=== PATIENT | male | born 1940 | race Caucasian/White ===

== ENCOUNTER 2016-05-05 16:18 | Inpatient (IN) | payer OTHER ==
[2016-05-05 16:50] VITALS: BMI 26.6
--- NOTE | 2016-05-05 16:53 | PDOC ---
History of Present Illness - History of Present Illness Initial Comments: 05/05/16 17:29 The patient is a 65 year old male with no significant past medical history hypertension, diabetes, hyperlipidemia, CAD s/p 4 stents who presents to the emergency department with cough, fever, and sore throat for the last 3 days. The patient states his symptoms have been getting worse so he went to see his PMD earlier today who referred him to the ED. He reports a fever, Tmax 102.4 F with associated chills. The patient has a productive cough with white sputum. The patient denies any chest pain or shortness of breath. He denies associated chills. The patient denies any abdominal pain, nausea, or vomiting. He denies any recent sick contacts. The patient is a former smoker and quit >10 years ago. PMD: Dr. Reddy <Christine Romo - Last Filed: 05/05/16 17:29> - General History Source: Patient, Old Records Exam Limitations: No Limitations <Albina Landis - Last Filed: 05/05/16 18:51> - General Chief Complaint: SIRS, Suspected/Possible Stated Complaint: FEVER Time Seen by Provider: 05/05/16 16:31 Past History <Christine Romo - Last Filed: 05/05/16 17:29> - Past Medical History Anemia: No Asthma: No Cancer: No Cardiac Disorders: Yes (STENT, PACEMAKER) CVA: No COPD: No CHF: No Dementia: No Diabetes: Yes (NIDDM) GI Disorders: Yes (VILLOUS MASS) Disorders: No HTN: Yes Hypercholesterolemia: Yes Liver Disease: No Seizures: No Thyroid Disease: No - Surgical History Abdominal Surgery: No Appendectomy: No Cardiac Surgery: Yes (OPEN HEART SX, STENT PLACEMENT) Cholecystectomy: No Lung Surgery: No Neurologic Surgery: No Orthopedic Surgery: No - Psycho/Social/Smoking Cessation Hx Anxiety: No Suicidal Ideation: No Smoking History: Never smoked Have you smoked in the past 12 months: No Information on smoking cessation initiated: No Hx Alcohol Use: No Drug/Substance Use Hx: No Substance Use Type: None Hx Substance Use Treatment: No <Albina Landis - Last Filed: 05/05/16 18:51> - Past Medical History Allergies/Adverse Reactions: Allergies Allergy/AdvReac Type Severity Reaction Status Date / Time No Known Allergies Allergy Verified 05/05/16 16:50 Home Medications: Ambulatory Orders Amlodipine Besylate [Norvasc -] 10 mg PO DAILY 07/28/12 Aspirin 81 mg PO DAILY 07/28/12 Atorvastatin Ca [Lipitor] 40 mg PO HS 07/28/12 Carvedilol [Coreg -] 25 mg PO DAILY 07/28/12 Furosemide [Lasix -] 40 mg PO DAILY 07/28/12 Glipizide [Glucotrol -] 5 mg PO DAILY@0700 07/28/12 Review of Systems - Review of Systems Able to Perform ROS?: Yes Comments:: 05/05/16 17:29 GENERAL/CONSTITUTIONAL: +Fever. No chills. No weakness. HEAD, EYES, EARS, NOSE AND THROAT: No change in vision. No ear pain or discharge. No sore throat. CARDIOVASCULAR: No chest pain or shortness of breath. RESPIRATORY: +Cough. No wheezing or hemoptysis. GASTROINTESTINAL: No nausea, vomiting, diarrhea or constipation. GENITOURINARY: No dysuria, frequency, or change in urination. MUSCULOSKELETAL: No joint or muscle swelling or pain. No neck or back pain. SKIN: No rash NEUROLOGIC: No headache, vertigo, loss of consciousness, or change in strength/ sensation. ENDOCRINE: No increased thirst. No abnormal weight change. HEMATOLOGIC/LYMPHATIC: No anemia, easy bleeding, or history of blood clots. ALLERGIC/IMMUNOLOGIC: No hives or skin allergy. <Christine Romo - Last Filed: 05/05/16 17:29> *Physical Exam - Vital Signs Last Vital Signs Temp Pulse Resp BP Pulse Ox 102.3 F H 70 18 118/65 95 05/05/16 16:20 05/05/16 16:20 05/05/16 16:20 05/05/16 16:20 05/05/16 16:20 - Physical Exam Comments: 05/05/16 17:29 GENERAL: Awake, alert, and fully oriented, in no acute distress HEAD: No signs of trauma EYES: PERRLA, EOMI, sclera anicteric, conjunctiva clear ENT: Auricles normal inspection, hearing grossly normal, nares patent, oropharynx clear without exudates. Moist mucosa NECK: Normal ROM, supple, no lymphadenopathy, JVD, or masses LUNGS: +Diffuse rhonchi with expiratory wheezing HEART: Regular rate and rhythm, normal S1 and S2, no murmurs, rubs or gallops ABDOMEN: Soft, nontender, normoactive bowel sounds. No guarding, no rebound. No masses EXTREMITIES: Normal range of motion, no edema. No clubbing or cyanosis. No cords, erythema, or tenderness NEUROLOGICAL: Cranial nerves II through XII grossly intact. Normal speech, normal gait SKIN: Warm, Dry, normal turgor, no rashes or lesions noted. <Christine Romo - Last Filed: 05/05/16 17:29> - Vital Signs Last Vital Signs Temp Pulse Resp BP Pulse Ox 102.3 F H 70 18 118/65 95 05/05/16 16:20 05/05/16 16:20 05/05/16 16:20 05/05/16 16:20 05/05/16 16:20 <Albina Landis - Last Filed: 05/05/16 18:51> ED Treatment Course - LABORATORY CBC & Chemistry Diagram: 05/05/16 17:25 05/05/16 17:25 <Albina Landis - Last Filed: 05/05/16 18:51> Medical Decision Making - Medical Decision Making 05/05/16 17:25 75-year-old male with history of hypertension, PM, diabetes and hyperlipidemia who presents to the emergency department with five-day history of fever and cough productive with white sputum; the patient is febrile to 102.4 F in the emergency department. Differential diagnosis includes but is not limited to: Influenza, pneumonia, URI, CHF exacerbation, reactive airway disease, electrolyte abnormality, dehydration, toxic/metabolic derangement. Plan: 1. Labs 2. Chest x-ray 3. DuoNeb treatment 4. Tylenol for fever 5. Observe and reevaluate 05/05/16 18:32 Addendum: Labs are remarkable for a troponin that was elevated at 0.19 and a BNP is 15,000. Chest x-ray is still pending. We will call Dr. Reddy for admission. <Albina Landis - Last Filed: 05/05/16 18:51> *DC/Admit/Observation/Transfer - Attestations Scribe Attestion: 05/05/16 17:29 Documentation prepared by Christine Romo, acting as medical consultant for Albina Landis MD. <Christine Romo - Last Filed: 05/05/16 17:29> - Discharge Dispostion Admit: Yes - Attestations Physician Attestion: 05/05/16 17:27 I, Dr. Albina Landis, attest that the scribes documentation that appears above has been prepared under my direction and personally reviewed by me in its entirety. I confirmed that the note above accurately reflects all work, treatment, procedures, and medical decision-making performed by me. <Albina Landis - Last Filed: 05/05/16 18:51> Diagnosis at time of Disposition: Fever, Systemic inflammatory response syndrome (SIRS) - Discharge Dispostion Disposition: HOME Condition at time of disposition: Stable - Referrals Referrals: Gordon Reddy MD [Primary Care Provider] -
[2016-05-05] MEDS ORDERED: ACETAMINOPHEN 500 MG TABLET (FP) PO ONE (16:56)
[2016-05-05] MEDS ORDERED: ACETAMINOPHEN 325 MG TABLET (FP) ONE (17:22)
[2016-05-05] MEDS ORDERED: IPRATROPIUM BR 0.02% 0.5 MG/2.5 ML VIAL.NEB. NEB ONE (17:28)
[2016-05-05] MEDS ORDERED: ALBUTEROL SO4 0.083% IH SOL 2.5 MG/3 ML VIAL.NEB. NEB ONE (17:28)
[2016-05-05] MEDS ORDERED: ALBUTEROL SO4 2.5/IPRATROPIUM 0.5 INH SOL 3 ML VIAL.NEB. NEB ONE (17:29)
[2016-05-05 17:35] LABS: MCHC 32.5 g/dl (32.0-35.9); MEAN CELL VOLUME 85.9 fl (80-96); MEAN PLT VOLUME 9.4 fl (7.5-11.1); PLATELET COUNT 213 K/MM3 (134-434); RDW 14.9 % (11.9-15.9); WHITE BLOOD COUNT 11.4 K/mm3 (4.0-10.0)
[2016-05-05 18:22] LABS: ALBUMIN 2.9 g/dl (3.4-5.0); BILIRUBIN,TOTAL 2.3 mg/dL (0.2-1.0); CALCIUM 8.1 mg/dL (8.5-10.1); CREATININE 1.5 mg/dL (0.7-1.3); TOT PROT 6.6 g/dl (6.4-8.2)
[2016-05-05 18:25] LABS: TROPONIN I 0.19 ng/ml (0.00-0.05)
[2016-05-05] MEDS ORDERED: AZITHROMYCIN IVPB 500 MG in DEXTROSE 5%-WATER - 250 ML IVPB ONE (18:33)
[2016-05-05 18:49] LABS: PLATELET ESTIMATE ADEQUATE (NORMAL)
[2016-05-05 19:08] LABS: URINE APPEARANCE CLEAR; URINE BILIRUBIN NEGATIVE (NEGATIVE); URINE BLOOD NEGATIVE (NEGATIVE); URINE COLOR YELLOW; URINE GLUCOSE (UA) NEGATIVE (NEGATIVE); URINE KETONE NEGATIVE (NEGATIVE); URINE LEUK ESTERASE NEGATIVE (NEGATIVE); URINE NITRITE NEGATIVE (NEGATIVE); URINE PROTEIN NEGATIVE (NEGATIVE); URINE UROBILINOGEN NEGATIVE E.U./dl (0.2-1.0)
[2016-05-05] MEDS ORDERED: CEFTRIAXONE 50 ML ONE (19:16)
[2016-05-05] MEDS ORDERED: AZITHROMYCIN IVPB 250 ML IVPB ONE (19:16)
[2016-05-05] MEDS ORDERED: ACETAMINOPHEN 325 MG TABLET (FP) PO PRN (20:05)
[2016-05-05] MEDS ORDERED: ATORVASTATIN CA 40 MG TABLET (FP) ONE (22:18)
[2016-05-05] MEDS ORDERED: ASPIRIN 81 MG CHEWABLE TABLETS ONE (22:18)
[2016-05-05] MEDS ORDERED: CARVEDILOL 12.5 MG TABLET (FP) ONE (22:18)
[2016-05-05] MEDS: ASPIRIN 81 MG CHEWABLE TABLETS PO SCH (22:58)
[2016-05-05] MEDS: CARVEDILOL 25 MG TABLET (FP) PO SCH (22:58)
[2016-05-05] MEDS: ATORVASTATIN CA 40 MG TABLET (FP) PO SCH (22:59)
[2016-05-05] MEDS ORDERED: HEPARIN NA (PORCINE) 5,000 UNITS/ML 1ML VIAL ONE (23:00)
[2016-05-05] MEDS: HEPARIN NA (PORCINE) 5,000 UNITS/ML 1ML VIAL SQ SCH (23:01)
[2016-05-05 23:29] LABS: TROPONIN I 0.13 ng/ml (0.00-0.05)
[2016-05-05] MEDS: methylPREDNISolone NA SUCC 40 MG/1 ML VIAL IVPB SCH (23:53)
[2016-05-06] MEDS: ALBUTEROL SO4 2.5/IPRATROPIUM 0.5 INH SOL 3 ML VIAL.NEB. NEB SCH ×2 (00:17→07:00)
[2016-05-06] MEDS: glipiZIDE 5 MG TABLET (FP) PO SCH (06:29)
[2016-05-06 07:33] LABS: BASOPHIL 0.3 % (0-2.0); MCH 28.3 pg (25.7-33.7); MCHC 32.9 g/dl (32.0-35.9); MEAN PLT VOLUME 9.2 fl (7.5-11.1); NEUTROPHILS 90.6 % (42.8-82.8); PLATELET COUNT 217 K/MM3 (134-434); RDW 15.1 % (11.9-15.9)
[2016-05-06 07:59] LABS: ALBUMIN 2.9 g/dl (3.4-5.0); CALCIUM 8.4 mg/dL (8.5-10.1)
--- NOTE | 2016-05-06 08:05 | HP ---
Admitting History and Physical - Primary Care Physician PCP: DR NITO LEONARDO - Admission History of Present Illness: 65 year old male with no significant past medical history hypertension, diabetes , hyperlipidemia, CAD s/p 4 stents who presents to the emergency department with cough, fever, and sore throat for the last 3 days. The patient states his symptoms have been getting worse so he went to see his PMD earlier today who referred him to the ED. He reports a fever, Tmax 102.4 F with associated chills. The patient has a productive cough with white sputum. The patient denies any chest pain or shortness of breath. He denies associated chills. The patient denies any abdominal pain, nausea, or vomiting. He denies any recent sick contacts. The patient is a former smoker and quit >10 years ago. THIS AM PT FEELS BETTER - Past Medical History Cardiovascular: Yes: CAD (Stent placement.), CHF, HTN, Hyperlipdemia. No: AFIB - Smoking History Smoking history: Never smoked Have you smoked in the past 12 months: No - Alcohol/Substance Use Hx Alcohol Use: No History of Substance Use: reports: None Home Medications - Allergies Allergies/Adverse Reactions: Allergies Allergy/AdvReac Type Severity Reaction Status Date / Time No Known Allergies Allergy Verified 05/05/16 16:50 - Home Medications Home Medications: Ambulatory Orders Amlodipine Besylate [Norvasc -] 10 mg PO DAILY 07/28/12 Aspirin 81 mg PO DAILY 07/28/12 Atorvastatin Ca [Lipitor] 40 mg PO HS 07/28/12 Carvedilol [Coreg -] 25 mg PO DAILY 07/28/12 Furosemide [Lasix -] 40 mg PO DAILY 07/28/12 Glipizide [Glucotrol -] 5 mg PO DAILY@0700 07/28/12 Review of Systems - Review of Systems Constitutional: reports: Fever HENT: reports: Throat Pain Cardiovascular: denies: Chest Pain Respiratory: reports: Cough, Wheezing. denies: SOB on Exertion Gastrointestinal: denies: Abdominal Pain Genitourinary: reports: No Symptoms Physical Examination Vital Signs: Vital Signs Temperature 97.3 F L 05/06/16 07:43 Pulse Rate 71 05/06/16 07:43 Respiratory Rate 18 05/06/16 07:43 Blood Pressure 108/67 05/06/16 07:43 O2 Sat by Pulse Oximetry (%) 95 05/06/16 07:40 Neck: Yes: Supple Cardiovascular: Yes: Regular Rate and Rhythm, Murmur Respiratory: Yes: Diminished, Rhonchi, Wheezes Gastrointestinal: Yes: Normal Bowel Sounds, Soft Edema: No Labs: CBC, BMP 05/06/16 05:35 Problem List - Problems (1) Fever Assessment/Plan: DUE TO RESPIRATORY SYMPTOMS FLU NEG CT OF CHEST ABX Code(s): R50.9 - FEVER, UNSPECIFIED (2) Chronic systolic CHF (congestive heart failure) Assessment/Plan: MONITOR ON MEDS Code(s): I50.22 - CHRONIC SYSTOLIC (CONGESTIVE) HEART FAILURE (3) Diabetes mellitus Assessment/Plan: BGM HA1C Code(s): E11.9 - TYPE 2 DIABETES MELLITUS WITHOUT COMPLICATIONS (4) Hypertension Assessment/Plan: Vital Signs Period Temp Pulse Resp BP Sys/Alfaro Pulse Ox Last 24 Hr 97.3 F-102.3 F 70-72 16-24 97-118/50-70 95-99 Code(s): I10 - ESSENTIAL (PRIMARY) HYPERTENSION (5) ICD (implantable cardioverter-defibrillator) malfunction Assessment/Plan: CARDIO Code(s): T82.9XXA - UNSP COMP OF CARDIAC AND VASCULAR PROSTH DEV/GRFT, INIT (6) Elevated troponin Assessment/Plan: MAYBE DEMAND TEL FOLLOW CE CARDIO Code(s): R79.89 - OTHER SPECIFIED ABNORMAL FINDINGS OF BLOOD CHEMISTRY
[2016-05-06 08:07] LABS: BILIRUBIN,TOTAL 1.5 mg/dL (0.2-1.0); CREATININE 1.3 mg/dL (0.7-1.3); TOT PROT 6.7 g/dl (6.4-8.2); TROPONIN I 0.08 ng/ml (0.00-0.05)
[2016-05-06] MEDS: methylPREDNISolone NA SUCC 40 MG/1 ML VIAL IVPB SCH ×3 (09:16→21:32)
[2016-05-06] MEDS: HEPARIN NA (PORCINE) 5,000 UNITS/ML 1ML VIAL SQ SCH ×2 (09:16→21:32)
[2016-05-06] MEDS: CARVEDILOL 25 MG TABLET (FP) PO SCH ×2 (09:16→21:33)
[2016-05-06] MEDS: ASPIRIN 81 MG CHEWABLE TABLETS PO SCH (09:18)
[2016-05-06] MEDS: FUROSEMIDE 40 MG TABLET (FP) PO SCH (09:19)
[2016-05-06] MEDS: cefTRIAXone 1 GM/50 ML BAG (PRE-DOCKED) IVPB SCH (09:21)
--- NOTE | 2016-05-06 09:35 | PN ---
Progress Note (short form) - Note Progress Note: ID Consult dictated Probable community acquired v. atypical pneumonia Possible sepsis secondary to pneumonia Bronchospasm Await sputum c/s, legionella/pneumococcal ag CT chest Continue empiric ceftriaxone/ zithromax
[2016-05-06] MEDS ORDERED: AZITHROMYCIN IVPB 500 MG in DEXTROSE 5%-WATER - 250 ML IVPB SCH (10:00)
[2016-05-06] MEDS ORDERED: CEFTRIAXONE 1 GM in DEXTROSE 5%-WATER - 100 ML IVPB SCH (10:00)
[2016-05-06] MEDS ORDERED: amLODIPine BESYLATE 10 MG TABLET (FP) PO SCH (10:00)
--- NOTE | 2016-05-06 10:42 | CONS ---
INFECTIOUS DISEASE CONSULTATION DATE OF CONSULTATION: DATE OF DICTATION: 05/06/2016 The patient is a 75-year-old male with a history of coronary artery disease, former smoker, evaluated for possible pneumonia. The patient was sent to the emergency room by his primary care physician after he was noted to have fever. According to the PMD, he had complained of sinus congestion, sore throat, and cough. He was evaluated in the emergency room where his temperature was 102.3. A rapid flu antigen was performed and was negative. He was noted to have diffuse wheezing and rales. Chest x-ray showed increased markings bilaterally. Cultures were obtained. He was empirically treated with Zithromax and ceftriaxone. The patient has a significant cardiac history. He is status post multiple coronary artery stents, bypass surgery, and implanted defibrillator. He denies any recent hospitalizations. The patient lives at home alone. He denies any ill contacts. He has a home health aide who comes 6 hours daily. He is a former smoker, states he stopped many years ago and was never a heavy smoker. He states he was up to date with respect to his influenza vaccine. No recent hospitalizations. No recent travel or significant pet exposure. PAST MEDICAL HISTORY: Positive for coronary artery disease, hypertension, hyperlipidemia, congestive heart failure, diabetes mellitus, colonic polyps, diverticulosis. PAST SURGICAL HISTORY: Status post coronary artery bypass graft and implanted defibrillator. ALLERGIES: No known allergies. MEDICATIONS: Include Solu-Medrol, Zithromax, ceftriaxone, Tylenol, Coreg, Norvasc, Lipitor, Lasix, aspirin, Glucotrol. SOCIAL HISTORY: He lives alone at home. He is originally from [place], has been living in the [facility] since [address]. 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 He is a former smoker, stopped many years ago. No history of alcoholism or illicit drug use. SYSTEMS REVIEW: Neurologic: No loss of consciousness, seizure activity, or focal weakness. Cardiac: Negative chest pain or palpitations. Respiratory: As per HPI. Gastrointestinal: Negative vomiting or diarrhea. Genitourinary: Negative for urinary tract infection. LABORATORY DATA: White count on admission 11.4, presently 11.0; hematocrit 36.2; platelet count 217. BUN 31, creatinine 1.3. Urinalysis: Negative leukocyte esterase. Chest x-ray shows increased pulmonary vascular congestion bilaterally. PHYSICAL EXAMINATION: General: He is awake and alert. He is in no acute respiratory distress. Vital Signs: Temperature 97.3, T-max 102.3; blood pressure 108/67; pulse 71, regular; respirations 18 per minute. HEENT: Sclerae anicteric. Neck: Supple. Heart: Sounds S1, S2. No murmur. Lungs: Diffuse wheezing bilaterally. Scattered rhonchi. Bibasilar crepitations. Abdomen: Soft. No tenderness elicited. No mass, rebound, or rigidity. Extremities: Edema 1+. IMPRESSION: 1. Probable community-acquired versus atypical pneumonia. 2. Possible sepsis secondary to pneumonia. 3. Asthmatic bronchitis with bronchospasm. 4. Possible viral syndrome. 5. Coronary artery disease. We will obtain sputum culture, urine, legionella, and pneumococcal antigens. Continue intravenous corticosteroids and inhaled bronchodilators. Empiric coverage for community-acquired/atypical pathogens with Zithromax and ceftriaxone. A CAT scan of the chest has been ordered. Further recommendations pending cultures. We will follow. Thank you for the kind referral. GENESIS ANNE M.D. [id number]
--- NOTE | 2016-05-06 11:08 | CON.CARD ---
Consult Consult Specialty:: cardiology Reason for Consultation:: hx CABG, systolic CHF; ICD. Now with respiratory compromise; sepsis - History of Present Illness Chief Complaint: Pt denies chest pain or dyspnea. History of Present Illness: The patient is a 65 year old male with past medical history NM, CABG 2002, subsequent coronary stents, systoic CHF; s/p ICD, hypertension, diabetes, hyperlipidemia, who presents to the emergency department with cough, fever, and sore throat for the last 3 days. The patient states his symptoms have been getting worse so he went to see his PMD earlier today who referred him to the ED. He reports a fever, Tmax 102.4 F with associated chills. The patient has a productive cough with white sputum. The patient denies any chest pain or shortness of breath. He denies associated chills. The patient denies any abdominal pain, nausea, or vomiting. He denies any recent sick contacts. The patient is a former smoker and quit in 2005. PMD: Dr. Reddy - History Source History Provided By: Patient, Medical Record Limitations to Obtaining History: No Limitations - Past Medical History Cardio/Vascular: Yes: CAD (Stent placement.), CHF, HTN, Hyperlipdemia. No: AFIB Pulmonary: Yes: Bronchitis, Pneumonia - Past Surgical History Past Surgical History: Yes: AICD, CABG, Stent (coronary) - Alcohol/Substance Use Hx Alcohol Use: No History of Substance Use: reports: None - Smoking History Smoking history: Never smoked Have you smoked in the past 12 months: No - Social History Usual Living Arrangement: Alone Home Medications - Allergies Allergies/Adverse Reactions: Allergies Allergy/AdvReac Type Severity Reaction Status Date / Time No Known Allergies Allergy Verified 05/05/16 16:50 - Home Medications Home Medications: Ambulatory Orders Amlodipine Besylate [Norvasc -] 10 mg PO DAILY 07/28/12 Aspirin 81 mg PO DAILY 07/28/12 Atorvastatin Ca [Lipitor] 40 mg PO HS 07/28/12 Carvedilol [Coreg -] 25 mg PO DAILY 07/28/12 Furosemide [Lasix -] 40 mg PO DAILY 07/28/12 Glipizide [Glucotrol -] 5 mg PO DAILY@0700 07/28/12 Family Disease History - Family Disease History Family History: Denies Review of Systems - Review of Systems Constitutional: reports: Chills, Fever Eyes: reports: No Symptoms HENT: reports: Nasal Congestion Neck: reports: No Symptoms Cardiovascular: reports: No Symptoms Respiratory: reports: Cough, SOB on Exertion, Wheezing Gastrointestinal: reports: No Symptoms Genitourinary: reports: No Symptoms Breasts: reports: No Symptoms Reported Musculoskeletal: reports: No Symptoms Integumentary: reports: No Symptoms Neurological: reports: No Symptoms Endocrine: reports: No Symptoms Hematology/Lymphatic: reports: No Symptoms Psychiatric: reports: No Symptoms - Risk Factors Known Risk Factors: Yes: Age, Gender, Hypercholesterolemia, Hypertension, Physical Inactivity, Prior NM /Emb Stroke, Smoking (former) Vital Signs: Vital Signs Temperature 97.3 F L 05/06/16 07:43 Pulse Rate 71 05/06/16 07:43 Respiratory Rate 18 05/06/16 07:43 Blood Pressure 108/67 05/06/16 07:43 O2 Sat by Pulse Oximetry (%) 95 05/06/16 07:40 Constitutional: Yes: Calm Eyes: Yes: WNL HENT: Yes: WNL Neck: Yes: WNL Respiratory: Yes: Diminished, Wheezes (diffuse expiraory; bilateral) Gastrointestinal: Yes: Soft Renal/: No: Anuria Cardiovascular: Yes: Regular Rate and Rhythm JVD: No Carotid Bruit: No PMI: Displaced Heart Sounds: Yes: Split S2 Murmur: Yes: Systolic Murmur, Grade 2 Musculoskeletal: Yes: Muscle Weakness Extremities: Yes: WNL Edema: No Peripheral Pulses WNL: Yes Integumentary: Yes: WNL Neurological: Yes: WNL Psychiatric: Yes: WNL - Other Data Labs, Other Data: CBC, BMP 05/06/16 05:35 05/06/16 05:35 Troponin, BNP 05/05/16 05/06/16 22:35 05:35 Troponin I 0.13 H D 0.08 H D Troponin, BNP 05/05/16 05/06/16 22:35 05:35 Troponin I 0.13 H D 0.08 H D Laboratory Results - last 24 hr 05/05/16 05/05/16 05/05/16 17:25 17:25 17:25 WBC 11.4 H D RBC 4.08 Hgb 11.4 L D Hct 35.0 L MCV 85.9 MCHC 32.5 RDW 14.9 Plt Count 213 MPV 9.4 D Neutrophils % 74.0 D Lymphocytes % 10.0 D Monocytes % 12.0 H Eosinophils % Basophils % Band Neutrophils 4.0 Platelet Estimate Adequate RBC Morphology Appears normal Sodium 142 Potassium 3.6 Chloride 108 H Carbon Dioxide 25 Anion Gap 9 BUN 29 H D Creatinine 1.5 H D Creat Clearance w eGFR 45.62 POC Glucometer Random Glucose 136 H Hemoglobin A1c % Lactic Acid 1.590 Calcium 8.1 L Total Bilirubin 2.3 H D AST 23 ALT 20 D Alkaline Phosphatase 93 D Creatine Kinase Creatine Kinase Index CK-MB (CK-2) CK-MB (CK-2) Rel Index Troponin I B-Natriuretic Peptide Total Protein 6.6 Albumin 2.9 L D Triglycerides Cholesterol Total LDL Cholesterol HDL Cholesterol Urine Color Urine Appearance Urine pH Ur Specific [place] Urine Protein Urine Glucose (UA) Urine Ketones Urine Blood Urine Nitrite Urine Bilirubin Urine Urobilinogen Ur Leukocyte Esterase 05/05/16 05/05/16 05/05/16 17:25 17:25 18:10 WBC RBC Hgb Hct MCV MCHC RDW Plt Count MPV Neutrophils % Lymphocytes % Monocytes % Eosinophils % Basophils % Band Neutrophils Platelet Estimate RBC Morphology Sodium Potassium Chloride Carbon Dioxide Anion Gap BUN Creatinine Creat Clearance w eGFR POC Glucometer Random Glucose Hemoglobin A1c % Lactic Acid Calcium Total Bilirubin AST ALT Alkaline Phosphatase Creatine Kinase 136 Creatine Kinase Index CK-MB (CK-2) CK-MB (CK-2) Rel Index Troponin I 0.19 H D B-Natriuretic Peptide 10987.33 H Total Protein Albumin Triglycerides Cholesterol Total LDL Cholesterol HDL Cholesterol Urine Color Yellow Urine Appearance Clear Urine pH 5.0 Ur Specific [place] 1.014 Urine Protein Negative Urine Glucose (UA) Negative Urine Ketones Negative Urine Blood Negative Urine Nitrite Negative Urine Bilirubin Negative Urine Urobilinogen Negative Ur Leukocyte Esterase Negative 05/05/16 05/05/16 05/06/16 22:35 22:35 05:35 WBC 11.0 H RBC 4.21 Hgb 11.9 Hct 36.2 MCV 86.0 MCHC 32.9 RDW 15.1 Plt Count 217 MPV 9.2 Neutrophils % 90.6 H D Lymphocytes % 5.5 L D Monocytes % 3.6 L Eosinophils % 0.0 D Basophils % 0.3 Band Neutrophils Platelet Estimate RBC Morphology Sodium Potassium Chloride Carbon Dioxide Anion Gap BUN Creatinine Creat Clearance w eGFR POC Glucometer Random Glucose Hemoglobin A1c % Lactic Acid Calcium Total Bilirubin AST ALT Alkaline Phosphatase Creatine Kinase 151 Creatine Kinase Index 1.1 CK-MB (CK-2) 1.694 CK-MB (CK-2) Rel Index Cancelled Troponin I 0.13 H D B-Natriuretic Peptide Total Protein Albumin Triglycerides Cholesterol Total LDL Cholesterol HDL Cholesterol Urine Color Urine Appearance Urine pH Ur Specific [place] Urine Protein Urine Glucose (UA) Urine Ketones Urine Blood Urine Nitrite Urine Bilirubin Urine Urobilinogen Ur Leukocyte Esterase 05/06/16 05/06/16 05/06/16 05:35 05:35 06:13 WBC RBC Hgb Hct MCV MCHC RDW Plt Count MPV Neutrophils % Lymphocytes % Monocytes % Eosinophils % Basophils % Band Neutrophils Platelet Estimate RBC Morphology Sodium 144 Potassium 3.8 Chloride 108 H Carbon Dioxide 28 Anion Gap 8 BUN 31 H Creatinine 1.3 Creat Clearance w eGFR 53.82 POC Glucometer 147 Random Glucose 157 H Hemoglobin A1c % 5.9 Lactic Acid Calcium 8.4 L Total Bilirubin 1.5 H D AST 18 D ALT 20 Alkaline Phosphatase 95 Creatine Kinase 148 Creatine Kinase Index CK-MB (CK-2) CK-MB (CK-2) Rel Index Troponin I 0.08 H D B-Natriuretic Peptide Total Protein 6.7 Albumin 2.9 L Triglycerides 77 Cholesterol 93 Total LDL Cholesterol 47 HDL Cholesterol 26 L Urine Color Urine Appearance Urine pH Ur Specific [place] Urine Protein Urine Glucose (UA) Urine Ketones Urine Blood Urine Nitrite Urine Bilirubin Urine Urobilinogen Ur Leukocyte Esterase Abnormal Lab Results 05/05/16 05/05/16 05/05/16 17:25 17:25 17:25 WBC 11.4 H D Hgb 11.4 L D Hct 35.0 L Neutrophils % Lymphocytes % Monocytes % 12.0 H Chloride 108 H BUN 29 H D Creatinine 1.5 H D Random Glucose 136 H Calcium 8.1 L Total Bilirubin 2.3 H D Troponin I 0.19 H D B-Natriuretic Peptide Albumin 2.9 L D HDL Cholesterol 05/05/16 05/05/16 05/06/16 17:25 22:35 05:35 WBC 11.0 H Hgb Hct Neutrophils % 90.6 H D Lymphocytes % 5.5 L D Monocytes % 3.6 L Chloride BUN Creatinine Random Glucose Calcium Total Bilirubin Troponin I 0.13 H D B-Natriuretic Peptide 59492.33 H Albumin HDL Cholesterol 05/06/16 05:35 WBC Hgb Hct Neutrophils % Lymphocytes % Monocytes % Chloride 108 H BUN 31 H Creatinine Random Glucose 157 H Calcium 8.4 L Total Bilirubin 1.5 H D Troponin I 0.08 H D B-Natriuretic Peptide Albumin 2.9 L HDL Cholesterol 26 L Ejection Fraction %: LVEF < 40 % Imaging - Results Chest X-ray: Image Reviewed Cat Scan: Image Reviewed (large RLL ccnsolidation;; small right ploeral effusion ; bilateral mediastinal lymphadenopathy) EKG: Image Reviewed (ventricula pacing) Problem List - Problems (1) Bronchospasm, acute Code(s): J98.01 - ACUTE BRONCHOSPASM (2) Hx of CABG Assessment/Plan: On ASA 81 mg/day. Continue carvedilol; add lisinopril (and discontinue amlodipine); start spironolactone if BUN/Cr and electrolytes allow. Code(s): Z95.1 - PRESENCE OF AORTOCORONARY BYPASS GRAFT (3) Pneumonia Assessment/Plan: RtLL large consolidation; r/o malignancy. F/u this lesion while pneumonia and CHF are being treated. (Quit smoking in 2005). Code(s): J18.9 - PNEUMONIA, UNSPECIFIED ORGANISM (4) CAD (coronary artery disease) Code(s): I25.10 - ATHSCL HEART DISEASE OF [place] CORONARY ARTERY W/O ANG PCTRS (5) Chronic systolic CHF (congestive heart failure) Assessment/Plan: On carvedilol. Discontinue amlodipine. Start lisinopril; f/u BP, BUN/Cr, and electrolytes. Start spironolactone. F/u ECHO. F/u TSH. Code(s): I50.22 - CHRONIC SYSTOLIC (CONGESTIVE) HEART FAILURE (6) Diabetes mellitus Code(s): E11.9 - TYPE 2 DIABETES MELLITUS WITHOUT COMPLICATIONS (7) Hyperlipidemia Assessment/Plan: Total cholesterol <100mg/dL; on atorvastatin 40 mg daily. Code(s): E78.5 - HYPERLIPIDEMIA, UNSPECIFIED (8) Hypertension Code(s): I10 - ESSENTIAL (PRIMARY) HYPERTENSION (9) ICD (implantable cardioverter-defibrillator) malfunction Assessment/Plan: ICD interrogated recently in office; no events. Code(s): T82.9XXA - UNSP COMP OF CARDIAC AND VASCULAR PROSTH DEV/GRFT, INIT (10) Lung mass Assessment/Plan: F/u with pulmonology. F/u lesion while CHF and pneumonia are treated. Code(s): R91.8 - OTHER NONSPECIFIC ABNORMAL FINDING OF LUNG FIELD (11) Elevated troponin Assessment/Plan: Mild elevation in TNI (maximum 0.19) with normal CK; no chest pain or dyspnea. Doubt ischemic etiology of this mild increase; sepsis and CHF may contribute to the elevation. EKG: ventricular pacing. Code(s): R79.89 - OTHER SPECIFIED ABNORMAL FINDINGS OF BLOOD CHEMISTRY
--- NOTE | 2016-05-06 11:20 | PN ---
Progress Note (short form) - Note Progress Note: PULMONARY CONSULTATION DICTATED 05/06/16 IMP RLL CONSOLIDATION LIKELY PNEUMONIA, CANNOT R/O MALIGNANCY BRONCHOSPASM MEDIASTINAL ADENOPATHY LIKELY REACTIVE ASHD S/P CABG H/O CHF HTN DM H/O SMOKING PLAN IV ANTIBIOTICS IV STEROIDS INHALED BRONCHODILATORS SUPPLEMENTAL O2 CULTURES LEGIONELLA URINARY ANTIGEN F/U CHEST CT 4-6 WKS TO DOCUMENT RESOLUTION OF INFILTRATE,IF NO IMPROVEMENT WILL NEED BX TO R/O MALIGNANCY Problem List - Problems (1) Elevated troponin Code(s): R79.89 - OTHER SPECIFIED ABNORMAL FINDINGS OF BLOOD CHEMISTRY (2) Fever Code(s): R50.9 - FEVER, UNSPECIFIED (3) Systemic inflammatory response syndrome (SIRS) Code(s): R65.10 - SIRS OF NON-INFECTIOUS ORIGIN W/O ACUTE ORGAN DYSFUNCTION (4) CAD (coronary artery disease) Code(s): I25.10 - ATHSCL HEART DISEASE OF [place] CORONARY ARTERY W/O ANG PCTRS (5) Chronic systolic CHF (congestive heart failure) Code(s): I50.22 - CHRONIC SYSTOLIC (CONGESTIVE) HEART FAILURE (6) Diabetes mellitus Code(s): E11.9 - TYPE 2 DIABETES MELLITUS WITHOUT COMPLICATIONS (7) Hyperlipidemia Code(s): E78.5 - HYPERLIPIDEMIA, UNSPECIFIED (8) Hypertension Code(s): I10 - ESSENTIAL (PRIMARY) HYPERTENSION (9) ICD (implantable cardioverter-defibrillator) malfunction Code(s): T82.9XXA - UNSP COMP OF CARDIAC AND VASCULAR PROSTH DEV/GRFT, INIT (10) Pneumonia Code(s): J18.9 - PNEUMONIA, UNSPECIFIED ORGANISM (11) DVT prophylaxis Code(s): CEO6466 - (12) Hx of CABG Code(s): Z95.1 - PRESENCE OF AORTOCORONARY BYPASS GRAFT (13) Bronchospasm, acute Code(s): J98.01 - ACUTE BRONCHOSPASM
[2016-05-06] MEDS ORDERED: ALBUTEROL SO4 0.083% IH SOL 2.5 MG/3 ML VIAL.NEB. NEB PRN (11:28)
[2016-05-06] MEDS: ARFORMOTEROL TARTRATE 15 MCG/2 ML VIAL NEB SCH ×2 (11:40→22:25)
[2016-05-06] MEDS: AZITHROMYCIN IVPB 500 MG/250 ML D5W PRE-DOCKED IVPB SCH (12:46)
--- NOTE | 2016-05-06 13:08 | CONS ---
DATE OF CONSULTATION: 05/06/2016 REFERRING PHYSICIAN: Gordon Reddy MD HISTORY: The patient is a 75-year-old male with a past medical history of ASHD, status post CABG, status post ICD, history of tobacco use quit a few years ago admitted to [facility] with fever, chest congestion, sore throat, and sore throat. The patient apparently went to see his PMD at which time he was noted to be febrile to a temperature of 102.3. He was sent to the emergency room with the above. In the ER, he had a rapid influenza test, which was negative. He was also noted in the emergency room to have bilateral expiratory and inspiratory wheezes throughout. He had chest x-ray performed, which revealed increased markings. A CAT scan of the chest revealed a large right middle lobe consolidation. He was admitted to the floor for further therapy. On admission, he was evaluated by Dr. Cortes for Infectious Disease and placed on broad-spectrum antibiotics. He denies any chest pain, nausea, vomiting, or diaphoresis. He denies hemoptysis. He states his sputum is clear in color. Denies any recent travel. There is no history of occupational exposure to chemicals or fumes. PAST MEDICAL HISTORY: Again includes ASHD status post CABG, hypertension, hyperlipidemia, congestive heart failure, diabetes, colonic polyps, diverticulosis. PAST SURGICAL HISTORY: Includes a CABG, status post ICD placement. SOCIAL HISTORY: History of tobacco use. No occupational exposures. Born in [place]. Moved to the [facility] several years ago. REVIEW OF SYSTEMS: No orthopnea, no PND. Positive fever, positive cough, positive chest congestion. No chest pain, no palpitations, no nausea, no vomiting, no hemoptysis. CURRENT MEDICATIONS: Include Solu-Medrol 40 q.8, Tylenol, Zithromax, ceftriaxone, hepatitis subcutaneous, DuoNeb, Coreg, Norvasc, Lipitor, Lasix, aspirin, Glucotrol, and Prevnar. PHYSICAL EXAMINATION: GENERAL: The patient is a well-developed, well-nourished male awake and alert in no acute distress. VITAL SIGNS: He is afebrile. Blood pressure 108/67, respiratory rate 18, O2 saturation 95% on 2 L. His T-max is 102.3. HEENT: Normocephalic and atraumatic. NECK: Supple. HEART: Regular S1, S2. CHEST: Diffuse bilateral expiratory and inspiratory wheezes. ABDOMEN: Soft. Bowel sounds are positive. EXTREMITIES: No cyanosis or edema. LABORATORIES: WBC 11, hemoglobin 11.9, hematocrit 36.2, platelet count 217,000. Chemistries: BUN 31, creatinine 1.3. Troponin 0.08. BNP 15,218. Chest CT reveals there is a large mass-like consolidation in the medial aspect of the right lower lobe with air bronchograms. There is a mild hilar and mediastinal adenopathy and small right pleural effusion. IMPRESSION: 1. Right lower lobe consolidation, fever, chills. Right lower lobe consolidation likely community-acquired pneumonia. 2. Cannot exclude possible malignant etiology. 3. Bronchus cough, chest congestion, and bronchospasm secondary to pneumonia. 3. Hypertension. 4. Arteriosclerotic heart disease status post coronary artery bypass graft. 5. History of congestive heart failure. PLAN: Continue IV steroids, inhaled bronchodilators, supplemental O2, antibiotic therapy. Obtain follow up chest CT in approximately 4-6 weeks to document resolution of infiltrate and mediastinal adenopathy. If there is no significant improvement, would recommend further evaluation with bronchoscopy and a needle biopsy to rule out possible malignancy. Also obtain serum for cold agglutin, Legionella urine antigen, and sputum Kevin. Nicki [id number]
[2016-05-06] MEDS: TIOTROPIUM BROMIDE 18 MCG/INH (DEVICE W/ 5 CAPSULES) IH SCH (14:42)
--- NOTE | 2016-05-06 15:28 | EKG ---
Test Reason : Blood Pressure : / mmHG Vent. Rate : 070 BPM Atrial Rate : 071 BPM P-R Int : 000 ms QRS Dur : 240 ms QT Int : 548 ms P-R-T Axes : 000 -60 101 degrees QTc Int : 591 ms Ventricular-paced rhythm ABNORMAL ECG WHEN COMPARED WITH ECG OF 05-MAY-2016 22:57, NO SIGNIFICANT CHANGE WAS FOUND Confirmed by FLAKO PATEL MD ([id number]) on 05/06/2016 3:27:58 PM Referred By: SOPHIE BLOUNT Confirmed By:FLAKO PATEL MD
[2016-05-06] MEDS ORDERED: PNEUMOC 13-VAL CONJ-DIP CRM/PF 0.5 ML DISP.SYRIN IM ONE (16:00)
[2016-05-06] MEDS: LISINOPRIL 5 MG TABLET (FP) PO SCH (18:33)
[2016-05-06] MEDS: ATORVASTATIN CA 40 MG TABLET (FP) PO SCH (21:32)
[2016-05-07] MEDS: methylPREDNISolone NA SUCC 40 MG/1 ML VIAL IVPB SCH ×4 (02:43→22:15)
[2016-05-07] MEDS: glipiZIDE 5 MG TABLET (FP) PO SCH (06:04)
--- NOTE | 2016-05-07 09:13 | PN ---
Progress Note, Physician History of Present Illness: FEELS BETTER - Current Medication List Current Medications: Active Medications Acetaminophen (Tylenol -) 650 mg PO Q4H PRN PRN Reason: FEVER OR PAIN Albuterol Sulfate (Ventolin 0.083% Nebulizer Soln -) 1 amp NEB Q4H PRN PRN Reason: SHORT OF BREATH/WHEEZING Last Admin: 05/06/16 11:40 Dose: 1 amp Arformoterol Tartrate (Brovana (Restricted To Pulmonology/Resp) -) 1 amp NEB BID [facility] Last Admin: 05/06/16 22:25 Dose: 1 amp Aspirin (Asa -) 81 mg PO DAILY [facility] Last Admin: 05/06/16 09:18 Dose: 81 mg Atorvastatin Calcium (Lipitor -) 40 mg PO HS [facility] Last Admin: 05/06/16 21:32 Dose: 40 mg Azithromycin (Zithromax 500mg Ivpb (Pre-Docked)) 500 mg IVPB DAILY [facility] Last Admin: 05/06/16 12:46 Dose: 500 mg Carvedilol (Coreg -) 12.5 mg PO BID [facility] Last Admin: 05/06/16 21:33 Dose: 12.5 mg Ceftriaxone Sodium (Rocephin 1gm Ivpb (Pre-Docked)) 1 gm IVPB DAILY [facility] Last Admin: 05/06/16 09:21 Dose: 1 gm Furosemide (Lasix -) 40 mg PO DAILY [facility] Last Admin: 05/06/16 09:19 Dose: 40 mg Glipizide (Glucotrol -) 5 mg PO DAILY@0700 [facility] Last Admin: 05/07/16 06:04 Dose: Not Given Heparin Sodium (Porcine) (Heparin -) 5,000 unit SQ BID [facility] Last Admin: 05/06/16 21:32 Dose: 5,000 unit Lisinopril (Prinivil) 2.5 mg PO DAILY [facility] Last Admin: 05/06/16 18:33 Dose: 2.5 mg Methylprednisolone Sodium Succinate (Solu-Medrol -) 40 mg IVPB Q6H-IV [facility] Last Admin: 05/07/16 02:43 Dose: 40 mg Tiotropium [place] (Spiriva -) 1 puff IH DAILY [facility] Last Admin: 05/06/16 14:42 Dose: 1 inh - Objective Vital Signs: Vital Signs Temperature 98.2 F 05/07/16 09:00 Pulse Rate 76 05/07/16 09:00 Respiratory Rate 14 05/07/16 09:00 Blood Pressure 110/74 05/07/16 09:00 O2 Sat by Pulse Oximetry (%) 95 05/06/16 21:00 Cardiovascular: Yes: Regular Rate and Rhythm Respiratory: Yes: Diminished, Rhonchi Labs: CBC, BMP 05/06/16 05:35 05/06/16 05:35 Problem List - Problems (1) Fever Assessment/Plan: DUE TO RESPIRATORY SYMPTOMS FLU NEG CT OF CHEST ABX Code(s): R50.9 - FEVER, UNSPECIFIED (2) Chronic systolic CHF (congestive heart failure) Assessment/Plan: MONITOR ON MEDS Code(s): I50.22 - CHRONIC SYSTOLIC (CONGESTIVE) HEART FAILURE (3) Diabetes mellitus Assessment/Plan: BGM HA1C Code(s): E11.9 - TYPE 2 DIABETES MELLITUS WITHOUT COMPLICATIONS (4) Hypertension Assessment/Plan: Vital Signs Period Temp Pulse Resp BP Sys/Alfaro Pulse Ox Last 24 Hr 97.3 F-102.3 F 70-72 16-24 97-118/50-70 95-99 Code(s): I10 - ESSENTIAL (PRIMARY) HYPERTENSION (5) ICD (implantable cardioverter-defibrillator) malfunction Assessment/Plan: CARDIO Code(s): T82.9XXA - UNSP COMP OF CARDIAC AND VASCULAR PROSTH DEV/GRFT, INIT (6) Elevated troponin Assessment/Plan: MAYBE DEMAND TEL FOLLOW CE CARDIO Code(s): R79.89 - OTHER SPECIFIED ABNORMAL FINDINGS OF BLOOD CHEMISTRY (7) Lung mass Assessment/Plan: PULM ON CASE IV ABX Code(s): R91.8 - OTHER NONSPECIFIC ABNORMAL FINDING OF LUNG FIELD (8) Pneumonia Assessment/Plan: IV ABX Code(s): J18.9 - PNEUMONIA, UNSPECIFIED ORGANISM
[2016-05-07] MEDS: ARFORMOTEROL TARTRATE 15 MCG/2 ML VIAL NEB SCH ×2 (10:00→23:15)
[2016-05-07] MEDS: AZITHROMYCIN IVPB 500 MG/250 ML D5W PRE-DOCKED IVPB SCH (10:10)
[2016-05-07] MEDS: cefTRIAXone 1 GM/50 ML BAG (PRE-DOCKED) IVPB SCH (10:11)
[2016-05-07] MEDS: TIOTROPIUM BROMIDE 18 MCG/INH (DEVICE W/ 5 CAPSULES) IH SCH (10:17)
[2016-05-07] MEDS: LISINOPRIL 5 MG TABLET (FP) PO SCH (10:18)
[2016-05-07] MEDS: HEPARIN NA (PORCINE) 5,000 UNITS/ML 1ML VIAL SQ SCH ×2 (10:18→22:16)
[2016-05-07] MEDS: ASPIRIN 81 MG CHEWABLE TABLETS PO SCH (10:18)
[2016-05-07] MEDS: FUROSEMIDE 40 MG TABLET (FP) PO SCH (10:18)
[2016-05-07] MEDS: CARVEDILOL 25 MG TABLET (FP) PO SCH ×2 (10:18→22:16)
--- NOTE | 2016-05-07 10:41 | PN ---
Progress Note, Physician History of Present Illness: pulmonary alert,feeling better,les congested - Current Medication List Current Medications: Active Medications Acetaminophen (Tylenol -) 650 mg PO Q4H PRN PRN Reason: FEVER OR PAIN Albuterol Sulfate (Ventolin 0.083% Nebulizer Soln -) 1 amp NEB Q4H PRN PRN Reason: SHORT OF BREATH/WHEEZING Last Admin: 05/06/16 11:40 Dose: 1 amp Arformoterol Tartrate (Brovana (Restricted To Pulmonology/Resp) -) 1 amp NEB BID COUNTS INCLUDE 234 BEDS AT [facility] Last Admin: 05/06/16 22:25 Dose: 1 amp Aspirin (Asa -) 81 mg PO DAILY COUNTS INCLUDE 234 BEDS AT [facility] Last Admin: 05/07/16 10:18 Dose: 81 mg Atorvastatin Calcium (Lipitor -) 40 mg PO HS COUNTS INCLUDE 234 BEDS AT THE [facility] Last Admin: 05/06/16 21:32 Dose: 40 mg Azithromycin (Zithromax 500mg Ivpb (Pre-Docked)) 500 mg IVPB DAILY COUNTS INCLUDE 234 BEDS AT THE [facility] Last Admin: 05/07/16 10:10 Dose: 500 mg Carvedilol (Coreg -) 12.5 mg PO BID COUNTS INCLUDE 234 BEDS AT [facility] Last Admin: 05/07/16 10:18 Dose: 12.5 mg Ceftriaxone Sodium (Rocephin 1gm Ivpb (Pre-Docked)) 1 gm IVPB DAILY COUNTS INCLUDE 234 BEDS AT THE [facility] Last Admin: 05/07/16 10:11 Dose: 1 gm Furosemide (Lasix -) 40 mg PO DAILY COUNTS INCLUDE 234 BEDS AT [facility] Last Admin: 05/07/16 10:18 Dose: 40 mg Glipizide (Glucotrol -) 5 mg PO DAILY@0700 COUNTS INCLUDE 234 BEDS AT [facility] Last Admin: 05/07/16 06:04 Dose: Not Given Heparin Sodium (Porcine) (Heparin -) 5,000 unit SQ BID COUNTS INCLUDE 234 BEDS AT [facility] Last Admin: 05/07/16 10:18 Dose: 5,000 unit Lisinopril (Prinivil) 2.5 mg PO DAILY COUNTS INCLUDE 234 BEDS AT [facility] Last Admin: 05/07/16 10:18 Dose: 2.5 mg Methylprednisolone Sodium Succinate (Solu-Medrol -) 40 mg IVPB Q6H-IV COUNTS INCLUDE 234 BEDS AT [facility] Last Admin: 05/07/16 10:18 Dose: 40 mg Tiotropium [place] (Spiriva -) 1 puff IH DAILY COUNTS INCLUDE 234 BEDS AT [facility] Last Admin: 05/07/16 10:17 Dose: 1 inh - Objective Vital Signs: Vital Signs Temperature 98.2 F 05/07/16 09:00 Pulse Rate 76 05/07/16 09:00 Respiratory Rate 14 05/07/16 09:00 Blood Pressure 110/74 05/07/16 09:00 O2 Sat by Pulse Oximetry (%) 95 05/06/16 21:00 Constitutional: Yes: Well Nourished, Calm Eyes: Yes: WNL HENT: Yes: WNL Neck: Yes: WNL Cardiovascular: Yes: Regular Rate and Rhythm, S1, S2 Respiratory: Yes: Wheezes (few wheezes) Gastrointestinal: Yes: Normal Bowel Sounds, Soft Extremities: Yes: WNL Edema: Yes Problem List - Problems (1) Elevated troponin Code(s): R79.89 - OTHER SPECIFIED ABNORMAL FINDINGS OF BLOOD CHEMISTRY (2) Fever Code(s): R50.9 - FEVER, UNSPECIFIED (3) Systemic inflammatory response syndrome (SIRS) Code(s): R65.10 - SIRS OF NON-INFECTIOUS ORIGIN W/O ACUTE ORGAN DYSFUNCTION (4) CAD (coronary artery disease) Code(s): I25.10 - ATHSCL HEART DISEASE OF [place] CORONARY ARTERY W/O ANG PCTRS (5) Chronic systolic CHF (congestive heart failure) Code(s): I50.22 - CHRONIC SYSTOLIC (CONGESTIVE) HEART FAILURE (6) Diabetes mellitus Code(s): E11.9 - TYPE 2 DIABETES MELLITUS WITHOUT COMPLICATIONS (7) Hyperlipidemia Code(s): E78.5 - HYPERLIPIDEMIA, UNSPECIFIED (8) Hypertension Code(s): I10 - ESSENTIAL (PRIMARY) HYPERTENSION (9) ICD (implantable cardioverter-defibrillator) malfunction Code(s): T82.9XXA - UNSP COMP OF CARDIAC AND VASCULAR PROSTH DEV/GRFT, INIT (10) Pneumonia Code(s): J18.9 - PNEUMONIA, UNSPECIFIED ORGANISM (11) DVT prophylaxis Code(s): [id number] - (12) Hx of CABG Code(s): Z95.1 - PRESENCE OF AORTOCORONARY BYPASS GRAFT (13) Bronchospasm, acute Code(s): J98.01 - ACUTE BRONCHOSPASM Assessment/Plan IMP RLL CONSOLIDATION LIKELY PNEUMONIA, CANNOT R/O MALIGNANCY BRONCHOSPASM improving MEDIASTINAL ADENOPATHY LIKELY REACTIVE ASHD S/P CABG H/O CHF HTN DM H/O SMOKING PLAN IV ANTIBIOTICS CONT IV STEROIDS INHALED BRONCHODILATORS SUPPLEMENTAL O2 F/U CHEST CT 4-6 WKS TO DOCUMENT RESOLUTION OF INFILTRATE,IF NO IMPROVEMENT WILL NEED BX TO R/O MALIGNANCY Problem List - Problems (1) Elevated troponin Code(s): R79.89 - OTHER SPECIFIED ABNORMAL FINDINGS OF BLOOD CHEMISTRY (2) Fever Code(s): R50.9 - FEVER, UNSPECIFIED (3) Systemic inflammatory response syndrome (SIRS) Code(s): R65.10 - SIRS OF NON-INFECTIOUS ORIGIN W/O ACUTE ORGAN DYSFUNCTION (4) CAD (coronary artery disease) Code(s): I25.10 - ATHSCL HEART DISEASE OF [place] CORONARY ARTERY W/O ANG PCTRS (5) Chronic systolic CHF (congestive heart failure) Code(s): I50.22 - CHRONIC SYSTOLIC (CONGESTIVE) HEART FAILURE (6) Diabetes mellitus Code(s): E11.9 - TYPE 2 DIABETES MELLITUS WITHOUT COMPLICATIONS (7) Hyperlipidemia Code(s): E78.5 - HYPERLIPIDEMIA, UNSPECIFIED (8) Hypertension Code(s): I10 - ESSENTIAL (PRIMARY) HYPERTENSION (9) ICD (implantable cardioverter-defibrillator) malfunction Code(s): T82.9XXA - UNSP COMP OF CARDIAC AND VASCULAR PROSTH DEV/GRFT, INIT (10) Pneumonia Code(s): J18.9 - PNEUMONIA, UNSPECIFIED ORGANISM (11) DVT prophylaxis Code(s): [id number] - (12) Hx of CABG Code(s): Z95.1 - PRESENCE OF AORTOCORONARY BYPASS GRAFT (13) Bronchospasm, acute Code(s): J98.01 - ACUTE BRONCHOSPASM
--- NOTE | 2016-05-07 11:41 | PN ---
Progress Note, Physician History of Present Illness: The patient is a 65 year old male with past medical history VT, CABG 2002, subsequent coronary stents, systoic CHF; s/p ICD, hypertension, diabetes, hyperlipidemia, who presents to the emergency department with cough, fever, and sore throat for the last 3 days. The patient states his symptoms have been getting worse so he went to see his PMD earlier today who referred him to the ED. He reports a fever, Tmax 102.4 F with associated chills. The patient has a productive cough with white sputum. The patient denies any chest pain or shortness of breath. He denies associated chills. The patient denies any abdominal pain, nausea, or vomiting. He denies any recent sick contacts. The patient is a former smoker and quit in 2005. - Current Medication List Current Medications: Active Medications Acetaminophen (Tylenol -) 650 mg PO Q4H PRN PRN Reason: FEVER OR PAIN Albuterol Sulfate (Ventolin 0.083% Nebulizer Soln -) 1 amp NEB Q4H PRN PRN Reason: SHORT OF BREATH/WHEEZING Last Admin: 05/06/16 11:40 Dose: 1 amp Arformoterol Tartrate (Brovana (Restricted To Pulmonology/Resp) -) 1 amp NEB BID [facility] Last Admin: 05/06/16 22:25 Dose: 1 amp Aspirin (Asa -) 81 mg PO DAILY [facility] Last Admin: 05/07/16 10:18 Dose: 81 mg Atorvastatin Calcium (Lipitor -) 40 mg PO HS [facility] Last Admin: 05/06/16 21:32 Dose: 40 mg Azithromycin (Zithromax 500mg Ivpb (Pre-Docked)) 500 mg IVPB DAILY [facility] Last Admin: 05/07/16 10:10 Dose: 500 mg Carvedilol (Coreg -) 12.5 mg PO BID [facility] Last Admin: 05/07/16 10:18 Dose: 12.5 mg Ceftriaxone Sodium (Rocephin 1gm Ivpb (Pre-Docked)) 1 gm IVPB DAILY [facility] Last Admin: 05/07/16 10:11 Dose: 1 gm Furosemide (Lasix -) 40 mg PO DAILY [facility] Last Admin: 05/07/16 10:18 Dose: 40 mg Glipizide (Glucotrol -) 5 mg PO DAILY@0700 [facility] Last Admin: 05/07/16 06:04 Dose: Not Given Heparin Sodium (Porcine) (Heparin -) 5,000 unit SQ BID [facility] Last Admin: 05/07/16 10:18 Dose: 5,000 unit Lisinopril (Prinivil) 2.5 mg PO DAILY [facility] Last Admin: 05/07/16 10:18 Dose: 2.5 mg Methylprednisolone Sodium Succinate (Solu-Medrol -) 40 mg IVPB Q6H-IV [facility] Last Admin: 05/07/16 10:18 Dose: 40 mg Tiotropium [place] (Spiriva -) 1 puff IH DAILY [facility] Last Admin: 05/07/16 10:17 Dose: 1 inh - Objective Vital Signs: Vital Signs Temperature 98.2 F 05/07/16 09:00 Pulse Rate 76 05/07/16 09:00 Respiratory Rate 14 05/07/16 09:00 Blood Pressure 110/74 05/07/16 09:00 O2 Sat by Pulse Oximetry (%) 96 05/07/16 09:00 Eyes: Yes: WNL, Conjunctiva Clear, EOM Intact HENT: Yes: WNL, Atraumatic, Normocephalic Neck: Yes: WNL, Supple, Trachea Midline Cardiovascular: Yes: WNL, Regular Rate and Rhythm Respiratory: Yes: WNL, Regular, CTA Bilaterally Gastrointestinal: Yes: WNL, Normal Bowel Sounds Genitourinary: Yes: WNL Musculoskeletal: Yes: WNL Extremities: Yes: WNL Edema: No Integumentary: Yes: WNL Neurological: Yes: WNL, Alert, Oriented ...Motor Strength: WNL Psychiatric: Yes: WNL Labs: CBC, BMP 05/06/16 05:35 05/06/16 05:35 Assessment/Plan - Problems (1) Bronchospasm, acute Code(s): J98.01 - ACUTE BRONCHOSPASM (2) Hx of CABG Assessment/Plan: On ASA 81 mg/day. Continue carvedilol; add lisinopril (and discontinue amlodipine); start spironolactone if BUN/Cr and electrolytes allow. Code(s): Z95.1 - PRESENCE OF AORTOCORONARY BYPASS GRAFT (3) Pneumonia Assessment/Plan: RtLL large consolidation; r/o malignancy. F/u this lesion while pneumonia and CHF are being treated. (Quit smoking in 2005). Code(s): J18.9 - PNEUMONIA, UNSPECIFIED ORGANISM (4) CAD (coronary artery disease) Code(s): I25.10 - ATHSCL HEART DISEASE OF [place] CORONARY ARTERY W/O ANG PCTRS (5) Chronic systolic CHF (congestive heart failure) Assessment/Plan: On carvedilol. Discontinue amlodipine. Start lisinopril; f/u BP, BUN/Cr, and electrolytes. Start spironolactone. F/u ECHO. F/u TSH. Code(s): I50.22 - CHRONIC SYSTOLIC (CONGESTIVE) HEART FAILURE (6) Diabetes mellitus Code(s): E11.9 - TYPE 2 DIABETES MELLITUS WITHOUT COMPLICATIONS (7) Hyperlipidemia Assessment/Plan: Total cholesterol <100mg/dL; on atorvastatin 40 mg daily. Code(s): E78.5 - HYPERLIPIDEMIA, UNSPECIFIED (8) Hypertension Code(s): I10 - ESSENTIAL (PRIMARY) HYPERTENSION (9) ICD (implantable cardioverter-defibrillator) malfunction Assessment/Plan: ICD interrogated recently in office; no events. Code(s): T82.9XXA - UNSP COMP OF CARDIAC AND VASCULAR PROSTH DEV/GRFT, INIT (10) Lung mass Assessment/Plan: F/u with pulmonology. F/u lesion while CHF and pneumonia are treated. Code(s): R91.8 - OTHER NONSPECIFIC ABNORMAL FINDING OF LUNG FIELD (11) Elevated troponin Assessment/Plan: Mild elevation in TNI (maximum 0.19) with normal CK; no chest pain or dyspnea. Doubt ischemic etiology of this mild increase; sepsis and CHF may contribute to the elevation. EKG: ventricular pacing. Code(s): R79.89 - OTHER SPECIFIED ABNORMAL FINDINGS OF BLOOD CHEMISTRY
--- NOTE | 2016-05-07 16:32 | PN ---
Progress Note, Physician History of Present Illness: Awake, alert Seated in bed Appears comfortable on room air Afebrile - Current Medication List Current Medications: Active Medications Acetaminophen (Tylenol -) 650 mg PO Q4H PRN PRN Reason: FEVER OR PAIN Albuterol Sulfate (Ventolin 0.083% Nebulizer Soln -) 1 amp NEB Q4H PRN PRN Reason: SHORT OF BREATH/WHEEZING Last Admin: 05/06/16 11:40 Dose: 1 amp Arformoterol Tartrate (Brovana (Restricted To Pulmonology/Resp) -) 1 amp NEB BID [facility] Last Admin: 05/07/16 10:00 Dose: 1 amp Aspirin (Asa -) 81 mg PO DAILY [facility] Last Admin: 05/07/16 10:18 Dose: 81 mg Atorvastatin Calcium (Lipitor -) 40 mg PO HS [facility] Last Admin: 05/06/16 21:32 Dose: 40 mg Azithromycin (Zithromax 500mg Ivpb (Pre-Docked)) 500 mg IVPB DAILY [facility] Last Admin: 05/07/16 10:10 Dose: 500 mg Carvedilol (Coreg -) 12.5 mg PO BID [facility] Last Admin: 05/07/16 10:18 Dose: 12.5 mg Ceftriaxone Sodium (Rocephin 1gm Ivpb (Pre-Docked)) 1 gm IVPB DAILY [facility] Last Admin: 05/07/16 10:11 Dose: 1 gm Furosemide (Lasix -) 40 mg PO DAILY [facility] Last Admin: 05/07/16 10:18 Dose: 40 mg Glipizide (Glucotrol -) 5 mg PO DAILY@0700 [facility] Last Admin: 05/07/16 06:04 Dose: Not Given Heparin Sodium (Porcine) (Heparin -) 5,000 unit SQ BID [facility] Last Admin: 05/07/16 10:18 Dose: 5,000 unit Lisinopril (Prinivil) 2.5 mg PO DAILY [facility] Last Admin: 05/07/16 10:18 Dose: 2.5 mg Methylprednisolone Sodium Succinate (Solu-Medrol -) 40 mg IVPB Q6H-IV [facility] Last Admin: 05/07/16 15:58 Dose: 40 mg Tiotropium [place] (Spiriva -) 1 puff IH DAILY [facility] Last Admin: 05/07/16 10:17 Dose: 1 inh - Objective Vital Signs: Vital Signs Temperature 98.0 F 05/07/16 15:32 Pulse Rate 72 05/07/16 15:32 Respiratory Rate 20 05/07/16 15:32 Blood Pressure 110/69 05/07/16 15:32 O2 Sat by Pulse Oximetry (%) 96 05/07/16 09:00 Constitutional: Yes: No Distress Eyes: Yes: Conjunctiva Clear Cardiovascular: Yes: Regular Rate and Rhythm, S1, S2 Respiratory: Yes: Rhonchi, Wheezes Gastrointestinal: Yes: Normal Bowel Sounds, Soft, Abdomen, Obese. No: Tenderness Labs: CBC, BMP 05/06/16 05:35 05/06/16 05:35 Assessment/Plan Pneumonia Possible underlying lung mass Possible sepsis secondary to pneumonia CAD Await c/s Continue zithromax/ ceftriaxone
[2016-05-07] MEDS: ATORVASTATIN CA 40 MG TABLET (FP) PO SCH (22:16)
[2016-05-08] MEDS: methylPREDNISolone NA SUCC 40 MG/1 ML VIAL IVPB SCH ×3 (03:40→17:16)
[2016-05-08] MEDS: glipiZIDE 5 MG TABLET (FP) PO SCH (06:33)
[2016-05-08] MEDS: FUROSEMIDE 40 MG TABLET (FP) PO SCH (09:37)
[2016-05-08] MEDS: LISINOPRIL 5 MG TABLET (FP) PO SCH (09:37)
[2016-05-08] MEDS: CARVEDILOL 25 MG TABLET (FP) PO SCH ×2 (09:37→21:06)
[2016-05-08] MEDS: HEPARIN NA (PORCINE) 5,000 UNITS/ML 1ML VIAL SQ SCH ×2 (09:38→21:07)
[2016-05-08] MEDS: ASPIRIN 81 MG CHEWABLE TABLETS PO SCH (09:38)
[2016-05-08] MEDS: AZITHROMYCIN IVPB 500 MG/250 ML D5W PRE-DOCKED IVPB SCH (09:39)
[2016-05-08] MEDS: TIOTROPIUM BROMIDE 18 MCG/INH (DEVICE W/ 5 CAPSULES) IH SCH (09:39)
[2016-05-08] MEDS: cefTRIAXone 1 GM/50 ML BAG (PRE-DOCKED) IVPB SCH (09:39)
[2016-05-08] MEDS: ARFORMOTEROL TARTRATE 15 MCG/2 ML VIAL NEB SCH ×2 (10:21→22:50)
--- NOTE | 2016-05-08 10:29 | PN ---
Progress Note, Physician History of Present Illness: PULMONARY ALERT,FEELING BETTER,LESS CONGESTED. - Current Medication List Current Medications: Active Medications Acetaminophen (Tylenol -) 650 mg PO Q4H PRN PRN Reason: FEVER OR PAIN Albuterol Sulfate (Ventolin 0.083% Nebulizer Soln -) 1 amp NEB Q4H PRN PRN Reason: SHORT OF BREATH/WHEEZING Last Admin: 05/06/16 11:40 Dose: 1 amp Arformoterol Tartrate (Brovana (Restricted To Pulmonology/Resp) -) 1 amp NEB BID [facility] Last Admin: 05/08/16 10:21 Dose: 1 amp Aspirin (Asa -) 81 mg PO DAILY [facility] Last Admin: 05/08/16 09:38 Dose: 81 mg Atorvastatin Calcium (Lipitor -) 40 mg PO HS [facility] Last Admin: 05/07/16 22:16 Dose: 40 mg Azithromycin (Zithromax 500mg Ivpb (Pre-Docked)) 500 mg IVPB DAILY [facility] Last Admin: 05/08/16 09:39 Dose: 500 mg Carvedilol (Coreg -) 12.5 mg PO BID [facility] Last Admin: 05/08/16 09:37 Dose: 12.5 mg Ceftriaxone Sodium (Rocephin 1gm Ivpb (Pre-Docked)) 1 gm IVPB DAILY [facility] Last Admin: 05/08/16 09:39 Dose: 1 gm Furosemide (Lasix -) 40 mg PO DAILY [facility] Last Admin: 05/08/16 09:37 Dose: 40 mg Glipizide (Glucotrol -) 5 mg PO DAILY@0700 [facility] Last Admin: 05/08/16 06:33 Dose: 5 mg Heparin Sodium (Porcine) (Heparin -) 5,000 unit SQ BID [facility] Last Admin: 05/08/16 09:38 Dose: 5,000 unit Lisinopril (Prinivil) 2.5 mg PO DAILY [facility] Last Admin: 05/08/16 09:37 Dose: 2.5 mg Methylprednisolone Sodium Succinate (Solu-Medrol -) 40 mg IVPB Q6H-IV [facility] Last Admin: 05/08/16 09:38 Dose: 40 mg Tiotropium [place] (Spiriva -) 1 puff IH DAILY [facility] Last Admin: 05/08/16 09:39 Dose: 1 inh - Objective Vital Signs: Vital Signs Temperature 97.6 F 05/08/16 02:00 Pulse Rate 73 05/08/16 06:00 Respiratory Rate 20 05/08/16 06:00 Blood Pressure 106/68 05/08/16 06:00 O2 Sat by Pulse Oximetry (%) 94 L 05/07/16 21:00 Constitutional: Yes: Well Nourished, Calm Eyes: Yes: WNL HENT: Yes: WNL Neck: Yes: WNL Cardiovascular: Yes: Regular Rate and Rhythm, S1, S2 Respiratory: Yes: Rhonchi, Wheezes (GULSHAN WHEEZES AND RHONCHI) Gastrointestinal: Yes: Normal Bowel Sounds, Soft Extremities: Yes: WNL Edema: No Labs: CBC, BMP 05/06/16 05:35 05/06/16 05:35 - ....Imaging Other: Report Reviewed, Image Reviewed (ECHO SEVERE LV DYSFUNCTION) Problem List - Problems (1) Elevated troponin Code(s): R79.89 - OTHER SPECIFIED ABNORMAL FINDINGS OF BLOOD CHEMISTRY (2) Fever Code(s): R50.9 - FEVER, UNSPECIFIED (3) Systemic inflammatory response syndrome (SIRS) Code(s): R65.10 - SIRS OF NON-INFECTIOUS ORIGIN W/O ACUTE ORGAN DYSFUNCTION (4) CAD (coronary artery disease) Code(s): I25.10 - ATHSCL HEART DISEASE OF [place] CORONARY ARTERY W/O ANG PCTRS (5) Chronic systolic CHF (congestive heart failure) Code(s): I50.22 - CHRONIC SYSTOLIC (CONGESTIVE) HEART FAILURE (6) Diabetes mellitus Code(s): E11.9 - TYPE 2 DIABETES MELLITUS WITHOUT COMPLICATIONS (7) Hyperlipidemia Code(s): E78.5 - HYPERLIPIDEMIA, UNSPECIFIED (8) Hypertension Code(s): I10 - ESSENTIAL (PRIMARY) HYPERTENSION (9) ICD (implantable cardioverter-defibrillator) malfunction Code(s): T82.9XXA - UNSP COMP OF CARDIAC AND VASCULAR PROSTH DEV/GRFT, INIT (10) Pneumonia Code(s): J18.9 - PNEUMONIA, UNSPECIFIED ORGANISM (11) DVT prophylaxis Code(s): [id number] - (12) Hx of CABG Code(s): Z95.1 - PRESENCE OF AORTOCORONARY BYPASS GRAFT (13) Bronchospasm, acute Code(s): J98.01 - ACUTE BRONCHOSPASM Assessment/Plan IMP RLL CONSOLIDATION LIKELY PNEUMONIA, CANNOT R/O MALIGNANCY BRONCHOSPASM improving MEDIASTINAL ADENOPATHY LIKELY REACTIVE ASHD S/P CABG CHF HTN DM H/O SMOKING PLAN IV ANTIBIOTICS IV STEROIDS INHALED BRONCHODILATORS SUPPLEMENTAL O2 F/U CHEST CT 4-6 WKS TO DOCUMENT RESOLUTION OF INFILTRATE,IF NO IMPROVEMENT WILL NEED BX TO R/O MALIGNANCY Problem List - Problems (1) Elevated troponin Code(s): R79.89 - OTHER SPECIFIED ABNORMAL FINDINGS OF BLOOD CHEMISTRY (2) Fever Code(s): R50.9 - FEVER, UNSPECIFIED (3) Systemic inflammatory response syndrome (SIRS) Code(s): R65.10 - SIRS OF NON-INFECTIOUS ORIGIN W/O ACUTE ORGAN DYSFUNCTION (4) CAD (coronary artery disease) Code(s): I25.10 - ATHSCL HEART DISEASE OF [place] CORONARY ARTERY W/O ANG PCTRS (5) Chronic systolic CHF (congestive heart failure) Code(s): I50.22 - CHRONIC SYSTOLIC (CONGESTIVE) HEART FAILURE (6) Diabetes mellitus Code(s): E11.9 - TYPE 2 DIABETES MELLITUS WITHOUT COMPLICATIONS (7) Hyperlipidemia Code(s): E78.5 - HYPERLIPIDEMIA, UNSPECIFIED (8) Hypertension Code(s): I10 - ESSENTIAL (PRIMARY) HYPERTENSION (9) ICD (implantable cardioverter-defibrillator) malfunction Code(s): T82.9XXA - UNSP COMP OF CARDIAC AND VASCULAR PROSTH DEV/GRFT, INIT (10) Pneumonia Code(s): J18.9 - PNEUMONIA, UNSPECIFIED ORGANISM (11) DVT prophylaxis Code(s): [id number] - (12) Hx of CABG Code(s): Z95.1 - PRESENCE OF AORTOCORONARY BYPASS GRAFT (13) Bronchospasm, acute Code(s): J98.01 - ACUTE BRONCHOSPASM
--- NOTE | 2016-05-08 11:03 | PN ---
Progress Note, Physician History of Present Illness: seen and examined today in nad. no overnight events. no new complaints. - Current Medication List Current Medications: Active Medications Acetaminophen (Tylenol -) 650 mg PO Q4H PRN PRN Reason: FEVER OR PAIN Albuterol Sulfate (Ventolin 0.083% Nebulizer Soln -) 1 amp NEB Q4H PRN PRN Reason: SHORT OF BREATH/WHEEZING Last Admin: 05/06/16 11:40 Dose: 1 amp Arformoterol Tartrate (Brovana (Restricted To Pulmonology/Resp) -) 1 amp NEB BID [facility] Last Admin: 05/08/16 10:21 Dose: 1 amp Aspirin (Asa -) 81 mg PO DAILY [facility] Last Admin: 05/08/16 09:38 Dose: 81 mg Atorvastatin [place] (Lipitor -) 40 mg PO HS [facility] Last Admin: 05/07/16 22:16 Dose: 40 mg Azithromycin (Zithromax 500mg Ivpb (Pre-Docked)) 500 mg IVPB DAILY [facility] Last Admin: 05/08/16 09:39 Dose: 500 mg Carvedilol (Coreg -) 12.5 mg PO BID [facility] Last Admin: 05/08/16 09:37 Dose: 12.5 mg Ceftriaxone Sodium (Rocephin 1gm Ivpb (Pre-Docked)) 1 gm IVPB DAILY [facility] Last Admin: 05/08/16 09:39 Dose: 1 gm Furosemide (Lasix -) 40 mg PO DAILY [facility] Last Admin: 05/08/16 09:37 Dose: 40 mg Glipizide (Glucotrol -) 5 mg PO DAILY@0700 [facility] Last Admin: 05/08/16 06:33 Dose: 5 mg Heparin Sodium (Porcine) (Heparin -) 5,000 unit SQ BID [facility] Last Admin: 05/08/16 09:38 Dose: 5,000 unit Lisinopril (Prinivil) 2.5 mg PO DAILY [facility] Last Admin: 05/08/16 09:37 Dose: 2.5 mg Methylprednisolone Sodium Succinate (Solu-Medrol -) 40 mg IVPB Q8H-IV [facility] Tiotropium [place] (Spiriva -) 1 puff IH DAILY [facility] Last Admin: 05/08/16 09:39 Dose: 1 inh - Objective Vital Signs: Vital Signs Temperature 97.6 F 05/08/16 02:00 Pulse Rate 73 05/08/16 06:00 Respiratory Rate 20 05/08/16 06:00 Blood Pressure 106/68 05/08/16 06:00 O2 Sat by Pulse Oximetry (%) 94 L 05/07/16 21:00 Constitutional: Yes: Well Nourished, No Distress, Calm Eyes: Yes: WNL, Conjunctiva Clear, EOM Intact, PERRL HENT: Yes: WNL, Atraumatic, Normocephalic Neck: Yes: WNL, Supple, Trachea Midline Cardiovascular: Yes: Regular Rate and Rhythm, S1, S2. No: Bradycardia, Tachycardia, Pulse Irregular, Bruit, JVD, Gallop, Murmur, Rub, S3, S4, Varicosities Respiratory: Yes: Regular, Wheezes. No: Rales, Rhonchi, SOB Gastrointestinal: Yes: WNL, Normal Bowel Sounds, Soft. No: Distention, Tenderness Musculoskeletal: Yes: WNL Extremities: Yes: WNL Edema: No Peripheral Pulses WNL: Yes Peripheral Pulses: Left Doralis Pedis: 2+, Right Dorsalis Pedis: 2+ Integumentary: Yes: WNL Neurological: Yes: WNL, Alert, Oriented, Cran Nerves II-XII Intact ...Motor Strength: WNL Psychiatric: Yes: WNL, Alert, Oriented Labs: CBC, BMP 05/06/16 05:35 05/06/16 05:35 - ....Imaging Chest X-ray: Report Reviewed, Image Reviewed EKG: Report Reviewed, Image Reviewed Other: Report Reviewed, Image Reviewed (tele-NSR, Vpaced, PVCs) Problem List - Problems (1) Bronchospasm, acute Code(s): J98.01 - ACUTE BRONCHOSPASM (2) Elevated troponin Code(s): R79.89 - OTHER SPECIFIED ABNORMAL FINDINGS OF BLOOD CHEMISTRY (3) Hx of CABG Code(s): Z95.1 - PRESENCE OF AORTOCORONARY BYPASS GRAFT (4) Lung mass Code(s): R91.8 - OTHER NONSPECIFIC ABNORMAL FINDING OF LUNG FIELD (5) Pneumonia Code(s): J18.9 - PNEUMONIA, UNSPECIFIED ORGANISM (6) Systemic inflammatory response syndrome (SIRS) Code(s): R65.10 - SIRS OF NON-INFECTIOUS ORIGIN W/O ACUTE ORGAN DYSFUNCTION (7) CAD (coronary artery disease) Code(s): I25.10 - ATHSCL HEART DISEASE OF [place] CORONARY ARTERY W/O ANG PCTRS (8) Chronic systolic CHF (congestive heart failure) Code(s): I50.22 - CHRONIC SYSTOLIC (CONGESTIVE) HEART FAILURE (9) Diabetes mellitus Code(s): E11.9 - TYPE 2 DIABETES MELLITUS WITHOUT COMPLICATIONS (10) Hyperlipidemia Code(s): E78.5 - HYPERLIPIDEMIA, UNSPECIFIED (11) Hypertension Code(s): I10 - ESSENTIAL (PRIMARY) HYPERTENSION (12) ICD (implantable cardioverter-defibrillator) malfunction Code(s): T82.9XXA - UNSP COMP OF CARDIAC AND VASCULAR PROSTH DEV/GRFT, INIT Assessment/Plan 75 year old man with a history of HTN, HLD, DMII, CAD h/o SC s/p CABG 2002, stents, Chronic systolic CHF s/p ICD admitted with cough, fever, sore throat. Cough-wheezing on exam, likely AE COPD/bronchitis -euvolemic, not clinically in acute on chronic CHF -cont po Lasix, asa, lipitor, coreg, lisinopril -cont tx of pulm process -no arrhythmias on tele, can dc tele CAD-h/o SC, CABG, stents -stable, mildly elevated troponin with normal CK, unlikely type I SC -cont ASA and statin Chronic systolic CHF-s/p ICD -euvolemic -cont current medical regimen, plan is to start spironolactone if bun/creat/K/ BP stable HTN-low normal -cont current meds for now HLD -cont statin
--- NOTE | 2016-05-08 12:36 | PN ---
Progress Note, Physician History of Present Illness: Awake, alert No complaints Denies chest pain/ dyspnea/ cough No c/o fever/ chills Breathing comfortably on room air - Current Medication List Current Medications: Active Medications Acetaminophen (Tylenol -) 650 mg PO Q4H PRN PRN Reason: FEVER OR PAIN Albuterol Sulfate (Ventolin 0.083% Nebulizer Soln -) 1 amp NEB Q4H PRN PRN Reason: SHORT OF BREATH/WHEEZING Last Admin: 05/06/16 11:40 Dose: 1 amp Arformoterol Tartrate (Brovana (Restricted To Pulmonology/Resp) -) 1 amp NEB BID [facility] Last Admin: 05/08/16 10:21 Dose: 1 amp Aspirin (Asa -) 81 mg PO DAILY [facility] Last Admin: 05/08/16 09:38 Dose: 81 mg Atorvastatin Calcium (Lipitor -) 40 mg PO HS [facility] Last Admin: 05/07/16 22:16 Dose: 40 mg Azithromycin (Zithromax 500mg Ivpb (Pre-Docked)) 500 mg IVPB DAILY [facility] Last Admin: 05/08/16 09:39 Dose: 500 mg Carvedilol (Coreg -) 12.5 mg PO BID [facility] Last Admin: 05/08/16 09:37 Dose: 12.5 mg Ceftriaxone Sodium (Rocephin 1gm Ivpb (Pre-Docked)) 1 gm IVPB DAILY [facility] Last Admin: 05/08/16 09:39 Dose: 1 gm Furosemide (Lasix -) 40 mg PO DAILY [facility] Last Admin: 05/08/16 09:37 Dose: 40 mg Glipizide (Glucotrol -) 5 mg PO DAILY@0700 [facility] Last Admin: 05/08/16 06:33 Dose: 5 mg Heparin Sodium (Porcine) (Heparin -) 5,000 unit SQ BID [facility] Last Admin: 05/08/16 09:38 Dose: 5,000 unit Lisinopril (Prinivil) 2.5 mg PO DAILY [facility] Last Admin: 05/08/16 09:37 Dose: 2.5 mg Methylprednisolone Sodium Succinate (Solu-Medrol -) 40 mg IVPB Q8H-IV [facility] Tiotropium Nov[place] (Spiriva -) 1 puff IH DAILY [facility] Last Admin: 05/08/16 09:39 Dose: 1 inh - Objective Vital Signs: Vital Signs Temperature 97.6 F 05/08/16 02:00 Pulse Rate 73 05/08/16 06:00 Respiratory Rate 20 05/08/16 06:00 Blood Pressure 106/68 05/08/16 06:00 O2 Sat by Pulse Oximetry (%) 94 L 05/07/16 21:00 Constitutional: Yes: No Distress Eyes: Yes: Conjunctiva Clear Cardiovascular: Yes: Regular Rate and Rhythm, S1, S2 Respiratory: Yes: Rhonchi, Wheezes Gastrointestinal: Yes: Normal Bowel Sounds, Soft Edema: LLE: Trace, RLE: Trace Labs: CBC, BMP 05/06/16 05:35 05/06/16 05:35 Assessment/Plan Pneumonia Possible underlying lung mass Possible sepsis secondary to pneumonia CAD Continue zithromax/ ceftriaxone
--- NOTE | 2016-05-08 15:17 | PN ---
Progress Note, Physician Chief Complaint: THIS IS MY FIRST MEDICAL ENCOUNTER WITH THIS PATIENT EVENTS AND CHART REVIEWED AUDIBLE WHEEZES + APPETITE +BM - Current Medication List Current Medications: Active Medications Acetaminophen (Tylenol -) 650 mg PO Q4H PRN PRN Reason: FEVER OR PAIN Albuterol Sulfate (Ventolin 0.083% Nebulizer Soln -) 1 amp NEB Q4H PRN PRN Reason: SHORT OF BREATH/WHEEZING Last Admin: 05/06/16 11:40 Dose: 1 amp Arformoterol Tartrate (Brovana (Restricted To Pulmonology/Resp) -) 1 amp NEB BID [facility] Last Admin: 05/08/16 10:21 Dose: 1 amp Aspirin (Asa -) 81 mg PO DAILY [facility] Last Admin: 05/08/16 09:38 Dose: 81 mg Atorvastatin Calcium (Lipitor -) 40 mg PO HS [facility] Last Admin: 05/07/16 22:16 Dose: 40 mg Azithromycin (Zithromax 500mg Ivpb (Pre-Docked)) 500 mg IVPB DAILY [facility] Last Admin: 05/08/16 09:39 Dose: 500 mg Carvedilol (Coreg -) 12.5 mg PO BID [facility] Last Admin: 05/08/16 09:37 Dose: 12.5 mg Ceftriaxone Sodium (Rocephin 1gm Ivpb (Pre-Docked)) 1 gm IVPB DAILY [facility] Last Admin: 05/08/16 09:39 Dose: 1 gm Furosemide (Lasix -) 40 mg PO DAILY [facility] Last Admin: 05/08/16 09:37 Dose: 40 mg Glipizide (Glucotrol -) 5 mg PO DAILY@0700 [facility] Last Admin: 05/08/16 06:33 Dose: 5 mg Heparin Sodium (Porcine) (Heparin -) 5,000 unit SQ BID [facility] Last Admin: 05/08/16 09:38 Dose: 5,000 unit Lisinopril (Prinivil) 2.5 mg PO DAILY [facility] Last Admin: 05/08/16 09:37 Dose: 2.5 mg Methylprednisolone Sodium Succinate (Solu-Medrol -) 40 mg IVPB Q8H-IV [facility] Tiotropium [place] (Spiriva -) 1 puff IH DAILY [facility] Last Admin: 05/08/16 09:39 Dose: 1 inh - Objective Vital Signs: Vital Signs Temperature 98 F 05/08/16 14:31 Pulse Rate 70 05/08/16 14:31 Respiratory Rate 20 05/08/16 14:31 Blood Pressure 123/69 05/08/16 14:31 O2 Sat by Pulse Oximetry (%) 94 L 05/07/16 21:00 Constitutional: Yes: Mild Distress Eyes: Yes: WNL HENT: Yes: WNL Neck: Yes: WNL Cardiovascular: Yes: Murmur Respiratory: Yes: On Nasal O2, Rhonchi, SOB Gastrointestinal: Yes: WNL Genitourinary: Yes: WNL Musculoskeletal: Yes: WNL Extremities: Yes: WNL Edema: Yes Peripheral Pulses WNL: Yes Integumentary: Yes: WNL Wound/Incision: Yes: Clean/Dry Neurological: Yes: WNL ...Motor Strength: WNL Psychiatric: Yes: WNL Labs: CBC, BMP 05/06/16 05:35 05/06/16 05:35 Problem List - Problems (1) Bronchospasm, acute Code(s): J98.01 - ACUTE BRONCHOSPASM (2) Elevated troponin Code(s): R79.89 - OTHER SPECIFIED ABNORMAL FINDINGS OF BLOOD CHEMISTRY (3) Fever Code(s): R50.9 - FEVER, UNSPECIFIED (4) Hx of CABG Code(s): Z95.1 - PRESENCE OF AORTOCORONARY BYPASS GRAFT (5) Lung mass Code(s): R91.8 - OTHER NONSPECIFIC ABNORMAL FINDING OF LUNG FIELD (6) Pneumonia Code(s): J18.9 - PNEUMONIA, UNSPECIFIED ORGANISM (7) Chronic systolic CHF (congestive heart failure) Code(s): I50.22 - CHRONIC SYSTOLIC (CONGESTIVE) HEART FAILURE (8) ICD (implantable cardioverter-defibrillator) malfunction Code(s): T82.9XXA - UNSP COMP OF CARDIAC AND VASCULAR PROSTH DEV/GRFT, INIT Assessment/Plan IV ABX FOR PNA DIURESIS WITH LASIX IV DAILY WEIGHT 02 SUPPORT NEBS PULMONARY AND CARDIOLOGY EVAL APPRECIATED REPEAT CT SCAN IN 2-3 MONTHS FOR EVALUATION OF MASS VS INFECTION ICD INTERROGATION DVT PROPHYLAXIS
[2016-05-08] MEDS: ATORVASTATIN CA 40 MG TABLET (FP) PO SCH (21:07)
[2016-05-09] MEDS: methylPREDNISolone NA SUCC 40 MG/1 ML VIAL IVPB SCH ×2 (01:03→10:18)
[2016-05-09] MEDS: glipiZIDE 5 MG TABLET (FP) PO SCH (06:17)
[2016-05-09 07:42] LABS: MCH 28.1 pg (25.7-33.7); MCHC 32.6 g/dl (32.0-35.9); MEAN CELL VOLUME 86.1 fl (80-96); MEAN PLT VOLUME 8.7 fl (7.5-11.1); PLATELET COUNT 260 K/MM3 (134-434); WHITE BLOOD COUNT 13.9 K/mm3 (4.0-10.0)
[2016-05-09 08:25] LABS: ALBUMIN 2.6 g/dl (3.4-5.0); ANION GAP 5 (8-16); BILIRUBIN,TOTAL 0.3 mg/dL (0.2-1.0); CO2 32 mmol/L (21-32); GLUCOSE,RANDOM 181 mg/dL (74-106); SGOT/AST 86 U/L (15-37); SGPT/ALT 187 U/L (12-78); TOT PROT 6.1 g/dl (6.4-8.2)
[2016-05-09 08:26] LABS: ALK PHOS 88 U/L (45-117)
[2016-05-09 10:10] VITALS: PULSE 71
[2016-05-09] MEDS: ARFORMOTEROL TARTRATE 15 MCG/2 ML VIAL NEB SCH (10:10)
[2016-05-09] MEDS: ASPIRIN 81 MG CHEWABLE TABLETS PO SCH (10:18)
[2016-05-09] MEDS: CARVEDILOL 25 MG TABLET (FP) PO SCH (10:18)
[2016-05-09] MEDS: FUROSEMIDE 40 MG TABLET (FP) PO SCH (10:18)
[2016-05-09] MEDS: HEPARIN NA (PORCINE) 5,000 UNITS/ML 1ML VIAL SQ SCH (10:18)
[2016-05-09] MEDS: LISINOPRIL 5 MG TABLET (FP) PO SCH (10:18)
[2016-05-09] MEDS: AZITHROMYCIN IVPB 500 MG/250 ML D5W PRE-DOCKED IVPB SCH (10:18)
[2016-05-09] MEDS: TIOTROPIUM BROMIDE 18 MCG/INH (DEVICE W/ 5 CAPSULES) IH SCH (10:18)
[2016-05-09] MEDS: cefTRIAXone 1 GM/50 ML BAG (PRE-DOCKED) IVPB SCH (10:18)
--- NOTE | 2016-05-09 10:18 | PN ---
Progress Note, Physician History of Present Illness: PULMONARY ALERT,FEELING BETTER,LESS CONGESTED. - Current Medication List Current Medications: Active Medications Acetaminophen (Tylenol -) 650 mg PO Q4H PRN PRN Reason: FEVER OR PAIN Albuterol Sulfate (Ventolin 0.083% Nebulizer Soln -) 1 amp NEB Q4H PRN PRN Reason: SHORT OF BREATH/WHEEZING Last Admin: 05/06/16 11:40 Dose: 1 amp Arformoterol Tartrate (Brovana (Restricted To Pulmonology/Resp) -) 1 amp NEB BID [facility] Last Admin: 05/09/16 10:10 Dose: 1 amp Aspirin (Asa -) 81 mg PO DAILY [facility] Last Admin: 05/08/16 09:38 Dose: 81 mg Atorvastatin Calcium (Lipitor -) 40 mg PO HS [facility] Last Admin: 05/08/16 21:07 Dose: 40 mg Azithromycin (Zithromax 500mg Ivpb (Pre-Docked)) 500 mg IVPB DAILY [facility] Last Admin: 05/08/16 09:39 Dose: 500 mg Carvedilol (Coreg -) 12.5 mg PO BID [facility] Last Admin: 05/08/16 21:06 Dose: 12.5 mg Ceftriaxone Sodium (Rocephin 1gm Ivpb (Pre-Docked)) 1 gm IVPB DAILY [facility] Last Admin: 05/08/16 09:39 Dose: 1 gm Furosemide (Lasix -) 40 mg PO DAILY [facility] Last Admin: 05/08/16 09:37 Dose: 40 mg Glipizide (Glucotrol -) 5 mg PO DAILY@0700 [facility] Last Admin: 05/09/16 06:17 Dose: 5 mg Heparin Sodium (Porcine) (Heparin -) 5,000 unit SQ BID [facility] Last Admin: 05/08/16 21:07 Dose: 5,000 unit Lisinopril (Prinivil) 2.5 mg PO DAILY [facility] Last Admin: 05/08/16 09:37 Dose: 2.5 mg Methylprednisolone Sodium Succinate (Solu-Medrol -) 40 mg IVPB Q8H-IV [facility] Last Admin: 05/09/16 01:03 Dose: 40 mg Tiotropium [place] (Spiriva -) 1 puff IH DAILY [facility] Last Admin: 05/08/16 09:39 Dose: 1 inh - Objective Vital Signs: Vital Signs Temperature 97.4 F L 05/09/16 05:00 Pulse Rate 71 05/09/16 10:09 Respiratory Rate 18 05/09/16 05:00 Blood Pressure 130/78 05/09/16 05:00 O2 Sat by Pulse Oximetry (%) 97 05/09/16 10:09 Constitutional: Yes: Well Nourished, Calm Eyes: Yes: WNL HENT: Yes: WNL Neck: Yes: WNL Cardiovascular: Yes: Regular Rate and Rhythm, S1, S2 Respiratory: Yes: Wheezes (LESS WHEEZES [place]) Gastrointestinal: Yes: Normal Bowel Sounds, Soft Extremities: Yes: WNL Edema: No Labs: CBC, BMP 05/09/16 05:20 05/09/16 05:20 - ....Imaging Chest X-ray: Report Reviewed, Image Reviewed Problem List - Problems (1) Elevated troponin Code(s): R79.89 - OTHER SPECIFIED ABNORMAL FINDINGS OF BLOOD CHEMISTRY (2) Fever Code(s): R50.9 - FEVER, UNSPECIFIED (3) Systemic inflammatory response syndrome (SIRS) Code(s): R65.10 - SIRS OF NON-INFECTIOUS ORIGIN W/O ACUTE ORGAN DYSFUNCTION (4) CAD (coronary artery disease) Code(s): I25.10 - ATHSCL HEART DISEASE OF [place] CORONARY ARTERY W/O ANG PCTRS (5) Chronic systolic CHF (congestive heart failure) Code(s): I50.22 - CHRONIC SYSTOLIC (CONGESTIVE) HEART FAILURE (6) Diabetes mellitus Code(s): E11.9 - TYPE 2 DIABETES MELLITUS WITHOUT COMPLICATIONS (7) Hyperlipidemia Code(s): E78.5 - HYPERLIPIDEMIA, UNSPECIFIED (8) Hypertension Code(s): I10 - ESSENTIAL (PRIMARY) HYPERTENSION (9) ICD (implantable cardioverter-defibrillator) malfunction Code(s): T82.9XXA - UNSP COMP OF CARDIAC AND VASCULAR PROSTH DEV/GRFT, INIT (10) Pneumonia Code(s): J18.9 - PNEUMONIA, UNSPECIFIED ORGANISM (11) DVT prophylaxis Code(s): EDT7451 - (12) Hx of CABG Code(s): Z95.1 - PRESENCE OF AORTOCORONARY BYPASS GRAFT (13) Bronchospasm, acute Code(s): J98.01 - ACUTE BRONCHOSPASM Assessment/Plan IMP RLL CONSOLIDATION LIKELY PNEUMONIA, CANNOT R/O MALIGNANCY BRONCHOSPASM improving MEDIASTINAL ADENOPATHY LIKELY REACTIVE ASHD S/P CABG CHF HTN DM H/O SMOKING PLAN IV ANTIBIOTICS STEROID taper INHALED BRONCHODILATORS SUPPLEMENTAL O2 F/U CHEST CT 4-6 WKS TO DOCUMENT RESOLUTION OF INFILTRATE,IF NO IMPROVEMENT WILL NEED BX TO R/O MALIGNANCY Problem List - Problems (1) Elevated troponin Code(s): R79.89 - OTHER SPECIFIED ABNORMAL FINDINGS OF BLOOD CHEMISTRY (2) Fever Code(s): R50.9 - FEVER, UNSPECIFIED (3) Systemic inflammatory response syndrome (SIRS) Code(s): R65.10 - SIRS OF NON-INFECTIOUS ORIGIN W/O ACUTE ORGAN DYSFUNCTION (4) CAD (coronary artery disease) Code(s): I25.10 - ATHSCL HEART DISEASE OF [place] CORONARY ARTERY W/O ANG PCTRS (5) Chronic systolic CHF (congestive heart failure) Code(s): I50.22 - CHRONIC SYSTOLIC (CONGESTIVE) HEART FAILURE (6) Diabetes mellitus Code(s): E11.9 - TYPE 2 DIABETES MELLITUS WITHOUT COMPLICATIONS (7) Hyperlipidemia Code(s): E78.5 - HYPERLIPIDEMIA, UNSPECIFIED (8) Hypertension Code(s): I10 - ESSENTIAL (PRIMARY) HYPERTENSION (9) ICD (implantable cardioverter-defibrillator) malfunction Code(s): T82.9XXA - UNSP COMP OF CARDIAC AND VASCULAR PROSTH DEV/GRFT, INIT (10) Pneumonia Code(s): J18.9 - PNEUMONIA, UNSPECIFIED ORGANISM (11) DVT prophylaxis Code(s): HQG7201 - (12) Hx of CABG Code(s): Z95.1 - PRESENCE OF AORTOCORONARY BYPASS GRAFT (13) Bronchospasm, acute Code(s): J98.01 - ACUTE BRONCHOSPASM
--- NOTE | 2016-05-09 10:56 | PN ---
Progress Note, Physician History of Present Illness: seen and examined today nad. feeling better. no overnight events. no new complaints. - Current Medication List Current Medications: Active Medications Acetaminophen (Tylenol -) 650 mg PO Q4H PRN PRN Reason: FEVER OR PAIN Albuterol Sulfate (Ventolin 0.083% Nebulizer Soln -) 1 amp NEB Q4H PRN PRN Reason: SHORT OF BREATH/WHEEZING Last Admin: 05/06/16 11:40 Dose: 1 amp Arformoterol Tartrate (Brovana (Restricted To Pulmonology/Resp) -) 1 amp NEB BID [facility] Last Admin: 05/09/16 10:10 Dose: 1 amp Aspirin (Asa -) 81 mg PO DAILY [facility] Last Admin: 05/09/16 10:18 Dose: 81 mg Atorvastatin Calcium (Lipitor -) 40 mg PO HS [facility] Last Admin: 05/08/16 21:07 Dose: 40 mg Azithromycin (Zithromax 500mg Ivpb (Pre-Docked)) 500 mg IVPB DAILY [facility] Last Admin: 05/09/16 10:18 Dose: 500 mg Carvedilol (Coreg -) 12.5 mg PO BID [facility] Last Admin: 05/09/16 10:18 Dose: 12.5 mg Ceftriaxone Sodium (Rocephin 1gm Ivpb (Pre-Docked)) 1 gm IVPB DAILY [facility] Last Admin: 05/09/16 10:18 Dose: 1 gm Furosemide (Lasix -) 40 mg PO DAILY [facility] Last Admin: 05/09/16 10:18 Dose: 40 mg Glipizide (Glucotrol -) 5 mg PO DAILY@0700 [facility] Last Admin: 05/09/16 06:17 Dose: 5 mg Heparin Sodium (Porcine) (Heparin -) 5,000 unit SQ BID [facility] Last Admin: 05/09/16 10:18 Dose: 5,000 unit Lisinopril (Prinivil) 2.5 mg PO DAILY [facility] Last Admin: 05/09/16 10:18 Dose: 2.5 mg Methylprednisolone Sodium Succinate (Solu-Medrol -) 40 mg IVPB BID [facility] Tiotropium [place] (Spiriva -) 1 puff IH DAILY [facility] Last Admin: 05/09/16 10:18 Dose: Not Given - Objective Vital Signs: Vital Signs Temperature 97.4 F L 05/09/16 05:00 Pulse Rate 71 05/09/16 10:09 Respiratory Rate 18 05/09/16 05:00 Blood Pressure 130/78 05/09/16 05:00 O2 Sat by Pulse Oximetry (%) 97 05/09/16 10:09 Constitutional: Yes: Well Nourished, No Distress, Calm Eyes: Yes: WNL, Conjunctiva Clear, EOM Intact, PERRL HENT: Yes: WNL, Atraumatic, Normocephalic Neck: Yes: WNL, Supple, Trachea Midline Cardiovascular: Yes: WNL, Regular Rate and Rhythm, S1, S2. No: Bradycardia, Tachycardia, Pulse Irregular, Bruit, JVD, Gallop, Murmur, Rub, S3, S4, Varicosities Respiratory: Yes: Regular, Wheezes. No: Rales, Rhonchi, SOB Gastrointestinal: Yes: WNL, Normal Bowel Sounds, Soft. No: Distention, Tenderness Musculoskeletal: Yes: WNL Extremities: Yes: WNL Edema: No Peripheral Pulses WNL: Yes Peripheral Pulses: Left Doralis Pedis: 2+, Right Dorsalis Pedis: 2+ Integumentary: Yes: WNL Neurological: Yes: WNL, Alert, Oriented, Cran Nerves II-XII Intact ...Motor Strength: WNL Psychiatric: Yes: WNL, Alert, Oriented Labs: CBC, BMP 05/09/16 05:20 05/09/16 05:20 - ....Imaging Chest X-ray: Report Reviewed, Image Reviewed EKG: Report Reviewed, Image Reviewed Other: Report Reviewed, Image Reviewed (tele-[facility], [facility]) Problem List - Problems (1) Bronchospasm, acute Code(s): J98.01 - ACUTE BRONCHOSPASM (2) Elevated troponin Code(s): R79.89 - OTHER SPECIFIED ABNORMAL FINDINGS OF BLOOD CHEMISTRY (3) Hx of CABG Code(s): Z95.1 - PRESENCE OF AORTOCORONARY BYPASS GRAFT (4) Lung mass Code(s): R91.8 - OTHER NONSPECIFIC ABNORMAL FINDING OF LUNG FIELD (5) Pneumonia Code(s): J18.9 - PNEUMONIA, UNSPECIFIED ORGANISM (6) Systemic inflammatory response syndrome (SIRS) Code(s): R65.10 - SIRS OF NON-INFECTIOUS ORIGIN W/O ACUTE ORGAN DYSFUNCTION (7) CAD (coronary artery disease) Code(s): I25.10 - ATHSCL HEART DISEASE OF [place] CORONARY ARTERY W/O ANG PCTRS (8) Chronic systolic CHF (congestive heart failure) Code(s): I50.22 - CHRONIC SYSTOLIC (CONGESTIVE) HEART FAILURE (9) Diabetes mellitus Code(s): E11.9 - TYPE 2 DIABETES MELLITUS WITHOUT COMPLICATIONS (10) Hyperlipidemia Code(s): E78.5 - HYPERLIPIDEMIA, UNSPECIFIED (11) Hypertension Code(s): I10 - ESSENTIAL (PRIMARY) HYPERTENSION (12) ICD (implantable cardioverter-defibrillator) malfunction Code(s): T82.9XXA - UNSP COMP OF CARDIAC AND VASCULAR PROSTH DEV/GRFT, INIT Assessment/Plan 75 year old man with a history of HTN, HLD, DMII, CAD h/o PR s/p CABG 2002, stents, Chronic systolic CHF s/p ICD admitted with cough, fever, sore throat. Cough-wheezing, likely AE COPD/bronchitis -wheezing improved today -euvolemic, not clinically in acute on chronic CHF -cont po Lasix, asa, lipitor, coreg, lisinopril -cont tx as per pulm reccs -no arrhythmias on tele, can dc tele CAD-h/o PR, CABG, stents -stable, mildly elevated troponin with normal CK, unlikely type I PR -cont ASA and statin Chronic systolic CHF-s/p ICD -euvolemic -cont current medical regimen, plan is to start spironolactone if bun/creat/K/ BP remain stable HTN-low normal -cont current meds for now HLD -cont statin
[2016-05-09] MEDS ORDERED: predniSONE 20 MG TABLET (UD) PO SCH (11:45)
[2016-05-09] MEDS ORDERED: LEVOFLOXACIN 500 MG TABLET (FP) PO SCH (11:45)
--- NOTE | 2016-05-09 11:45 | DS ---
Physical Examination Vital Signs: Vital Signs Temperature 97.4 F L 05/09/16 05:00 Pulse Rate 71 05/09/16 10:09 Respiratory Rate 18 05/09/16 10:00 Blood Pressure 134/73 05/09/16 10:00 O2 Sat by Pulse Oximetry (%) 97 05/09/16 10:09 Constitutional: Yes: No Distress Eyes: Yes: WNL HENT: Yes: WNL Neck: Yes: WNL Cardiovascular: Yes: WNL Respiratory: Yes: Wheezes Gastrointestinal: Yes: WNL Renal/: Yes: WNL Musculoskeletal: Yes: WNL Extremities: Yes: WNL Edema: No Peripheral Pulses WNL: Yes Integumentary: Yes: WNL Wound/Incision: Yes: Clean/Dry Neurological: Yes: WNL ...Motor Strength: WNL Psychiatric: Yes: WNL Labs: CBC, BMP 05/09/16 05:20 05/09/16 05:20 Discharge Summary Reason For Visit: FEVER; SIRS Current Active Problems Bronchospasm, acute (Acute) Elevated troponin (Acute) Fever (Acute) Hx of CABG (Acute) Lung mass (Acute) Pneumonia (Acute) Systemic inflammatory response syndrome (SIRS) (Acute) The administrative codes within the [employer] content you are accessing may have as of 01/17/2016. Please contact your IT Dept/Help Desk and request the latest Regulatory release be installed. IT Dept/Help Desk- Please refer to our FAQ page ([email or web address]) or contact [employer] Customer Support at [email or web address] (Acute) Procedures: Principal: CT SCAN CHEST Other Procedures: LABS/ECHO Hospital Course: ADMITTED FOR ACUTE PNA, TREATED WITH IV ABX AND STEROIDS,, SYMPTOMS IMPROVED, WILL DC HOME TODAY F/U OUT PATIENT IN 2-3 DAYS WITH PMD Condition: Stable - Instructions Diet, Activity, Other Instructions: LOW SALT Referrals: Gordon Reddy MD [Primary Care Provider] - Disposition: HOME - Home Medications Comprehensive Discharge Medication List: Ambulatory Orders Amlodipine Besylate [Norvasc -] 10 mg PO DAILY 07/28/12 Aspirin 81 mg PO DAILY 07/28/12 Atorvastatin Ca [Lipitor] 40 mg PO HS 07/28/12 Carvedilol [Coreg -] 25 mg PO DAILY 07/28/12 Furosemide [Lasix -] 40 mg PO DAILY 07/28/12 Glipizide [Glucotrol -] 5 mg PO DAILY@0700 07/28/12
[2016-05-09 15:15] VITALS: BP 134/76; TEMP 97.6
[2016-05-09] MEDS ORDERED: methylPREDNISolone NA SUCC 40 MG/1 ML VIAL IVPB SCH (22:00)
--- NOTE | 2016-05-10 16:24 | EKG ---
Test Reason : Blood Pressure : / mmHG Vent. Rate : 070 BPM Atrial Rate : 039 BPM P-R Int : 000 ms QRS Dur : 168 ms QT Int : 540 ms P-R-T Axes : 000 -56 110 degrees QTc Int : 583 ms Ventricular-paced rhythm ABNORMAL ECG WHEN COMPARED WITH ECG OF 11-JUL-2013 13:37, NO SIGNIFICANT CHANGE WAS FOUND Confirmed by CHRISTINA STRANGE MD ([id number]) on 05/10/2016 4:24:13 PM Referred By: Confirmed By:CHRISTINA STRANGE MD
== END 2016-05-09 16:43 | disposition home or self-care (01) | DRG 871 ==
LOC: JER 16:18 → JERBED 19:21 → UNDOADMOB 19:21 → OBSVTOIN 20:05 → JERBED 20:05 → J4W 23:21
PROVIDERS: ADMIT Family Medicine; ATTEND Family Medicine
DX: A41.9 Sepsis, unspecified organism (principal); J18.9 Pneumonia, unspecified organism; I50.22 Chronic systolic (congestive) heart failure; E11.9 Type 2 diabetes mellitus without complications; E78.5 Hyperlipidemia, unspecified; I25.10 Atherosclerotic heart disease of native coronary artery without angina pectoris; R79.89 Other specified abnormal findings of blood chemistry; R91.8 Other nonspecific abnormal finding of lung field; J98.01 Acute bronchospasm; I25.2 Old myocardial infarction; K63.5 Polyp of colon; K57.90 Diverticulosis of intestine, part unspecified, without perforation or abscess without bleeding; I11.0 Hypertensive heart disease with heart failure; Z95.5 Presence of coronary angioplasty implant and graft; Z95.0 Presence of cardiac pacemaker; Z95.1 Presence of aortocoronary bypass graft; Z87.891 Personal history of nicotine dependence
CPT/HCPCS: 36415; 71010-TC; 71020-TC; 71250-TC; 80053; 80061; 81003; 82550; 82553; 83036; 83605; 83721; 83880; 84443; 84484; 85025; 85027; 87040; 87086; 87254; 87804; 93005; 93010; 93306-TC; 94640; 99285-25; J1644

== ENCOUNTER 2018-04-26 02:02 | Inpatient (IN) | payer OTHER ==
--- NOTE | 2018-04-26 02:39 | PDOC ---
History of Present Illness - General Chief Complaint: Chest Pain Stated Complaint: CHEST PAIN Time Seen by Provider: 04/26/18 02:14 - History of Present Illness Initial Comments: 04/26/18 06:54 The patient is a 77 year old male, with a significant past medical history of hypertension, diabetes, hyperlipidemia, CAD (s/p 4 stents) , who presents to the emergency department with, 2 days of chest pain. As per patient, his symptoms onset early yesterday morning while he was sitting down. He notes he believed the symptoms would resolve with relaxation but, after the symptoms persisted he called for EMS. He denies any recent shortness of breath, palpitations, or diaphoresis. He denies any recent fevers, chills, headache or dizziness. He denies any recent nausea, vomit, diarrhea or constipation. He denies any recent dysuria, frequency , urgency or hematuria. Allergies: NKDA Past surgical history: Cardiac stenting x4. Social History: Nonsmoker. Denies EtOH use and recreational drug use. Primary Care Physician: Dr. Reddy Past History - Past Medical History Allergies/Adverse Reactions: Allergies Allergy/AdvReac Type Severity Reaction Status Date / Time No Known Allergies Allergy Verified 04/26/18 02:31 Home Medications: Ambulatory Orders Aspirin 81 mg PO DAILY 07/28/12 Atorvastatin Ca [Lipitor] 40 mg PO HS 07/28/12 Furosemide [Lasix -] 40 mg PO DAILY 07/28/12 Glipizide [Glucotrol -] 5 mg PO DAILY@0700 07/28/12 Acetaminophen [Tylenol .Regular Strength -] 650 mg PO Q4H PRN #0 tablet Albuterol 0.083% Nebulizer [place]ce[place] [Ventolin 0.083% Nebulizer Soln -] 1 amp NEB Q4H PRN #1 box 05/09/16 Lisinopril [Prinivil] 2.5 mg PO DAILY #30 tablet 05/09/16 Tiotropium [place] [Spiriva] 1 puff IH DAILY #1 inh 05/09/16 Carvedilol [Coreg -] 25 mg PO BID tablet 04/28/18 Spironolactone [Aldactone -] 25 mg PO DAILY #30 tablet 04/28/18 Anemia: No Asthma: No Cancer: No Cardiac Disorders: Yes (STENT, PACEMAKER) CVA: No COPD: No CHF: No Dementia: No Diabetes: Yes (NIDDM) GI Disorders: Yes (VILLOUS MASS) Disorders: No HTN: Yes Hypercholesterolemia: Yes Liver Disease: No Seizures: No Thyroid Disease: No - Surgical History Abdominal Surgery: No Appendectomy: No Cardiac Surgery: Yes (OPEN HEART SX, STENT PLACEMENT) Cholecystectomy: No Lung Surgery: No Neurologic Surgery: No Orthopedic Surgery: No - Suicide/Smoking/Psychosocial Hx Smoking History: Never smoked Have you smoked in the past 12 months: No Information on smoking cessation initiated: No Hx Alcohol Use: No Drug/Substance Use Hx: No Substance Use Type: None Hx Substance Use Treatment: No Review of Systems - Review of Systems Comments:: 04/26/18 07:27 GENERAL/CONSTITUTIONAL: No fever or chills. No weakness. HEAD, EYES, EARS, NOSE AND THROAT: No change in vision. No ear pain or discharge. No sore throat. GASTROINTESTINAL: No nausea, vomiting, diarrhea or constipation. GENITOURINARY: No dysuria, frequency, or change in urination. +CARDIOVASCULAR: Chest pain. No shortness of breath. RESPIRATORY: No cough, wheezing, or hemoptysis. MUSCULOSKELETAL: No joint or muscle swelling or pain. No neck or back pain. SKIN: No rash NEUROLOGIC: No headache, vertigo, loss of consciousness, or change in strength/ sensation. ENDOCRINE: No increased thirst. No abnormal weight change. HEMATOLOGIC/LYMPHATIC: No anemia, easy bleeding, or history of blood clots. ALLERGIC/IMMUNOLOGIC: No hives or skin allergy. *Physical Exam - Vital Signs Last Vital Signs Temp Pulse Resp BP Pulse Ox 98.1 F 64 16 170/71 98 04/26/18 02:02 04/26/18 02:02 04/26/18 02:02 04/26/18 02:02 04/26/18 02:02 - Physical Exam Comments: 04/26/18 07:28 GENERAL: Awake, alert, and fully oriented, in no acute distress EYES: Sclera anicteric, conjunctiva clear ENT: Moist mucosa NECK: Normal ROM, supple, no lymphadenopathy, JVD, or masses LUNGS: +diminished BS R>L, no wheezes, and no crackles HEART: Regular rate and rhythm, normal S1 and S2, no murmurs, rubs or gallops ABDOMEN: Soft, nontender, normoactive bowel sounds. No guarding, no rebound. No masses EXTREMITIES: Normal range of motion, no edema.No cords, erythema, or tenderness NEUROLOGICAL: Normal speech, cranial nerves intact, equal strength and sensation b/l SKIN: Warm, Dry, normal turgor, no rashes or lesions noted." Moderate Sedation - Procedure Monitoring Vital Signs: Procedure Monitoring Vital Signs Temperature 98.1 F 04/26/18 02:02 Pulse Rate 64 04/26/18 02:02 Respiratory Rate 16 04/26/18 02:02 Blood Pressure 170/71 04/26/18 02:02 O2 Sat by Pulse Oximetry (%) 98 04/26/18 02:02 Heart Score/ECG Review #1 04/26/18 04:05 Twelve-lead EKG was performed and reviewed by me. Ventricular paced rhythm, rate 50. No significant change compared to EKG from 05/06/2016. ED Treatment Course - LABORATORY CBC & Chemistry Diagram: 04/28/18 06:00 04/28/18 06:00 - RADIOLOGY Radiology Studies Ordered: Category Date Time Status CHEST X-RAY PORTABLE* [RAD] Stat Radiology 04/26/18 02:31 Ordered Medical Decision Making - Medical Decision Making 04/26/18 07:18 77 year old male with a past medical history of hypertension, diabetes, hyperlipidemia, h/o of [place] s/p CABG 2002, chronic systolic CHF s/p ICD, CAD (s/p 4 stents) and COPD presents to the ED with chest pain. DDx includes ACS vs PNA vs CHF vs PE. Labs with trop leak of 0.11. Plan to admit for SARWAT, despite multiple pages to hospitalist, no call back for admission. Pt endorsed to oncoming attending for further mgmt/admission. *DC/Admit/Observation/Transfer Diagnosis at time of Disposition: Chest pain - Discharge Dispostion Condition at time of disposition: Stable - Prescriptions - Referrals - Patient Instructions - Post Discharge Activity
[2018-04-26 05:52] LABS: BASO % 0.6 % (0-2.0); EOS % 0.2 % (0-4.5); HEMATOCRIT 41.6 % (35.4-49); HEMOGLOBIN 13.2 GM/dL (11.7-16.9); LYMPH % 10.2 % (8-40); MCH 27.2 pg (25.7-33.7); MCHC 31.6 g/dl (32.0-35.9); MEAN CELL VOLUME 86.2 fl (80-96); MEAN PLT VOLUME 8.8 fl (7.5-11.1); MONO % 8.8 % (3.8-10.2); NEUT % 80.2 % (42.8-82.8); PLATELET COUNT 173 K/MM3 (134-434); RBC 4.83 M/mm3 (4.00-5.60); RDW 14.7 % (11.9-15.9); WHITE BLOOD COUNT 9.9 K/mm3 (4.0-10.0)
[2018-04-26 06:04] LABS: INR 1.33 (0.83-1.09); PROTHROMBIN TIME (PATIENT) 15.7 SEC (9.7-13.0)
[2018-04-26 06:07] LABS: ACTIVATED PTT 30.3 SECONDS (25.2-36.5)
[2018-04-26 06:20] LABS: MAGNESIUM 2.1 mg/dL (1.8-2.4)
[2018-04-26 06:21] LABS: ALBUMIN 2.9 g/dl (3.4-5.0); ALK PHOS 104 U/L (45-117); ANION GAP 6 MMOL/L (8-16); BILIRUBIN,TOTAL 1.9 mg/dL (0.2-1); BLOOD UREA NITROGEN 24 mg/dL (7-18); CALCIUM 8.6 mg/dL (8.5-10.1); CHLORIDE 109 mmol/L (98-107); CO2 26 mmol/L (21-32); CREATININE 1.2 mg/dL (0.55-1.3); GLUCOSE,RANDOM 121 mg/dL (74-106); POTASSIUM 4.3 mmol/L (3.5-5.1); SGOT/AST 14 U/L (15-37); SGPT/ALT 12 U/L (13-61); SODIUM 141 mmol/L (136-145); TOT PROT 6.2 g/dl (6.4-8.2)
[2018-04-26] MEDS ORDERED: ASPIRIN 325 MG TABLET PO ONE (07:15)
--- NOTE | 2018-04-26 08:02 | HP ---
CHIEF COMPLAINT: chest pain with shortness of breath Dr. Reddy, PCP Dr. 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 He presents to the ED for c/o two days of midsternal non radiating 8/10 chest pain. Patient states the chest pain began yesterday with associated shortness of breath. He tried to rest, but chest pain and shortness of breath persisted. He called then called EMS. Patient states he saw Dr. Emanuel about 2 months ago for a follow up visit. He denies any recent fevers, chills, headache or dizziness. He denies any recent travel. He is a former smoker and has quit 15 years ago, no smoking since. ER course was notable for: (1) trop 0.14 (2) ekg ventricular paced rhythm 50s (3) asa 325mg (4) chest xray: no evidence of chf, of the vessels with questionable air space opacity in the region of the right cardiophrenic angle. Recent Travel: none reported PAST MEDICAL HISTORY: hypertension, diabetes, hyperlipidemia, h/o of [place] s/p CABG 2002, chronic systolic CHF s/p ICD, CAD (s/p 4 stents) and COPD. PAST SURGICAL HISTORY: Cardiac stenting x4. Social History: Smoking: quit 15 years ago Alcohol: none Drugs: none Family History: Allergies No Known Allergies Allergy (Verified 04/26/18 02:31) HOME MEDICATIONS: Home Medications Medication Instructions Recorded Aspirin 81 mg PO DAILY 07/28/12 Atorvastatin Ca [Lipitor] 40 mg PO HS 07/28/12 Carvedilol [Coreg -] 25 mg PO DAILY 07/28/12 Furosemide [Lasix -] 40 mg PO DAILY 07/28/12 Glipizide [Glucotrol -] 5 mg PO DAILY@0700 07/28/12 Acetaminophen [Tylenol .Regular 650 mg PO Q4H PRN #0 tablet 05/09/16 Strength -] Albuterol 0.083% Nebulizer [place]ce[place] 1 amp NEB Q4H PRN #1 box 05/09/16 [Ventolin 0.083% Nebulizer Soln -] Lisinopril [Prinivil] 2.5 mg PO DAILY #30 tablet 05/09/16 Tiotropium [place] [Spiriva] 1 puff IH DAILY #1 inh 05/09/16 levoFLOXacin [Levaquin -] 500 mg PO DAILY #7 tablet 05/09/16 predniSONE [Deltasone -] 20 mg PO DAILY #5 tablet 05/09/16 REVIEW OF SYSTEMS CONSTITUTIONAL: Absent: fever, chills, diaphoresis, generalized weakness, malaise, loss of appetite, weight change HEENT: Absent: rhinorrhea, nasal congestion, throat pain, throat swelling, difficulty swallowing, mouth swelling, ear pain, eye pain, visual changes CARDIOVASCULAR: Absent: syncope, palpitations, irregular heart rate, lightheadedness, peripheral edema GASTROINTESTINAL: Absent: abdominal pain, abdominal distension, nausea, vomiting, diarrhea, constipation, melena, hematochezia GENITOURINARY: Absent: dysuria, frequency, urgency, hesitancy, hematuria, flank pain, genital pain MUSCULOSKELETAL: Absent: myalgia, arthralgia, joint swelling, back pain, neck pain SKIN: Absent: rash, itching, pallor HEMATOLOGIC/IMMUNOLOGIC: Absent: easy bleeding, easy bruising, lymphadenopathy, frequent infections ENDOCRINE: Absent: unexplained weight gain, unexplained weight loss, heat intolerance, cold intolerance NEUROLOGIC: Absent: headache, focal weakness or paresthesias, dizziness, unsteady gait, seizure, mental status changes, bladder or bowel incontinence PSYCHIATRIC: Absent: anxiety, depression, suicidal or homicidal ideation, hallucinations. PHYSICAL EXAMINATION Vital Signs - 24 hr 04/26/18 02:02 Temperature 98.1 F Pulse Rate 64 Respiratory 16 Rate Blood Pressure 170/71 O2 Sat by Pulse 98 Oximetry (%) GENERAL: Awake, alert, and fully oriented, in mild respiratory distress relieved with oxygen @ 2 liters HEAD: Normal with no signs of trauma. EYES: Pupils equal, round and reactive to light, extraocular movements intact, sclera anicteric, conjunctiva clear. No lid lag. EARS, NOSE, THROAT: Ears normal, nares patent, oropharynx clear without exudates. Moist mucous membranes. NECK: Normal range of motion, supple without lymphadenopathy, JVD, or masses. LUNGS: mild wheezing bilaterally, shortness of breath at rest HEART:venticulator rate rhythm on ekg 50s ABDOMEN: Soft, nontender, not distended, normoactive bowel sounds, no guarding, no rebound, no masses. No hepatomegaly or splenomegaly. MUSCULOSKELETAL: Normal range of motion at all joints. No bony deformities or tenderness. No CVA tenderness. UPPER EXTREMITIES: No peripheral edema. LOWER EXTREMITIES: No peripheral edema. NEUROLOGICAL: Normal speech. Normal gait. PSYCHIATRIC: Cooperative. Good eye contact. Appropriate mood and affect. SKIN: Warm, dry, normal turgor, no rashes or lesions noted, normal capillary refill. Laboratory Results - last 24 hr 04/26/18 04/26/18 04/26/18 03:59 05:20 05:20 WBC 9.9 RBC 4.83 Hgb 13.2 Hct 41.6 D MCV 86.2 MCH 27.2 MCHC 31.6 L RDW 14.7 Plt Count 173 D MPV 8.8 Absolute Neuts (auto) 7.9 Neutrophils % 80.2 Lymphocytes % 10.2 D Monocytes % 8.8 D Eosinophils % 0.2 D Basophils % 0.6 Nucleated RBC % 0 PT with INR 15.70 H INR 1.33 H PTT (Actin FS) 30.3 Sodium 141 Potassium 4.3 Chloride 109 H Carbon Dioxide 26 Anion Gap 6 L BUN 24 H Creatinine 1.2 Creat Clearance w eGFR 58.71 Random Glucose 121 H Calcium 8.6 Magnesium Total Bilirubin 1.9 H AST 14 L ALT 12 L Alkaline Phosphatase 104 Troponin I Total Protein 6.2 L Albumin 2.9 L 04/26/18 05:20 WBC RBC Hgb Hct MCV MCH MCHC RDW Plt Count MPV Absolute Neuts (auto) Neutrophils % Lymphocytes % Monocytes % Eosinophils % Basophils % Nucleated RBC % PT with INR INR PTT (Actin FS) Sodium Potassium Chloride Carbon Dioxide Anion Gap BUN Creatinine Creat Clearance w eGFR Random Glucose Calcium Magnesium 2.1 Total Bilirubin AST ALT Alkaline Phosphatase Troponin I 0.14 H Total Protein Albumin ASSESSMENT/PLAN: Patient is a 77 year old male with a past medical history of hypertension, diabetes, hyperlipidemia, h/o of [place] s/p CABG 2002, chronic systolic CHF s/p ICD , CAD (s/p 4 stents) and COPD. He presents to the ED for c/o two days of midsternal non radiating 8/10 chest pain. Patient states the chest pain began yesterday with associated shortness of breath. He tried to rest, but chest pain and shortness of breath persisted. He called then called EMS. He denies any recent fevers, chills, headache or dizziness. He denies any recent nausea, vomit, diarrhea or constipation. He denies any recent dysuria, frequency, urgency or hematuria. He denies any recent travel. He is a former smoker and has quit 15 years ago, no smoking since. Pulmonary: Shortness of breath/wheezing, likely secondary to acute COPD/bronchitis Euvolemic, no clinical signs of fluid overload, however is still short of breath Patient on Lasix, ASA, Lipitor, Coreq, Lisinopril EKG shows ventricular rhythm 50s. For Tele monitoring Currently on supplemental oxygen @ 2 liters Will add duonebs Cardiology: CAD, h/o [place], CABG with 4 stents Chest pain, acute Rule out ACS Trop 0.14 on admission, will trend ck and troponins On ASA, statin therapy Chronic systolic CHF s/p ICD No signs of fluid overload. monitor intake and output. Hypertension, uncontrolled Continue home meds and monitor HLD Continue statin, fasting lipid panel ordered for a.m Endocrine Diabetes Only on Glipizide at home Monitor BGMs, start Novolog SS if bgms are elevated. fen oral intake sufficient monitor electrolytes low salt diet/diabetic prophy LOS <48 hours, defer a/c full code Visit type - Emergency Visit Emergency Visit: Yes Care time: The patient presented to the Emergency Department on the above date and was hospitalized for further evaluation of their emergent condition. - New Patient This patient is new to me today: Yes Date on this admission: 04/26/18 - Critical Care Critical Care patient: No
--- NOTE | 2018-04-26 10:52 | PDOC ---
*Physical Exam - Vital Signs Last Vital Signs Temp Pulse Resp BP Pulse Ox 98.0 F 50 L 20 124/64 94 L 04/26/18 10:00 04/26/18 10:00 04/26/18 10:00 04/26/18 10:00 04/26/18 10:00 ED Treatment Course - LABORATORY CBC & Chemistry Diagram: 04/28/18 06:00 04/28/18 06:00 - ADDITIONAL ORDERS Additional order review: Laboratory Results 04/26/18 04/26/18 04/26/18 05:20 05:20 03:59 PT with INR 15.70 H INR 1.33 H PTT (Actin FS) 30.3 Sodium 141 Potassium 4.3 Chloride 109 H Carbon Dioxide 26 Anion Gap 6 L BUN 24 H Creatinine 1.2 Creat Clearance w eGFR 58.71 Random Glucose 121 H Calcium 8.6 Magnesium 2.1 Total Bilirubin 1.9 H AST 14 L ALT 12 L Alkaline Phosphatase 104 Troponin I 0.14 H Total Protein 6.2 L Albumin 2.9 L 04/26/18 05:20 RBC 4.83 MCV 86.2 MCHC 31.6 L RDW 14.7 MPV 8.8 Neutrophils % 80.2 Lymphocytes % 10.2 D Monocytes % 8.8 D Eosinophils % 0.2 D Basophils % 0.6 - Medications Given in the ED: ED Medications Discontinued Medications Generic Name Dose Route Start Last Admin Trade Name Freq PRN Reason Stop Dose Admin Aspirin 325 mg 04/26/18 07:15 04/26/18 07:33 Asa - PO 04/26/18 07:16 325 mg ONCE ONE Administration Medical Decision Making - Medical Decision Making 04/26/18 10:43 I received this patient on sign out Overnight team had been attempting to admit Plan is to contact Dr Lara for admission 04/28/18 09:53 *DC/Admit/Observation/Transfer Diagnosis at time of Disposition: Chest pain Qualifiers: Chest pain type: unspecified Qualified Code(s): R07.9 - Chest pain, unspecified - Discharge Dispostion Condition at time of disposition: Stable Decision to Admit order: Yes - Referrals - Patient Instructions - Post Discharge Activity
[2018-04-26] MEDS: CARVEDILOL 25 MG TABLET (FP) PO SCH ×2 (11:09→22:14)
[2018-04-26] MEDS: ASPIRIN 81 MG CHEWABLE TABLETS PO SCH (11:09)
[2018-04-26] MEDS: FUROSEMIDE 40 MG TABLET (FP) PO SCH (11:09)
[2018-04-26] MEDS: LISINOPRIL 5 MG TABLET (FP) PO SCH (11:10)
[2018-04-26] MEDS: ALBUTEROL SO4 2.5/IPRATROPIUM 0.5 INH SOL 3 ML VIAL.NEB. NEB SCH (11:10)
--- NOTE | 2018-04-26 11:11 | CON.CARD ---
Consult - History of Present Illness History of Present Illness: Patient is a 77 year old male with a past medical history of hypertension, diabetes, hyperlipidemia, h/o of [place] s/p CABG 2002, chronic systolic CHF s/p ICD , CAD (s/p 4 stents) and COPD. He presents to the ED for c/o two days of midsternal non radiating 8/10 chest pain. Patient states the chest pain began yesterday with associated shortness of breath. He tried to rest, but chest pain and shortness of breath persisted. He called then called EMS. Patient states he saw Dr. Emanuel about 2 months ago for a follow up visit. He denies any recent fevers, chills, headache or dizziness. He denies any recent travel. He is a former smoker and has quit 15 years ago, no smoking since. ER course was notable for: (1) trop 0.14 (2) ekg ventricular paced rhythm 50s (3) asa 325mg (4) chest xray: no evidence of chf, of the vessels with questionable air space opacity in the region of the right cardiophrenic angle. - Past Medical History Cardio/Vascular: Yes: CAD (Stent placement.), CHF, HTN, Hyperlipdemia. No: AFIB Pulmonary: Yes: Bronchitis, Pneumonia - Past Surgical History Past Surgical History: Yes: AICD, CABG, Stent (coronary) - Alcohol/Substance Use Hx Alcohol Use: No History of Substance Use: reports: None - Smoking History Smoking history: Never smoked Have you smoked in the past 12 months: No - Social History Usual Living Arrangement: Alone Home Medications - Allergies Allergies/Adverse Reactions: Allergies Allergy/AdvReac Type Severity Reaction Status Date / Time No Known Allergies Allergy Verified 04/26/18 02:31 - Home Medications Home Medications: Ambulatory Orders Aspirin 81 mg PO DAILY 07/28/12 Atorvastatin Ca [Lipitor] 40 mg PO HS 07/28/12 Carvedilol [Coreg -] 25 mg PO DAILY 07/28/12 Furosemide [Lasix -] 40 mg PO DAILY 07/28/12 Glipizide [Glucotrol -] 5 mg PO DAILY@0700 07/28/12 Acetaminophen [Tylenol .Regular Strength -] 650 mg PO Q4H PRN #0 tablet Albuterol 0.083% Nebulizer [place] [Ventolin 0.083% Nebulizer Soln -] 1 amp NEB Q4H PRN #1 box 05/09/16 Lisinopril [Prinivil] 2.5 mg PO DAILY #30 tablet 05/09/16 Tiotropium [place] [Spiriva] 1 puff IH DAILY #1 inh 05/09/16 levoFLOXacin [Levaquin -] 500 mg PO DAILY #7 tablet 05/09/16 predniSONE [Deltasone -] 20 mg PO DAILY #5 tablet 05/09/16 Vital Signs: Vital Signs Temperature 98.0 F 04/26/18 10:00 Pulse Rate 50 L 04/26/18 10:00 Respiratory Rate 20 04/26/18 10:00 Blood Pressure 124/64 04/26/18 10:00 O2 Sat by Pulse Oximetry (%) 94 L 04/26/18 10:00 - Other Data Labs, Other Data: CBC, BMP 04/26/18 05:20 04/26/18 03:59 INR, PTT INR 1.33 (0.83-1.09) H 04/26/18 05:20 Troponin, BNP 04/26/18 05:20 Troponin I 0.14 H Troponin, BNP 04/26/18 05:20 Troponin I 0.14 H
--- NOTE | 2018-04-26 13:08 | EKG ---
Test Reason : Blood Pressure : / mmHG Vent. Rate : 050 BPM Atrial Rate : 072 BPM P-R Int : 000 ms QRS Dur : 234 ms QT Int : 582 ms P-R-T Axes : 000 -62 104 degrees QTc Int : 530 ms Ventricular-paced rhythm ABNORMAL ECG WHEN COMPARED WITH ECG OF 06-MAY-2016 08:50, VENT. RATE HAS DECREASED BY 20 BPM Confirmed by DAGOBERTO ORO MD ([id number]) on 04/26/2018 1:07:49 PM Referred By: Confirmed By:DAGOBERTO ORO MD
--- NOTE | 2018-04-26 16:13 | ECHO ---
Name: NYLA RAMIREZ Exam:Adult Echocardiogram Study Date: 04/26/2018 01:32 PM Age: 77 yrs Reason For Study: Palpitations Height: 66 in Weight: 180 lb BSA: 1.9 m2 MMode/2D Measurements & Calculations IVSd: 1.1 cm Ao root diam: 3.7 cm LVIDd: 6.2 cm LA dimension: 4.4 cm LVIDs: 5.4 cm LVPWd: 1.3 cm IVSs: 1.0 cm LVPWs: 1.4 cm EDV(Teich): 191.1 ml ESV(Teich): 138.8 ml LVOT diam: 2.0 cm Doppler Measurements & Calculations MV E max kadeem: 74.0 cm/sec Ao V2 max: 243.5 cm/sec MV A max kadeem: 51.8 cm/sec Ao max P.8 mmHg MV E/A: 1.4 Ao V2 mean: 155.0 cm/sec Ao mean P.6 mmHg Ao V2 VTI: 44.0 cm NORBERT(I,D): 0.98 cm2 NORBERT(V,D): 1.0 cm2 LV V1 max P.4 mmHg MR max kadeem: 257.9 cm/sec LV V1 mean P.3 mmHg MR max P.7 mmHg LV V1 max: 77.6 cm/sec LV V1 mean: 52.5 cm/sec LV V1 VTI: 13.8 cm SV(LVOT): 43.2 ml TR max kadeem: 220.4 cm/sec TR max P.6 mmHg RVSP(TR): 29.6 mmHg Med Peak E' Kadeem: 3.9 cm/sec RAP systole: 10.0 mmHg Med E/e': 18.8 Lat Peak E' Kadeem: 4.4 cm/sec Lat E/e': 16.9 Procedure A two-dimensional transthoracic echocardiogram with color flow and Doppler was performed. The study w as technically difficult with many images being suboptimal in quality. Left Ventricle The left ventricle is mildly dilated. Left ventricular systolic function is severely reduced. There i s severe global hypokinesis of the left ventricle. There is apical akinesis. There is apical anterior wall georgie nesis. There is apical septal wall akinesis. Right Ventricle The right ventricle is normal in size and function. There is a pacemaker lead in the right ventricle. Atria The left atrium is moderately dilated. The right atrium is moderately dilated. Mitral Valve There is mild mitral valve thickening. There is no mitral valve stenosis. There is moderate mitral regurgitation. Tricuspid Valve There is mild tricuspid valve thickening. There is no tricuspid stenosis. There is mild tricuspid regurgitation. Right ventricular systolic pressure is elevated at 30-40mmHg. Aortic Valve The aortic valve is not well visualized. There is mild to moderate aortic valve thickening. There is mild to moderate aortic sclerosis.;. Hemodynamically significant valvular aortic stenosis cannot be excluded. No aortic regurgitation is present. Pulmonic Valve The pulmonic valve is not well visualized. Great Vessels The aortic root is normal size. Pericardium/Pleura There is no pericardial effusion. Interpretation Summary The study was technically difficult with many images being suboptimal in quality. The left ventricle is mildly dilated. The left atrium is moderately dilated. The right atrium is moderately dilated. Left ventricular systolic function is severely reduced. There is severe global hypokinesis of the left ventricle. There is apical akinesis. There is a pacemaker lead in the right ventricle. There is apical anterior wall akinesis. There is apical septal wall akinesis. There is moderate mitral regurgitation. There is mild tricuspid regurgitation. Right ventricular systolic pressure is elevated at 30-40mmHg. The aortic valve is not well visualized. There is mild to moderate aortic valve thickening. There is mild to moderate aortic sclerosis.; Hemodynamically significant valvular aortic stenosis cannot be excluded. MD Romaine Alvarez 04/26/2018 04:13 PM
--- NOTE | 2018-04-26 17:44 | PN ---
Progress Note, Physician Chief Complaint: CHEST PAIN History of Present Illness: NAD Seen by cardiology no more complaints of chest pain Echo done-reviewed Awaiting bed on Telemetry - Current Medication List Current Medications: Active Medications Albuterol/Ipratropium (Duoneb -) 1 amp NEB RQID [facility] Last Admin: 04/26/18 11:10 Dose: 1 amp Aspirin (Asa -) 81 mg PO DAILY [facility] Last Admin: 04/26/18 11:09 Dose: 81 mg Atorvastatin Calcium (Lipitor -) 40 mg PO HS [facility] Carvedilol (Coreg -) 25 mg PO BID [facility] Last Admin: 04/26/18 11:09 Dose: 25 mg Furosemide (Lasix -) 40 mg PO DAILY [facility] Last Admin: 04/26/18 11:09 Dose: 40 mg Glipizide (Glucotrol -) 5 mg PO DAILY@0700 [facility] Lisinopril (Prinivil) 2.5 mg PO DAILY [facility] Last Admin: 04/26/18 11:10 Dose: 2.5 mg Tiotropium [place] (Spiriva Respimat) 1 puff IH DAILY [facility] - Objective Vital Signs: Vital Signs Temperature 98.0 F 04/26/18 10:00 Pulse Rate 50 L 04/26/18 10:00 Respiratory Rate 20 04/26/18 10:00 Blood Pressure 124/64 04/26/18 10:00 O2 Sat by Pulse Oximetry (%) 94 L 04/26/18 10:00 Constitutional: Yes: Well Nourished, No Distress, Calm Cardiovascular: Yes: Regular Rate and Rhythm Respiratory: Yes: Regular Gastrointestinal: Yes: Normal Bowel Sounds, Soft Musculoskeletal: Yes: WNL Extremities: Yes: WNL Edema: No Peripheral Pulses WNL: Yes Neurological: Yes: Alert, Oriented Psychiatric: Yes: Alert, Oriented Labs: CBC, BMP 04/26/18 05:20 04/26/18 03:59 INR, PTT INR 1.33 (0.83-1.09) H 04/26/18 05:20 Problem List - Problems (1) Chest pain Assessment/Plan: -Cardiology consult -Echo-done and reviewed -Observe tele overnight -trops elevated-previously elevated as well Code(s): R07.9 - CHEST PAIN, UNSPECIFIED Qualifiers: Chest pain type: unspecified Qualified Code(s): R07.9 - Chest pain, unspecified (2) CAD (coronary artery disease) Assessment/Plan: -Cardiology on board -On asa + statin Code(s): I25.10 - ATHSCL HEART DISEASE OF [place] CORONARY ARTERY W/O ANG PCTRS (3) Diabetes mellitus Assessment/Plan: -Last A1c 5.3 in 04/2016 -recheck A1C -BGM AC HS -Diabetic/low sodium diet -Novolog sliding scale Code(s): E11.9 - TYPE 2 DIABETES MELLITUS WITHOUT COMPLICATIONS Assessment/Plan see problem list
[2018-04-27] MEDS: ALBUTEROL SO4 2.5/IPRATROPIUM 0.5 INH SOL 3 ML VIAL.NEB. NEB SCH ×5 (01:00→20:27)
[2018-04-27] MEDS ORDERED: ALBUTEROL SO4 2.5/IPRATROPIUM 0.5 INH SOL 3 ML VIAL.NEB. NEB ONE ×3 (01:06→20:18)
[2018-04-27] MEDS ORDERED: ACETAMINOPHEN 325 MG TABLET (FP) PO ONE (06:16)
[2018-04-27] MEDS: INSULIN SLIDING SCALE (NOVOLOG) 1 VIAL SQ SCH ×3 (06:22→16:31)
[2018-04-27] MEDS: glipiZIDE 5 MG TABLET (FP) PO SCH (06:34)
[2018-04-27] MEDS ORDERED: PT OWN MED DRAWER 7, Y5N ONE ×5 (06:53→20:59)
[2018-04-27 09:01] LABS: BASO % 0.9 % (0-2.0); HEMATOCRIT 35.6 % (35.4-49); HEMOGLOBIN 12.2 GM/dL (11.7-16.9); LYMPH % 13.2 % (8-40); MCH 29.3 pg (25.7-33.7); MCHC 34.3 g/dl (32.0-35.9); MEAN CELL VOLUME 85.4 fl (80-96); MEAN PLT VOLUME 9.2 fl (7.5-11.1); MONO % 10.5 % (3.8-10.2); NEUT % 74.4 % (42.8-82.8); PLATELET COUNT 164 K/MM3 (134-434); RBC 4.17 M/mm3 (4.00-5.60); RDW 14.7 % (11.9-15.9); WHITE BLOOD COUNT 8.2 K/mm3 (4.0-10.0)
[2018-04-27 09:30] LABS: ANION GAP 8 MMOL/L (8-16); BLOOD UREA NITROGEN 33 mg/dL (7-18); CALCIUM 7.8 mg/dL (8.5-10.1); CHLORIDE 111 mmol/L (98-107); CHOLESTEROL 93 mg/dL (50-200); CO2 25 mmol/L (21-32); CREATININE 1.3 mg/dL (0.55-1.3); GLUCOSE,RANDOM 66 mg/dL (74-106); HDL CHOLESTEROL 36 mg/dL (40-60); POTASSIUM 3.7 mmol/L (3.5-5.1); SODIUM 144 mmol/L (136-145); TRIGLYCERIDES 73 mg/dL (0-150)
[2018-04-27] MEDS: ATORVASTATIN CA 40 MG TABLET (FP) PO SCH ×2 (10:07→21:50)
--- NOTE | 2018-04-27 10:23 | PN ---
Progress Note, Physician Chief Complaint: Chest Pain History of Present Illness: Previous notes and events reviewed awake and alert NAD denies chest pain, complain of SOB febrile earlier this AM with temp 100.6F trop elev x 2 - Current Medication List Current Medications: Active Medications Albuterol/Ipratropium (Duoneb -) 1 amp NEB RQID ON LICENSE OF [facility] Last Admin: 04/27/18 01:00 Dose: 1 amp Aspirin (Asa -) 81 mg PO DAILY ON [facility] OF [facility] Last Admin: 04/26/18 11:09 Dose: 81 mg Atorvastatin Calcium (Lipitor -) 40 mg PO HS ON [facility] OF [facility] Last Admin: 04/27/18 10:07 Dose: Not Given Carvedilol (Coreg -) 25 mg PO BID ON [facility] OF [facility] Last Admin: 04/26/18 22:14 Dose: 25 mg Enoxaparin Sodium (Lovenox -) 40 mg SQ DAILY ON [facility] OF [facility] Furosemide (Lasix -) 40 mg PO DAILY ON [facility] Last Admin: 04/26/18 11:09 Dose: 40 mg Glipizide (Glucotrol -) 5 mg PO DAILY@0700 ON [facility] OF [facility] Last Admin: 04/27/18 06:34 Dose: 5 mg Insulin Aspart (Novolog Vial Sliding Scale -) 1 vial SQ TIDAC ON LICENSE OF [facility]; Protocol Last Admin: 04/27/18 06:22 Dose: Not Given Lisinopril (Prinivil) 2.5 mg PO DAILY ON [facility] OF [facility] Last Admin: 04/26/18 11:10 Dose: 2.5 mg Tiotropium [place] (Spiriva Respimat) 1 puff IH DAILY ON LICENSE OF [facility] - Objective Vital Signs: Vital Signs Temperature 100.6 F H 04/27/18 06:00 Pulse Rate 50 L 04/27/18 06:00 Respiratory Rate 20 04/27/18 06:00 Blood Pressure 119/57 L 04/27/18 06:00 O2 Sat by Pulse Oximetry (%) 85 L 04/26/18 22:22 Constitutional: Yes: Well Nourished, No Distress, Calm Eyes: Yes: Conjunctiva Clear Cardiovascular: Yes: Regular Rate and Rhythm Respiratory: Yes: Wheezes Gastrointestinal: Yes: WNL, Normal Bowel Sounds, Soft Musculoskeletal: Yes: WNL Extremities: Yes: WNL Edema: No Integumentary: Yes: WNL Neurological: Yes: Alert, Oriented Psychiatric: Yes: Alert, Oriented Labs: CBC, BMP 04/27/18 08:30 04/27/18 08:30 INR, PTT INR 1.33 (0.83-1.09) H 04/26/18 05:20 - ....Imaging Chest X-ray: Report Reviewed Other: Report Reviewed (Echocardiogram) Problem List - Problems (1) Chest pain Code(s): R07.9 - CHEST PAIN, UNSPECIFIED Qualifiers: Chest pain type: unspecified Qualified Code(s): R07.9 - Chest pain, unspecified (2) Bronchospasm, acute Code(s): J98.01 - ACUTE BRONCHOSPASM (3) CAD (coronary artery disease) Code(s): I25.10 - ATHSCL HEART DISEASE OF [place] CORONARY ARTERY W/O ANG PCTRS (4) Chronic systolic CHF (congestive heart failure) Code(s): I50.22 - CHRONIC SYSTOLIC (CONGESTIVE) HEART FAILURE (5) Diabetes mellitus Code(s): E11.9 - TYPE 2 DIABETES MELLITUS WITHOUT COMPLICATIONS (6) Elevated troponin Code(s): R79.89 - OTHER SPECIFIED ABNORMAL FINDINGS OF BLOOD CHEMISTRY Assessment/Plan -cardiology on board -cont tele monitoring -cont lisinopril, carvedilol -BGM ACHS, ISS -blood cultures pending -pending urine collection for UA/CS -dvt ppx -albuterol neb PRN for SOB -O2 NC PRN, keep O2 sat >90% -diabetic/low Na diet
[2018-04-27] MEDS: TIOTROPIUM BROMIDE 2.5 MCG (SPIRIVA) RESPIMAT INHALER IH SCH ×2 (11:23→11:24)
[2018-04-27] MEDS: ENOXAPARIN NA (PORCINE) 40 MG/0.4 ML DISP.SYRIN SQ SCH (12:09)
[2018-04-27] MEDS ORDERED: ASPIRIN 81 MG CHEWABLE TABLETS ONE (12:51)
[2018-04-27] MEDS: LISINOPRIL 5 MG TABLET (FP) PO SCH (12:52)
[2018-04-27] MEDS: ASPIRIN 81 MG CHEWABLE TABLETS PO SCH (12:52)
[2018-04-27] MEDS: CARVEDILOL 25 MG TABLET (FP) PO SCH ×2 (12:52→21:50)
[2018-04-27] MEDS: FUROSEMIDE 40 MG TABLET (FP) PO SCH (12:52)
[2018-04-27] MEDS ORDERED: ACETAMINOPHEN 325 MG TABLET (FP) PO PRN (13:32)
--- NOTE | 2018-04-27 13:43 | PN ---
Progress Note, Physician Chief Complaint: Pt A&Ox3; OOB in chair; no chest pain, dyspnea, or palpitations. His ex-, who says she is the only one available to help him (pt's [place], and is ill), is present. History of Present Illness: The patient is a 77 year old male, with a significant past medical history of hypertension, diabetes, hyperlipidemia, CAD (s/p 4 stents) , s/p ICD ([employer], single chamber; battery replaced in 2013), who presents to the emergency department with, 2 days of chest pain. As per patient, his symptoms onset early yesterday morning while he was sitting down. He notes he believed the symptoms would resolve with relaxation but, after the symptoms persisted he called for EMS. He denies any recent shortness of breath, palpitations, or diaphoresis. He denies any recent fevers, chills, headache or dizziness. He denies any recent nausea, vomit, diarrhea or constipation. He denies any recent dysuria, frequency , urgency or hematuria. Allergies: NKDA Past surgical history: Cardiac stenting x4. Social History: Nonsmoker. Denies EtOH use and recreational drug use. Primary Care Physician: Dr. Reddy - Current Medication List Current Medications: Active Medications Acetaminophen (Tylenol -) 650 mg PO Q6H PRN PRN Reason: PAIN Albuterol/Ipratropium (Duoneb -) 1 amp NEB RQID [facility] Last Admin: 04/27/18 11:30 Dose: 1 amp Aspirin (Asa -) 81 mg PO DAILY [facility] Last Admin: 04/27/18 12:52 Dose: 81 mg Atorvastatin Calcium (Lipitor -) 40 mg PO HS [facility] Last Admin: 04/27/18 10:07 Dose: Not Given Carvedilol (Coreg -) 25 mg PO BID [facility] Last Admin: 04/27/18 12:52 Dose: 25 mg Enoxaparin Sodium (Lovenox -) 40 mg SQ DAILY [facility] Last Admin: 04/27/18 12:09 Dose: 40 mg Furosemide (Lasix -) 40 mg PO DAILY [facility] Last Admin: 04/27/18 12:52 Dose: 40 mg Glipizide (Glucotrol -) 5 mg PO DAILY@0700 [facility] Last Admin: 04/27/18 06:34 Dose: 5 mg Insulin Aspart (Novolog Vial Sliding Scale -) 1 vial SQ TIDAC [facility]; Protocol Last Admin: 04/27/18 11:26 Dose: Not Given Lisinopril (Prinivil) 2.5 mg PO DAILY [facility] Last Admin: 04/27/18 12:52 Dose: 2.5 mg Tiotropium [place] (Spiriva Respimat) 1 puff IH DAILY [facility] Last Admin: 04/27/18 11:24 Dose: Not Given - Objective Vital Signs: Vital Signs Temperature 98.0 F 04/27/18 11:00 Pulse Rate 54 L 04/27/18 11:00 Respiratory Rate 20 04/27/18 11:00 Blood Pressure 135/60 04/27/18 11:00 O2 Sat by Pulse Oximetry (%) 95 04/27/18 10:00 Constitutional: Yes: Calm Eyes: Yes: WNL HENT: Yes: WNL Neck: Yes: WNL Cardiovascular: Yes: S1, S2 (split) Respiratory: Yes: WNL Gastrointestinal: Yes: Soft ...Rectal Exam: Yes: Deferred Genitourinary: No: Anuria Breast(s): Yes: WNL Musculoskeletal: Yes: WNL Extremities: Yes: WNL Edema: No Peripheral Pulses WNL: Yes Integumentary: Yes: WNL Neurological: Yes: WNL Psychiatric: Yes: WNL Labs: CBC, BMP 04/27/18 08:30 04/27/18 08:30 INR, PTT INR 1.33 (0.83-1.09) H 04/26/18 05:20 Abnormal Lab Results 04/26/18 04/28/18 04/28/18 05:20 06:00 06:00 MCHC 31.9 L Chloride 108 H BUN 30 H Random Glucose 113 H Calcium 8.0 L Total Bilirubin 2.1 H Troponin I 0.14 H 0.11 H Total Protein 6.3 L Albumin 3.0 L 04/28/18 18:45 MCHC Chloride BUN Random Glucose Calcium Total Bilirubin Troponin I 0.08 H Total Protein Albumin - ....Imaging Other: Image Reviewed (telemetry: NSR; periods of ventricular pacing) Problem List - Problems (1) CAD (coronary artery disease) Assessment/Plan: s/p coronary stents x 4 TNI mildly elevated (no significant change from one year ago). EKG: V pacing. Code(s): I25.10 - ATHSCL HEART DISEASE OF [place] CORONARY ARTERY W/O ANG PCTRS (2) Chronic systolic CHF (congestive heart failure) Assessment/Plan: severely reduced LVEF. On Coreg, lisinopril. Add spironolactone (Cr Clearance, K+ WNL); change furosemide to prn. ICD interrogation (may be done as outpatient). F/u BUN/Cr, electrolytes, Is and Os, daily weight. Code(s): I50.22 - CHRONIC SYSTOLIC (CONGESTIVE) HEART FAILURE (3) Diabetes mellitus Code(s): E11.9 - TYPE 2 DIABETES MELLITUS WITHOUT COMPLICATIONS (4) Elevated troponin Assessment/Plan: Mildly elevated TNI; CK pending. No acute STT changes. Contributing factors of mild TNI (relatively unchanged since 04/2017) include increased demand from severe dilated cardiomyopathy. Pt is asymptomatic. From a cardiac standpoint, pt may be followed up as an outpatient (stress MIBI). Code(s): R79.89 - OTHER SPECIFIED ABNORMAL FINDINGS OF BLOOD CHEMISTRY
[2018-04-27 20:04] LABS: URINE APPEARANCE CLEAR; URINE BILIRUBIN NEGATIVE (<2.0 mg/dL); URINE COLOR LTYELLOW; URINE GLUCOSE (UA) NEGATIVE (NEGATIVE); URINE KETONE NEGATIVE (NEGATIVE); URINE LEUK ESTERASE NEGATIVE (NEGATIVE); URINE NITRITE NEGATIVE (NEGATIVE); URINE PROTEIN NEGATIVE (NEGATIVE); URINE UROBILINOGEN NEGATIVE mg/dL (0.2-1.0)
[2018-04-28] MEDS: glipiZIDE 5 MG TABLET (FP) PO SCH (06:08)
[2018-04-28] MEDS: INSULIN SLIDING SCALE (NOVOLOG) 1 VIAL SQ SCH ×3 (06:08→17:19)
[2018-04-28 06:25] LABS: HEMATOCRIT 38.3 % (35.4-49); HEMOGLOBIN 12.2 GM/dL (11.7-16.9); MCH 27.6 pg (25.7-33.7); MCHC 31.9 g/dl (32.0-35.9); MEAN CELL VOLUME 86.6 fl (80-96); MEAN PLT VOLUME 9.3 fl (7.5-11.1); PLATELET COUNT 185 K/MM3 (134-434); RBC 4.43 M/mm3 (4.00-5.60); RDW 14.8 % (11.9-15.9); WHITE BLOOD COUNT 9.3 K/mm3 (4.0-10.0)
[2018-04-28 07:01] LABS: ALK PHOS 102 U/L (45-117); ANION GAP 8 MMOL/L (8-16); BILIRUBIN,TOTAL 2.1 mg/dL (0.2-1); BLOOD UREA NITROGEN 30 mg/dL (7-18); CHLORIDE 108 mmol/L (98-107); CO2 26 mmol/L (21-32); CREATININE 1.1 mg/dL (0.55-1.3); GLUCOSE,RANDOM 113 mg/dL (74-106); POTASSIUM 4.3 mmol/L (3.5-5.1); SGOT/AST 21 U/L (15-37); SGPT/ALT 27 U/L (13-61); SODIUM 142 mmol/L (136-145); TOT PROT 6.3 g/dl (6.4-8.2)
[2018-04-28] MEDS: ALBUTEROL SO4 2.5/IPRATROPIUM 0.5 INH SOL 3 ML VIAL.NEB. NEB SCH ×4 (08:11→21:24)
--- NOTE | 2018-04-28 09:00 | PN ---
Progress Note, Physician History of Present Illness: no cp at this time ce noted borderline elevated - Current Medication List Current Medications: Active Medications Acetaminophen (Tylenol -) 650 mg PO Q6H PRN PRN Reason: PAIN Last Admin: 04/28/18 05:44 Dose: 650 mg Albuterol/Ipratropium (Duoneb -) 1 amp NEB RQID [facility] Last Admin: 04/28/18 08:11 Dose: 1 amp Aspirin (Asa -) 81 mg PO DAILY [facility] Last Admin: 04/27/18 12:52 Dose: 81 mg Atorvastatin Calcium (Lipitor -) 40 mg PO HS [facility] Last Admin: 04/27/18 21:50 Dose: 40 mg Carvedilol (Coreg -) 25 mg PO BID [facility] Last Admin: 04/27/18 21:50 Dose: 25 mg Enoxaparin Sodium (Lovenox -) 40 mg SQ DAILY [facility] Last Admin: 04/27/18 12:09 Dose: 40 mg Furosemide (Lasix -) 40 mg PO DAILY [facility] Last Admin: 04/27/18 12:52 Dose: 40 mg Glipizide (Glucotrol -) 5 mg PO DAILY@0700 [facility] Last Admin: 04/28/18 06:08 Dose: Not Given Insulin Aspart (Novolog Vial Sliding Scale -) 1 vial SQ TIDAC [facility]; Protocol Last Admin: 04/28/18 06:08 Dose: Not Given Lisinopril (Prinivil) 2.5 mg PO DAILY [facility] Last Admin: 04/27/18 12:52 Dose: 2.5 mg Tiotropium [place] (Spiriva Respimat) 1 puff IH DAILY [facility] Last Admin: 04/27/18 11:24 Dose: Not Given - Objective Vital Signs: Vital Signs Temperature 99.5 F 04/28/18 06:46 Pulse Rate 50 L 04/28/18 06:00 Respiratory Rate 18 04/28/18 06:00 Blood Pressure 121/58 L 04/28/18 06:00 O2 Sat by Pulse Oximetry (%) 98 04/27/18 21:00 Cardiovascular: Yes: Murmur, S1, S2 Respiratory: Yes: Regular, CTA Bilaterally Gastrointestinal: Yes: Normal Bowel Sounds, Soft Edema: No Labs: CBC, BMP 04/28/18 06:00 04/28/18 06:00 INR, PTT INR 1.33 (0.83-1.09) H 04/26/18 05:20 Assessment/Plan - Problems (1) Chest pain Assessment/Plan: -Cardiology consult -Echo-done and reviewed--poor lv function -Observed on tele -trops elevated-previously elevated as well -stress test Code(s): R07.9 - CHEST PAIN, UNSPECIFIED Qualifiers: Chest pain type: unspecified Qualified Code(s): R07.9 - Chest pain, unspecified (2) CAD (coronary artery disease) Assessment/Plan: -Cardiology on board -On asa + statin -stress test Code(s): I25.10 - ATHSCL HEART DISEASE OF [place] CORONARY ARTERY W/O ANG PCTRS (3) Diabetes mellitus Assessment/Plan: -Last A1c 5.3 in 04/2016 -recheck A1C -BGM AC HS -Diabetic/low sodium diet -Novolog sliding scale Code(s): E11.9 - TYPE 2 DIABETES MELLITUS WITHOUT COMPLICATIONS Assessment/Plan
[2018-04-28] MEDS ORDERED: ASPIRIN 81 MG CHEWABLE TABLETS ONE (10:00)
[2018-04-28] MEDS: TIOTROPIUM BROMIDE 2.5 MCG (SPIRIVA) RESPIMAT INHALER IH SCH (10:05)
[2018-04-28] MEDS: ENOXAPARIN NA (PORCINE) 40 MG/0.4 ML DISP.SYRIN SQ SCH (10:05)
[2018-04-28] MEDS: ASPIRIN 81 MG CHEWABLE TABLETS PO SCH (10:05)
[2018-04-28] MEDS: SPIRONOLACTONE 25 MG TABLET (FP) PO SCH (10:06)
[2018-04-28] MEDS: FUROSEMIDE 40 MG TABLET (FP) PO SCH ×2 (11:23→12:01)
[2018-04-28] MEDS: CARVEDILOL 25 MG TABLET (FP) PO SCH ×3 (11:24→22:43)
[2018-04-28] MEDS: LISINOPRIL 5 MG TABLET (FP) PO SCH ×2 (11:24→12:01)
--- NOTE | 2018-04-28 14:46 | DS ---
Physical Examination Vital Signs: Vital Signs Temperature 98.4 F 04/28/18 10:00 Pulse Rate 53 L 04/28/18 10:00 Respiratory Rate 18 04/28/18 10:00 Blood Pressure 118/64 04/28/18 10:00 O2 Sat by Pulse Oximetry (%) 98 04/28/18 10:00 Labs: CBC, BMP 04/28/18 06:00 04/28/18 06:00 Discharge Summary Reason For Visit: CHEST PAIN Current Active Problems Chest pain (Acute) Hospital Course: seen by cardiology and cleared for dc with outpatient work up Condition: Stable - Instructions Referrals: Tmamie Bustillo MD [Primary Care Provider] - 1 Week Disposition: VNS/HOME HEALTH CARE - Home Medications Comprehensive Discharge Medication List: Ambulatory Orders Aspirin 81 mg PO DAILY 07/28/12 Atorvastatin Ca [Lipitor] 40 mg PO HS 07/28/12 Furosemide [Lasix -] 40 mg PO DAILY 07/28/12 Glipizide [Glucotrol -] 5 mg PO DAILY@0700 07/28/12 Acetaminophen [Tylenol .Regular Strength -] 650 mg PO Q4H PRN #0 tablet Albuterol 0.083% Nebulizer [place] [Ventolin 0.083% Nebulizer Soln -] 1 amp NEB Q4H PRN #1 box 05/09/16 Lisinopril [Prinivil] 2.5 mg PO DAILY #30 tablet 05/09/16 Tiotropium [place] [Spiriva] 1 puff IH DAILY #1 inh 05/09/16 Carvedilol [Coreg -] 25 mg PO BID tablet 04/28/18 Spironolactone [Aldactone -] 25 mg PO DAILY #30 tablet 04/28/18
--- NOTE | 2018-04-28 16:51 | PN ---
Progress Note (short form) - Note Progress Note: ID Consult dictated OK for discharge on Ceftin 500mg po bid x 7d
[2018-04-28] MEDS ORDERED: FLU VACCINE QUAD 60 MCG/0.5 ML (MDV 18-19) IM ONE (17:22)
--- NOTE | 2018-04-28 20:20 | CONS ---
DATE OF CONSULTATION: DATE OF DICTATION: 04/28/2018 INFECTIOUS DISEASE CONSULTATION HISTORY OF PRESENT ILLNESS: The patient is a 77-year-old male who was evaluated for fever. He was admitted to the hospital April 26, 2018, with a 2-day history of chest discomfort and shortness of breath. He was admitted to the telemetry floor. His hospital course was unremarkable. He was scheduled for discharge today, however was noted to have temperature to 100.8. The patient at the present time is comfortable, he is out of bed to chair. He denies any chest pain or shortness of breath, no complaints of cough or sputum production. He denies any ill contacts. He has not received influenza vaccine this year. No significant travel. Patient lives alone at home. PAST MEDICAL HISTORY: Positive for diabetes mellitus, hypertension, hyperlipidemia, coronary artery disease, congestive heart failure, COPD. PAST SURGICAL HISTORY: Status post permanent pacemaker. ALLERGIES: No known allergies. MEDICATION: Aspirin, Lipitor, Coreg, Lasix, Glucotrol, Spiriva. SOCIAL HISTORY: Former smoker. ALLERGIES: No known allergies. LABORATORY DATA: White count 9.3, hemoglobin 38.3, platelet count 185, BUN 30, creatinine 1.1. Urinalysis negative. Blood cultures negative. Chest x-ray was read as possible air space disease right lower lobe. Chest x-ray has been repeated today. There does not appear by my read to be an infiltrate . PHYSICAL EXAMINATION: General: On exam, he is out of bed to chair. Vital signs: Temperature 97.6, blood pressure 129/65, pulse 50 regular, respirations 18 per minute. HEENT: Sclerae anicteric. Cardiovascular: Heart sounds S1, S2. Lungs: A few crepitations at the bases bilaterally. Abdomen: Soft, nontender. Extremities: Negative for edema. IMPRESSION: Low grade fever, no clear source. No obvious infiltrate on chest x-ray. Will obtain flu swab and urine legionella antigen. Empiric antibiotic coverage with Ceftin 500 mg p.o. every 12 hours for 7 days, outpatient followup. Thank you for the kind referral. GENESIS ANNE M.D. [id number]
[2018-04-28] MEDS ORDERED: ALBUTEROL SO4 2.5/IPRATROPIUM 0.5 INH SOL 3 ML VIAL.NEB. NEB ONE (21:18)
[2018-04-28] MEDS: CEFUROXIME AXETIL 500 MG TABLET PO SCH (22:43)
[2018-04-28] MEDS: ATORVASTATIN CA 40 MG TABLET (FP) PO SCH (22:55)
--- NOTE | 2018-04-29 00:55 | PN ---
Progress Note, Physician Chief Complaint: Pt A&Ox3; OOB in chair;asymptomatic. History of Present Illness: The patient is a 77 year old male, with a significant past medical history of hypertension, diabetes, hyperlipidemia, CAD (s/p 4 stents) , s/p ICD ([employer], single chamber; battery replaced in 2013), who presents to the emergency department with, 2 days of chest pain. As per patient, his symptoms onset early yesterday morning while he was sitting down. He notes he believed the symptoms would resolve with relaxation but, after the symptoms persisted he called for EMS. He denies any recent shortness of breath, palpitations, or diaphoresis. He denies any recent fevers, chills, headache or dizziness. He denies any recent nausea, vomit, diarrhea or constipation. He denies any recent dysuria, frequency , urgency or hematuria. Allergies: NKDA Past surgical history: Cardiac stenting x4. Social History: Nonsmoker. Denies EtOH use and recreational drug use. Primary Care Physician: Dr. Reddy - Current Medication List Current Medications: Active Medications Acetaminophen (Tylenol -) 650 mg PO Q6H PRN PRN Reason: PAIN Last Admin: 04/28/18 05:44 Dose: 650 mg Albuterol/Ipratropium (Duoneb -) 1 amp NEB RQID [facility] Last Admin: 04/28/18 21:24 Dose: 1 amp Aspirin (Asa -) 81 mg PO DAILY [facility] Last Admin: 04/28/18 10:05 Dose: 81 mg Atorvastatin Calcium (Lipitor -) 40 mg PO HS [facility] Last Admin: 04/28/18 22:55 Dose: 40 mg Carvedilol (Coreg -) 25 mg PO BID [facility] Last Admin: 04/28/18 22:43 Dose: 25 mg Cefuroxime Axetil (Ceftin -) 500 mg PO BID [facility] Last Admin: 04/28/18 22:43 Dose: 500 mg Enoxaparin Sodium (Lovenox -) 40 mg SQ DAILY [facility] Last Admin: 04/28/18 10:05 Dose: 40 mg Furosemide (Lasix -) 40 mg PO DAILY [facility] Last Admin: 04/28/18 11:23 Dose: 40 mg Glipizide (Glucotrol -) 5 mg PO DAILY@0700 [facility] Last Admin: 04/28/18 06:08 Dose: Not Given Insulin Aspart (Novolog Vial Sliding Scale -) 1 vial SQ TIDAC [facility]; Protocol Last Admin: 04/28/18 17:19 Dose: Not Given Lisinopril (Prinivil) 2.5 mg PO DAILY [facility] Last Admin: 04/28/18 11:24 Dose: 2.5 mg Spironolactone (Aldactone -) 25 mg PO DAILY [facility] Last Admin: 04/28/18 10:06 Dose: 25 mg Tiotropium [place] (Spiriva Respimat) 1 puff IH DAILY [facility] Last Admin: 04/28/18 10:05 Dose: 1 puff - Objective Vital Signs: Vital Signs Temperature 99.3 F 04/28/18 21:00 Pulse Rate 50 L 04/28/18 21:00 Respiratory Rate 18 04/28/18 21:00 Blood Pressure 143/70 04/28/18 21:00 O2 Sat by Pulse Oximetry (%) 95 04/28/18 21:00 Constitutional: Yes: Well Nourished, No Distress Eyes: Yes: WNL HENT: Yes: WNL Neck: Yes: WNL Cardiovascular: Yes: S2 (split) Respiratory: Yes: WNL Gastrointestinal: Yes: Soft ...Rectal Exam: Yes: Deferred Genitourinary: No: Anuria Breast(s): Yes: WNL Musculoskeletal: Yes: Muscle Weakness Extremities: Yes: WNL Edema: No Peripheral Pulses WNL: Yes Integumentary: Yes: WNL Neurological: Yes: Alert, Oriented Psychiatric: Yes: Other (anxeity) Labs: CBC, BMP 04/28/18 06:00 04/28/18 06:00 INR, PTT INR 1.33 (0.83-1.09) H 04/26/18 05:20 Abnormal Lab Results 04/26/18 04/28/18 04/28/18 05:20 06:00 06:00 MCHC 31.9 L Chloride 108 H BUN 30 H Random Glucose 113 H Calcium 8.0 L Total Bilirubin 2.1 H Troponin I 0.14 H 0.11 H Total Protein 6.3 L Albumin 3.0 L 04/28/18 18:45 MCHC Chloride BUN Random Glucose Calcium Total Bilirubin Troponin I 0.08 H Total Protein Albumin Problem List - Problems (1) CAD (coronary artery disease) Assessment/Plan: s/p coronary stents x 4 TNI mildly elevated (no significant change from one year ago). EKG: V pacing. Rec: Aggressive control of lipids (diet, exercise, statin). Nitrate (Imdur 30 mg dailly; s/l NTG prn) for chest discomfort. Control of severe systolic LV dysfunction (see "CHF"). Code(s): I25.10 - ATHSCL HEART DISEASE OF [place] CORONARY ARTERY W/O ANG PCTRS (2) Chronic systolic CHF (congestive heart failure) Assessment/Plan: severely reduced LVEF. On Coreg, lisinopril. Add spironolactone (Cr Clearance, K+ WNL). ICD interrogation (may be done as outpatient). F/u BUN/Cr, electrolytes, Is and Os, daily weight. Code(s): I50.22 - CHRONIC SYSTOLIC (CONGESTIVE) HEART FAILURE (3) Diabetes mellitus Code(s): E11.9 - TYPE 2 DIABETES MELLITUS WITHOUT COMPLICATIONS (4) Elevated troponin Assessment/Plan: Mildly elevated TNI; CK pending. No acute STT changes. Contributing factors of mild TNI (relatively unchanged since 04/2017) include increased demand from severe dilated cardiomyopathy. Pt is asymptomatic. From a cardiac standpoint, pt may be followed up as an outpatient (stress MIBI). Code(s): R79.89 - OTHER SPECIFIED ABNORMAL FINDINGS OF BLOOD CHEMISTRY (5) Atypical chest pain Assessment/Plan: Pt has felt chest discomfort off and on for months; it usually occurs while at rest, lasts a few seconds, may return a few times during the day, then not recur for weeks. Denies ches pain with exertion. TNI mildly elevated; unchanged for the past year. EKG : Ventricular pacing. Pt may be followed as outpatient (was scheduled for stress MIBI today, but ate breakfast). Addendum (18:00): Pt was asymptomatic all day until his family arrived in late afternoon to pick him up; he then told them (his brother, and his ex-) that he felt central chest pressure at rest. He is worried about returning home now because he will be alone in the house until the morning (has an aide during the day). EKG: unchanged (ventricular paced rhythm). CXR: congestive changes (severe systolic LV dysfunction). Rec: TNI now and in am. Add Imdur 30 mg daily, and s/l NTG prn. Spironolactone was started; continue furosemide. If TNI is unchanged or improved by the morning, and no arrhythmias or significant STT changes on telemetry, pt may be followed as an outpatient;will do stress MIBI 05/01/18. Code(s): R07.89 - OTHER CHEST PAIN
[2018-04-29] MEDS: glipiZIDE 5 MG TABLET (FP) PO SCH (07:00)
[2018-04-29] MEDS ORDERED: ALBUTEROL SO4 2.5/IPRATROPIUM 0.5 INH SOL 3 ML VIAL.NEB. NEB ONE (07:42)
[2018-04-29] MEDS: INSULIN SLIDING SCALE (NOVOLOG) 1 VIAL SQ SCH ×3 (07:52→16:57)
[2018-04-29] MEDS: ALBUTEROL SO4 2.5/IPRATROPIUM 0.5 INH SOL 3 ML VIAL.NEB. NEB SCH ×2 (07:56→12:06)
[2018-04-29] MEDS ORDERED: PT OWN MED DRAWER 7, Y5N ONE (08:49)
--- NOTE | 2018-04-29 09:04 | PN ---
Progress Note, Physician History of Present Illness: Patient is a 77 year old male with a past medical history of hypertension, diabetes, hyperlipidemia, h/o of [place] s/p CABG 2002, chronic systolic CHF s/p ICD , CAD (s/p 4 stents) and COPD. He presents to the ED for c/o two days of midsternal non radiating 8/10 chest pain. Patient states the chest pain began yesterday with associated shortness of breath. He tried to rest, but chest pain and shortness of breath persisted. He called then called EMS. Patient states he saw Dr. Emanuel about 2 months ago for a follow up visit. He denies any recent fevers, chills, headache or dizziness. He denies any recent travel. He is a former smoker and has quit 15 years ago, no smoking since. ER course was notable for: (1) trop 0.14 (2) ekg ventricular paced rhythm 50s (3) asa 325mg (4) chest xray: no evidence of chf, of the vessels with questionable air space opacity in the region of the right cardiophrenic angle. - Current Medication List Current Medications: Active Medications Acetaminophen (Tylenol -) 650 mg PO Q6H PRN PRN Reason: PAIN Last Admin: 04/28/18 05:44 Dose: 650 mg Albuterol/Ipratropium (Duoneb -) 1 amp NEB RQID [facility] Last Admin: 04/29/18 07:56 Dose: 1 amp Aspirin (Asa -) 81 mg PO DAILY [facility] Last Admin: 04/28/18 10:05 Dose: 81 mg Atorvastatin Calcium (Lipitor -) 40 mg PO HS [facility] Last Admin: 04/28/18 22:55 Dose: 40 mg Carvedilol (Coreg -) 25 mg PO BID [facility] Last Admin: 04/28/18 22:43 Dose: 25 mg Cefuroxime Axetil (Ceftin -) 500 mg PO BID [facility] Last Admin: 04/28/18 22:43 Dose: 500 mg Enoxaparin Sodium (Lovenox -) 40 mg SQ DAILY [facility] Last Admin: 04/28/18 10:05 Dose: 40 mg Furosemide (Lasix -) 40 mg PO DAILY [facility] Last Admin: 04/28/18 11:23 Dose: 40 mg Glipizide (Glucotrol -) 5 mg PO DAILY@0700 [facility] Last Admin: 04/29/18 07:00 Dose: 5 mg Insulin Aspart (Novolog Vial Sliding Scale -) 1 vial SQ TIDAC [facility]; Protocol Last Admin: 04/29/18 07:52 Dose: Not Given Lisinopril (Prinivil) 2.5 mg PO DAILY [facility] Last Admin: 04/28/18 11:24 Dose: 2.5 mg Spironolactone (Aldactone -) 25 mg PO DAILY [facility] Last Admin: 04/28/18 10:06 Dose: 25 mg Tiotropium [place] (Spiriva Respimat) 1 puff IH DAILY [facility] Last Admin: 04/28/18 10:05 Dose: 1 puff - Objective Vital Signs: Vital Signs Temperature 98.9 F 04/29/18 06:00 Pulse Rate 50 L 04/29/18 06:00 Respiratory Rate 20 04/29/18 06:00 Blood Pressure 126/68 04/29/18 06:00 O2 Sat by Pulse Oximetry (%) 95 04/28/18 21:00 Eyes: Yes: WNL, Conjunctiva Clear, EOM Intact HENT: Yes: WNL, Atraumatic, Normocephalic Neck: Yes: WNL, Supple, Trachea Midline Cardiovascular: Yes: WNL, Regular Rate and Rhythm Respiratory: Yes: WNL, Regular, CTA Bilaterally Gastrointestinal: Yes: WNL, Normal Bowel Sounds Genitourinary: Yes: WNL Musculoskeletal: Yes: WNL Extremities: Yes: WNL Edema: No Integumentary: Yes: WNL Neurological: Yes: WNL, Alert, Oriented ...Motor Strength: WNL Psychiatric: Yes: WNL Labs: CBC, BMP 04/28/18 06:00 04/28/18 06:00 INR, PTT INR 1.33 (0.83-1.09) H 04/26/18 05:20 Assessment/Plan - Problems (1) CAD (coronary artery disease) Assessment/Plan: s/p coronary stents x 4 TNI mildly elevated (no significant change from one year ago). EKG: V pacing. Rec: Aggressive control of lipids (diet, exercise, statin). Nitrate (Imdur 30 mg dailly; s/l NTG prn) for chest discomfort. Control of severe systolic LV dysfunction (see "CHF"). Code(s): I25.10 - ATHSCL HEART DISEASE OF [place] CORONARY ARTERY W/O ANG PCTRS (2) Chronic systolic CHF (congestive heart failure) Assessment/Plan: severely reduced LVEF. On Coreg, lisinopril. Add spironolactone (Cr Clearance, K+ WNL). ICD interrogation (may be done as outpatient). F/u BUN/Cr, electrolytes, Is and Os, daily weight. Code(s): I50.22 - CHRONIC SYSTOLIC (CONGESTIVE) HEART FAILURE (3) Diabetes mellitus Code(s): E11.9 - TYPE 2 DIABETES MELLITUS WITHOUT COMPLICATIONS (4) Elevated troponin Assessment/Plan: Mildly elevated TNI; CK pending. No acute STT changes. Contributing factors of mild TNI (relatively unchanged since 04/2017) include increased demand from severe dilated cardiomyopathy. Pt is asymptomatic. From a cardiac standpoint, pt may be followed up as an outpatient (stress MIBI). Code(s): R79.89 - OTHER SPECIFIED ABNORMAL FINDINGS OF BLOOD CHEMISTRY (5) Atypical chest pain Assessment/Plan: Pt has felt chest discomfort off and on for months; it usually occurs while at rest, lasts a few seconds, may return a few times during the day, then not recur for weeks. Denies ches pain with exertion. TNI mildly elevated; unchanged for the past year. EKG : Ventricular pacing. Pt may be followed as outpatient (was scheduled for stress MIBI today, but ate breakfast). Addendum (18:00): Pt was asymptomatic all day until his family arrived in late afternoon to pick him up; he then told them (his brother, and his ex-) that he felt central chest pressure at rest. He is worried about returning home now because he will be alone in the house until the morning (has an aide during the day). EKG: unchanged (ventricular paced rhythm). CXR: congestive changes (severe systolic LV dysfunction). Rec: TNI now and in am. Add Imdur 30 mg daily, and s/l NTG prn. Spironolactone was started; continue furosemide. If TNI is unchanged or improved by the morning, and no arrhythmias or significant STT changes on telemetry, pt may be followed as an outpatient;will do stress MIBI 05/01/18. Code(s): R07.89 - OTHER CHEST PAIN
[2018-04-29] MEDS: ENOXAPARIN NA (PORCINE) 40 MG/0.4 ML DISP.SYRIN SQ SCH (09:10)
[2018-04-29] MEDS: LISINOPRIL 5 MG TABLET (FP) PO SCH (09:10)
[2018-04-29] MEDS: TIOTROPIUM BROMIDE 2.5 MCG (SPIRIVA) RESPIMAT INHALER IH SCH (09:11)
[2018-04-29] MEDS: FUROSEMIDE 40 MG TABLET (FP) PO SCH (09:11)
[2018-04-29] MEDS: CEFUROXIME AXETIL 500 MG TABLET PO SCH ×2 (09:12→21:05)
[2018-04-29] MEDS: SPIRONOLACTONE 25 MG TABLET (FP) PO SCH (09:15)
[2018-04-29] MEDS: CARVEDILOL 25 MG TABLET (FP) PO SCH ×2 (09:16→21:04)
[2018-04-29] MEDS ORDERED: ASPIRIN 81 MG CHEWABLE TABLETS ONE (10:06)
[2018-04-29] MEDS: ASPIRIN 81 MG CHEWABLE TABLETS PO SCH (10:08)
--- NOTE | 2018-04-29 11:17 | PN ---
Progress Note, Physician History of Present Illness: c/o sob no cp at this time ce noted borderline elevated - Current Medication List Current Medications: Active Medications Acetaminophen (Tylenol -) 650 mg PO Q6H PRN PRN Reason: PAIN Last Admin: 04/28/18 05:44 Dose: 650 mg Albuterol/Ipratropium (Duoneb -) 1 amp NEB RQID [facility] Last Admin: 04/29/18 07:56 Dose: 1 amp Aspirin (Asa -) 81 mg PO DAILY [facility] Last Admin: 04/29/18 10:08 Dose: 81 mg Atorvastatin Calcium (Lipitor -) 40 mg PO HS [facility] Last Admin: 04/28/18 22:55 Dose: 40 mg Carvedilol (Coreg -) 25 mg PO BID [facility] Last Admin: 04/29/18 09:16 Dose: 25 mg Cefuroxime Axetil (Ceftin -) 500 mg PO BID [facility] Last Admin: 04/29/18 09:12 Dose: 500 mg Enoxaparin Sodium (Lovenox -) 40 mg SQ DAILY [facility] Last Admin: 04/29/18 09:10 Dose: 40 mg Furosemide (Lasix -) 40 mg PO DAILY [facility] Last Admin: 04/29/18 09:11 Dose: 40 mg Glipizide (Glucotrol -) 5 mg PO DAILY@0700 [facility] Last Admin: 04/29/18 07:00 Dose: 5 mg Insulin Aspart (Novolog Vial Sliding Scale -) 1 vial SQ TIDAC [facility]; Protocol Last Admin: 04/29/18 07:52 Dose: Not Given Lisinopril (Prinivil) 2.5 mg PO DAILY [facility] Last Admin: 04/29/18 09:10 Dose: 2.5 mg Spironolactone (Aldactone -) 25 mg PO DAILY [facility] Last Admin: 04/29/18 09:15 Dose: 25 mg Tiotropium [place] (Spiriva Respimat) 1 puff IH DAILY [facility] Last Admin: 04/29/18 09:11 Dose: 1 puff - Objective Vital Signs: Vital Signs Temperature 97.8 F 04/29/18 10:00 Pulse Rate 50 L 04/29/18 10:00 Respiratory Rate 20 04/29/18 10:00 Blood Pressure 148/78 04/29/18 10:00 O2 Sat by Pulse Oximetry (%) 95 04/29/18 09:00 Cardiovascular: Yes: Bradycardia, S1, S2 Respiratory: Yes: Diminished, Rhonchi Gastrointestinal: Yes: Normal Bowel Sounds, Soft Labs: CBC, BMP 04/28/18 06:00 04/28/18 06:00 INR, PTT INR 1.33 (0.83-1.09) H 04/26/18 05:20 Assessment/Plan - Problems (1) Chest pain Assessment/Plan: -Cardiology consult -Echo-done and reviewed--poor lv function -Observed on tele -trops elevated-previously elevated as well -stress test as outpatient per cardio Code(s): R07.9 - CHEST PAIN, UNSPECIFIED Qualifiers: Chest pain type: unspecified Qualified Code(s): R07.9 - Chest pain, unspecified (2) CAD (coronary artery disease) Assessment/Plan: -Cardiology on board -On asa + statin -stress test Code(s): I25.10 - ATHSCL HEART DISEASE OF [place] CORONARY ARTERY W/O ANG PCTRS (3) Diabetes mellitus Assessment/Plan: -Last A1c 5.3 in 04/2016 -recheck A1C -BGM AC HS -Diabetic/low sodium diet -Novolog sliding scale Code(s): E11.9 - TYPE 2 DIABETES MELLITUS WITHOUT COMPLICATIONS (4) Dyspnea--COPD/CHF Assessment/Plan: -CxR -Pulm Consult -on nebs and lasix (5) Bradycardia Assessment/Plan: -Ekg -Monitor rate--pt on coreg
[2018-04-29] MEDS ORDERED: FUROSEMIDE 40 MG/4 ML INJECTABLE VIAL IVPUSH ONE (12:25)
--- NOTE | 2018-04-29 12:26 | PN ---
Progress Note (short form) - Note Progress Note: PULMONARY CONSULTATION DICTATED 04/29/18 IMP DYSPNEA ACUTE ON CHRONIC CHF SEVERE LV DYSFUNCTION S/P ICD PULMONARY HTN CHEST PAIN ASHD S/P CABG,S/P STENTS HTN DM + TROPONIN PLAN IV LASIX O2 INHALED BRONCHODILATORS CHEST X-RAY DAILY WT TREND TROPONIN MONITOR [place] Problem List - Problems (1) Acute on chronic systolic (congestive) heart failure Code(s): I50.23 - ACUTE ON CHRONIC SYSTOLIC (CONGESTIVE) HEART FAILURE (2) Chest pain Code(s): R07.9 - CHEST PAIN, UNSPECIFIED Qualifiers: Chest pain type: unspecified Qualified Code(s): R07.9 - Chest pain, unspecified (3) CAD (coronary artery disease) Code(s): I25.10 - ATHSCL HEART DISEASE OF [place] CORONARY ARTERY W/O ANG PCTRS (4) Chronic systolic CHF (congestive heart failure) Code(s): I50.22 - CHRONIC SYSTOLIC (CONGESTIVE) HEART FAILURE (5) Diabetes mellitus Code(s): E11.9 - TYPE 2 DIABETES MELLITUS WITHOUT COMPLICATIONS (6) Fever Code(s): R50.9 - FEVER, UNSPECIFIED (7) Hx of CABG Code(s): Z95.1 - PRESENCE OF AORTOCORONARY BYPASS GRAFT (8) Hyperlipidemia Code(s): E78.5 - HYPERLIPIDEMIA, UNSPECIFIED (9) Hypertension Code(s): I10 - ESSENTIAL (PRIMARY) HYPERTENSION (10) ICD (implantable cardioverter-defibrillator) malfunction Code(s): T82.9XXA - UNSP COMP OF CARDIAC AND VASCULAR PROSTH DEV/GRFT, INIT
--- NOTE | 2018-04-29 13:48 | CONS ---
PULMONARY CONSULTATION DATE OF CONSULTATION: 04/29/2018 REFERRING PHYSICIAN: Gordon Reddy MD HISTORY OF PRESENT ILLNESS: The patient is a 77-year-old, male with extensive past medical history, which includes diabetes, ASHD, status post coronary bypass graft, status post ICD, congestive heart failure, COPD, hypertension, hyperlipidemia, admitted to [facility] on April 26, 2018, secondary to a 2-day history of chest discomfort and shortness of breath. On admission, the patient is felt to have CHF. He was placed on Aldactone, as well as Lasix. Hospitalization was essentially unremarkable, until April 28 when he was noted to have a fever to 100.8. He was evaluated by Dr. Cortes from Infectious Disease and placed on Ceftin. Patient had chest x-ray performed which revealed evidence of bilateral pulmonary vascular congestion. Patient denies any cough or hemoptysis at this time, denies any chest pain at this time. PAST MEDICAL HISTORY: Again, includes ASHD, status post coronary bypass graft, status post stents, CHF, status post ICD, COPD, hyperlipidemia, diabetes, and hypertension. REVIEW OF SYSTEMS: No orthopnea. Positive dyspnea on exertion. No chest pain at this time. No hemoptysis. No abdominal pain. No lower extremity edema. CURRENT MEDICATIONS: Include Tylenol, Prinivil, Ceftin, Lovenox, Spiriva, DuoNeb, Coreg, Lipitor, Lasix, Aldactone, aspirin, and Glucotrol. SOCIAL HISTORY: History of tobacco use; quit years ago. No occupational exposures. Born in [place]. Moved to the [facility] many years ago. PHYSICAL EXAMINATION: General: The patient is a well-developed, well-nourished male, awake, alert, in no acute distress. Vital Signs: Temperature is 97.8, blood pressure is 148/78, respiratory rate is 20, O2 saturation 95% on 2 L. HEENT: Exam is normocephalic, atraumatic. Neck: Supple. Heart: Regular S1 and S2. Chest: bibasilar crackles. Abdomen: Soft. Bowel sounds are positive. Extremities: No cyanosis, edema. LABORATORIES: Troponin 0.08. WBC is 9.3, hemoglobin of 12.2, hematocrit 38.3, with a platelet count of 185. Chemistries: BUN is 30, creatinine 1.1. Chest x-ray: Cardiomegaly, increased pulmonary vascular congestion. Echocardiogram reveals dilated left ventricle, left atrium dilated, right atrium dilated, left ventricular systolic function severely reduced, moderate aortic sclerosis, right ventricular pressure is mildly elevated at 30-40 mmHg. IMPRESSION: 1. Dyspnea secondary to acute on chronic congestive heart failure. 2. Atherosclerotic heart disease, status post coronary artery bypass graft, status post stents. 3. Cardiomyopathy, severe left ventricular dysfunction, status post implantable cardioverter-defibrillator. 4. Chronic obstructive pulmonary disease. 5. Hyperlipidemia. 6. Diabetes. 7. Hypertension. 8. + Troponin PLAN: Diuretics. Supplemental O2. Inhaled bronchodilators p.r.n. Chest ct further evaluate pulmonary parenchymal disease, to rule out possible underlying pneumonia. . Daily weights. trend troponins. TRE GATICA M.D. [id number] MTDD
[2018-04-29] MEDS: ALBUTEROL SO4 0.083% IH SOL 2.5 MG/3 ML VIAL.NEB. NEB PRN (20:52)
[2018-04-29] MEDS: ATORVASTATIN CA 40 MG TABLET (FP) PO SCH (21:04)
[2018-04-30] MEDS: INSULIN SLIDING SCALE (NOVOLOG) 1 VIAL SQ SCH ×3 (06:06→21:01)
[2018-04-30] MEDS: ALBUTEROL SO4 0.083% IH SOL 2.5 MG/3 ML VIAL.NEB. NEB PRN ×2 (07:44→20:47)
--- NOTE | 2018-04-30 08:42 | EKG ---
Test Reason : Blood Pressure : / mmHG Vent. Rate : 060 BPM Atrial Rate : 069 BPM P-R Int : 000 ms QRS Dur : 240 ms QT Int : 572 ms P-R-T Axes : 000 -59 103 degrees QTc Int : 572 ms SINUS RHYTHM WITH COMPLETE HEART BLOCK AND Ventricular-paced rhythm WITH FREQUENT and consecutive PREMATURE VENTRICULAR COMPLEXES ABNORMAL ECG WHEN COMPARED WITH ECG OF 28-APR-2018 17:04, PREMATURE VENTRICULAR COMPLEXES ARE NOW PRESENT VENT. RATE HAS INCREASED BY 10 BPM Confirmed by PREETHI RICKS, DAGOBERTO ([id number]) on 04/30/2018 8:41:56 AM Referred By: Mauro YANEZ Confirmed By:DAGOBERTO ORO MD
--- NOTE | 2018-04-30 08:42 | EKG ---
Test Reason : Blood Pressure : / mmHG Vent. Rate : 050 BPM Atrial Rate : 064 BPM P-R Int : 000 ms QRS Dur : 166 ms QT Int : 558 ms P-R-T Axes : 000 -57 112 degrees QTc Int : 508 ms SINUS RHYTHM WITH COMPLETE HEART BLOCK AND Ventricular-paced rhythm ABNORMAL ECG WHEN COMPARED WITH ECG OF 26-APR-2018 03:57, SINUS RHYTHM IS NOW WITH COMPLETE HEART BLOCK Confirmed by PREETHI RICKS, DAGOBERTO ([id number]) on 04/30/2018 8:42:36 AM Referred By: Confirmed By:DAGOBERTO ORO MD
--- NOTE | 2018-04-30 08:54 | PN ---
Progress Note, Physician History of Present Illness: Patient is a 77 year old male with a past medical history of hypertension, diabetes, hyperlipidemia, h/o of [place] s/p CABG 2002, chronic systolic CHF s/p ICD , CAD (s/p 4 stents) and COPD. He presents to the ED for c/o two days of midsternal non radiating 8/10 chest pain. Patient states the chest pain began yesterday with associated shortness of breath. He tried to rest, but chest pain and shortness of breath persisted. He called then called EMS. Patient states he saw Dr. Emanuel about 2 months ago for a follow up visit. He denies any recent fevers, chills, headache or dizziness. He denies any recent travel. He is a former smoker and has quit 15 years ago, no smoking since. ER course was notable for: (1) trop 0.14 (2) ekg ventricular paced rhythm 50s (3) asa 325mg (4) chest xray: no evidence of chf, of the vessels with questionable air space opacity in the region of the right cardiophrenic angle. - Current Medication List Current Medications: Active Medications Acetaminophen (Tylenol -) 650 mg PO Q6H PRN PRN Reason: PAIN Last Admin: 04/28/18 05:44 Dose: 650 mg Albuterol Sulfate (Ventolin 0.083% Nebulizer Soln -) 1 amp NEB Q4H PRN PRN Reason: SHORT OF BREATH/WHEEZING Last Admin: 04/30/18 07:44 Dose: 1 amp Aspirin (Asa -) 81 mg PO DAILY [facility] Last Admin: 04/29/18 10:08 Dose: 81 mg Atorvastatin Calcium (Lipitor -) 40 mg PO HS [facility] Last Admin: 04/29/18 21:04 Dose: 40 mg Carvedilol (Coreg -) 25 mg PO BID [facility] Last Admin: 04/29/18 21:04 Dose: 25 mg Cefuroxime Axetil (Ceftin -) 500 mg PO BID [facility] Last Admin: 04/29/18 21:05 Dose: 500 mg Enoxaparin Sodium (Lovenox -) 40 mg SQ DAILY [facility] Last Admin: 04/29/18 09:10 Dose: 40 mg Furosemide (Lasix -) 40 mg PO DAILY [facility] Last Admin: 04/29/18 09:11 Dose: 40 mg Glipizide (Glucotrol -) 5 mg PO DAILY@0700 [facility] Last Admin: 04/29/18 07:00 Dose: 5 mg Insulin Aspart (Novolog Vial Sliding Scale -) 1 vial SQ TIDAC [facility]; Protocol Last Admin: 04/30/18 06:06 Dose: Not Given Lisinopril (Prinivil) 2.5 mg PO DAILY [facility] Last Admin: 04/29/18 09:10 Dose: 2.5 mg Spironolactone (Aldactone -) 25 mg PO DAILY [facility] Last Admin: 04/29/18 09:15 Dose: 25 mg Tiotropium [place] (Spiriva Respimat) 1 puff IH DAILY [facility] Last Admin: 04/29/18 09:11 Dose: 1 puff - Objective Vital Signs: Vital Signs Temperature 97.8 F 04/30/18 06:00 Pulse Rate 50 L 04/30/18 06:00 Respiratory Rate 20 04/30/18 06:00 Blood Pressure 126/74 04/30/18 06:00 O2 Sat by Pulse Oximetry (%) 95 04/29/18 21:00 Eyes: Yes: WNL, Conjunctiva Clear, EOM Intact HENT: Yes: WNL, Atraumatic, Normocephalic Neck: Yes: WNL, Supple, Trachea Midline Cardiovascular: Yes: WNL, Regular Rate and Rhythm Respiratory: Yes: WNL, Regular, CTA Bilaterally Gastrointestinal: Yes: WNL, Normal Bowel Sounds Genitourinary: Yes: WNL Musculoskeletal: Yes: WNL Extremities: Yes: WNL Edema: No Integumentary: Yes: WNL Neurological: Yes: WNL, Alert, Oriented ...Motor Strength: WNL Psychiatric: Yes: WNL Labs: CBC, BMP 04/28/18 06:00 04/28/18 06:00 INR, PTT INR 1.33 (0.83-1.09) H 04/26/18 05:20 Assessment/Plan - Problems (1) CAD (coronary artery disease) Assessment/Plan: s/p coronary stents x 4 TNI mildly elevated (no significant change from one year ago). EKG: V pacing. Rec: Aggressive control of lipids (diet, exercise, statin). Nitrate (Imdur 30 mg dailly; s/l NTG prn) for chest discomfort. Control of severe systolic LV dysfunction (see "CHF"). Code(s): I25.10 - ATHSCL HEART DISEASE OF [place] CORONARY ARTERY W/O ANG PCTRS (2) Chronic systolic CHF (congestive heart failure) Assessment/Plan: severely reduced LVEF. On Coreg, lisinopril. Add spironolactone (Cr Clearance, K+ WNL). ICD interrogation (may be done as outpatient). F/u BUN/Cr, electrolytes, Is and Os, daily weight. Code(s): I50.22 - CHRONIC SYSTOLIC (CONGESTIVE) HEART FAILURE (3) Diabetes mellitus Code(s): E11.9 - TYPE 2 DIABETES MELLITUS WITHOUT COMPLICATIONS (4) Elevated troponin Assessment/Plan: Mildly elevated TNI; CK pending. No acute STT changes. Contributing factors of mild TNI (relatively unchanged since 04/2017) include increased demand from severe dilated cardiomyopathy. Pt is asymptomatic. From a cardiac standpoint, pt may be followed up as an outpatient (stress MIBI). Code(s): R79.89 - OTHER SPECIFIED ABNORMAL FINDINGS OF BLOOD CHEMISTRY (5) Atypical chest pain Assessment/Plan: Pt has felt chest discomfort off and on for months; it usually occurs while at rest, lasts a few seconds, may return a few times during the day, then not recur for weeks. Denies ches pain with exertion. TNI mildly elevated; unchanged for the past year. EKG : Ventricular pacing. Pt may be followed as outpatient (was scheduled for stress MIBI today, but ate breakfast). Addendum (18:00): Pt was asymptomatic all day until his family arrived in late afternoon to pick him up; he then told them (his brother, and his ex-) that he felt central chest pressure at rest. He is worried about returning home now because he will be alone in the house until the morning (has an aide during the day). EKG: unchanged (ventricular paced rhythm). CXR: congestive changes (severe systolic LV dysfunction). Rec: TNI now and in am. Add Imdur 30 mg daily, and s/l NTG prn. Spironolactone was started; continue furosemide. If TNI is unchanged or improved by the morning, and no arrhythmias or significant STT changes on telemetry, pt may be followed as an outpatient;will do stress MIBI 05/01/18. Code(s): R07.89 - OTHER CHEST PAIN
[2018-04-30] MEDS ORDERED: PT OWN MED DRAWER 7, Y5N ONE ×2 (09:44→10:09)
[2018-04-30] MEDS: glipiZIDE 5 MG TABLET (FP) PO SCH (10:05)
[2018-04-30] MEDS: ASPIRIN 81 MG CHEWABLE TABLETS PO SCH (10:06)
[2018-04-30] MEDS: SPIRONOLACTONE 25 MG TABLET (FP) PO SCH (10:07)
[2018-04-30] MEDS: CEFUROXIME AXETIL 500 MG TABLET PO SCH ×2 (10:07→21:13)
[2018-04-30] MEDS: ENOXAPARIN NA (PORCINE) 40 MG/0.4 ML DISP.SYRIN SQ SCH (10:08)
[2018-04-30] MEDS: LISINOPRIL 5 MG TABLET (FP) PO SCH (10:08)
[2018-04-30] MEDS: CARVEDILOL 25 MG TABLET (FP) PO SCH ×2 (10:08→21:19)
[2018-04-30] MEDS: TIOTROPIUM BROMIDE 2.5 MCG (SPIRIVA) RESPIMAT INHALER IH SCH (10:10)
[2018-04-30] MEDS ORDERED: FUROSEMIDE 40 MG/4 ML INJECTABLE VIAL IVPUSH ONE (10:12)
[2018-04-30 10:15] LABS: ALBUMIN 2.8 g/dl (3.4-5.0); ALK PHOS 92 U/L (45-117); ANION GAP 5 MMOL/L (8-16); BILIRUBIN,TOTAL 1.8 mg/dL (0.2-1); BLOOD UREA NITROGEN 24 mg/dL (7-18); CHLORIDE 108 mmol/L (98-107); CO2 29 mmol/L (21-32); GLUCOSE,RANDOM 92 mg/dL (74-106); POTASSIUM 3.7 mmol/L (3.5-5.1); SGOT/AST 23 U/L (15-37); SGPT/ALT 28 U/L (13-61); SODIUM 142 mmol/L (136-145); TOT PROT 6.1 g/dl (6.4-8.2)
[2018-04-30] MEDS: FUROSEMIDE 40 MG TABLET (FP) PO SCH (11:06)
--- NOTE | 2018-04-30 11:21 | PN ---
Progress Note, Physician History of Present Illness: pulmonary alert,feeling better,less dyspneic - Current Medication List Current Medications: Active Medications Acetaminophen (Tylenol -) 650 mg PO Q6H PRN PRN Reason: PAIN Last Admin: 04/28/18 05:44 Dose: 650 mg Albuterol Sulfate (Ventolin 0.083% Nebulizer Soln -) 1 amp NEB Q4H PRN PRN Reason: SHORT OF BREATH/WHEEZING Last Admin: 04/30/18 07:44 Dose: 1 amp Aspirin (Asa -) 81 mg PO DAILY [facility] Last Admin: 04/30/18 10:06 Dose: 81 mg Atorvastatin Calcium (Lipitor -) 40 mg PO HS [facility] Last Admin: 04/29/18 21:04 Dose: 40 mg Carvedilol (Coreg -) 25 mg PO BID [facility] Last Admin: 04/30/18 10:08 Dose: 25 mg Cefuroxime Axetil (Ceftin -) 500 mg PO BID [facility] Last Admin: 04/30/18 10:07 Dose: 500 mg Enoxaparin Sodium (Lovenox -) 40 mg SQ DAILY [facility] Last Admin: 04/30/18 10:08 Dose: 40 mg Furosemide (Lasix -) 40 mg PO DAILY [facility] Last Admin: 04/30/18 11:06 Dose: Not Given Glipizide (Glucotrol -) 5 mg PO DAILY@0700 [facility] Last Admin: 04/30/18 10:05 Dose: Not Given Insulin Aspart (Novolog Vial Sliding Scale -) 1 vial SQ TIDAC [facility]; Protocol Last Admin: 04/30/18 06:06 Dose: Not Given Lisinopril (Prinivil) 2.5 mg PO DAILY [facility] Last Admin: 04/30/18 10:08 Dose: 2.5 mg Spironolactone (Aldactone -) 25 mg PO DAILY [facility] Last Admin: 04/30/18 10:07 Dose: 25 mg Tiotropium [place] (Spiriva Respimat) 1 puff IH DAILY [facility] Last Admin: 04/30/18 10:10 Dose: 1 puff - Objective Vital Signs: Vital Signs Temperature 97.8 F 04/30/18 06:00 Pulse Rate 50 L 04/30/18 06:00 Respiratory Rate 20 04/30/18 09:00 Blood Pressure 126/74 04/30/18 06:00 O2 Sat by Pulse Oximetry (%) 95 01/13/19 09:00 Constitutional: Yes: Well Nourished, Calm Eyes: Yes: WNL HENT: Yes: WNL Neck: Yes: WNL Cardiovascular: Yes: Regular Rate and Rhythm, S1, S2 Respiratory: Yes: Rales (bibasilar rales) Gastrointestinal: Yes: Normal Bowel Sounds, Soft Extremities: Yes: WNL Edema: No Labs: CBC, BMP 04/30/18 09:30 INR, PTT Problem List - Problems (1) Acute on chronic systolic (congestive) heart failure Code(s): I50.23 - ACUTE ON CHRONIC SYSTOLIC (CONGESTIVE) HEART FAILURE (2) Chest pain Code(s): R07.9 - CHEST PAIN, UNSPECIFIED Qualifiers: Chest pain type: unspecified Qualified Code(s): R07.9 - Chest pain, unspecified (3) CAD (coronary artery disease) Code(s): I25.10 - ATHSCL HEART DISEASE OF [place] CORONARY ARTERY W/O ANG PCTRS (4) Chronic systolic CHF (congestive heart failure) Code(s): I50.22 - CHRONIC SYSTOLIC (CONGESTIVE) HEART FAILURE (5) Diabetes mellitus Code(s): E11.9 - TYPE 2 DIABETES MELLITUS WITHOUT COMPLICATIONS (6) Fever Code(s): R50.9 - FEVER, UNSPECIFIED (7) Hx of CABG Code(s): Z95.1 - PRESENCE OF AORTOCORONARY BYPASS GRAFT (8) Hyperlipidemia Code(s): E78.5 - HYPERLIPIDEMIA, UNSPECIFIED (9) Hypertension Code(s): I10 - ESSENTIAL (PRIMARY) HYPERTENSION (10) ICD (implantable cardioverter-defibrillator) malfunction Code(s): T82.9XXA - UNSP COMP OF CARDIAC AND VASCULAR PROSTH DEV/GRFT, INIT Assessment/Plan IMP DYSPNEA IMPROVING ACUTE ON CHRONIC CHF SEVERE LV DYSFUNCTION S/P ICD PULMONARY HTN CHEST PAIN ASHD S/P CABG,S/P STENTS HTN DM + TROPONIN PLAN LASIX O2 INHALED BRONCHODILATORS CHEST X-RAY DAILY WT TREND TROPONIN MONITOR [place] Problem List - Problems (1) Acute on chronic systolic (congestive) heart failure Code(s): I50.23 - ACUTE ON CHRONIC SYSTOLIC (CONGESTIVE) HEART FAILURE (2) Chest pain Code(s): R07.9 - CHEST PAIN, UNSPECIFIED Qualifiers: Chest pain type: unspecified Qualified Code(s): R07.9 - Chest pain, unspecified (3) CAD (coronary artery disease) Code(s): I25.10 - ATHSCL HEART DISEASE OF [place] CORONARY ARTERY W/O ANG PCTRS (4) Chronic systolic CHF (congestive heart failure) Code(s): I50.22 - CHRONIC SYSTOLIC (CONGESTIVE) HEART FAILURE (5) Diabetes mellitus Code(s): E11.9 - TYPE 2 DIABETES MELLITUS WITHOUT COMPLICATIONS (6) Fever Code(s): R50.9 - FEVER, UNSPECIFIED (7) Hx of CABG Code(s): Z95.1 - PRESENCE OF AORTOCORONARY BYPASS GRAFT (8) Hyperlipidemia Code(s): E78.5 - HYPERLIPIDEMIA, UNSPECIFIED (9) Hypertension Code(s): I10 - ESSENTIAL (PRIMARY) HYPERTENSION (10) ICD (implantable cardioverter-defibrillator) malfunction Code(s): T82.9XXA - UNSP COMP OF CARDIAC AND VASCULAR PROSTH DEV/GRFT, INIT
[2018-04-30] MEDS ORDERED: POTASSIUM CHLORIDE TABS 20 MEQ TABLET.ER (FP) PO ONE (11:31)
--- NOTE | 2018-04-30 11:33 | PN ---
Progress Note, Physician History of Present Illness: c/o sob--better no cp at this time ce noted borderline elevated - Current Medication List Current Medications: Active Medications Acetaminophen (Tylenol -) 650 mg PO Q6H PRN PRN Reason: PAIN Last Admin: 04/28/18 05:44 Dose: 650 mg Albuterol Sulfate (Ventolin 0.083% Nebulizer Soln -) 1 amp NEB Q4H PRN PRN Reason: SHORT OF BREATH/WHEEZING Last Admin: 04/30/18 07:44 Dose: 1 amp Aspirin (Asa -) 81 mg PO DAILY [facility] Last Admin: 04/30/18 10:06 Dose: 81 mg Atorvastatin Calcium (Lipitor -) 40 mg PO HS [facility] Last Admin: 04/29/18 21:04 Dose: 40 mg Carvedilol (Coreg -) 25 mg PO BID [facility] Last Admin: 04/30/18 10:08 Dose: 25 mg Cefuroxime Axetil (Ceftin -) 500 mg PO BID [facility] Last Admin: 04/30/18 10:07 Dose: 500 mg Enoxaparin Sodium (Lovenox -) 40 mg SQ DAILY [facility] Last Admin: 04/30/18 10:08 Dose: 40 mg Furosemide (Lasix -) 40 mg PO DAILY [facility] Last Admin: 04/30/18 11:06 Dose: Not Given Glipizide (Glucotrol -) 5 mg PO DAILY@0700 [facility] Last Admin: 04/30/18 10:05 Dose: Not Given Insulin Aspart (Novolog Vial Sliding Scale -) 1 vial SQ TIDAC [facility]; Protocol Last Admin: 04/30/18 06:06 Dose: Not Given Lisinopril (Prinivil) 2.5 mg PO DAILY [facility] Last Admin: 04/30/18 10:08 Dose: 2.5 mg Spironolactone (Aldactone -) 25 mg PO DAILY [facility] Last Admin: 04/30/18 10:07 Dose: 25 mg Tiotropium [place] (Spiriva Respimat) 1 puff IH DAILY [facility] Last Admin: 04/30/18 10:10 Dose: 1 puff - Objective Vital Signs: Vital Signs Temperature 97.8 F 04/30/18 06:00 Pulse Rate 50 L 04/30/18 06:00 Respiratory Rate 20 04/30/18 09:00 Blood Pressure 126/74 04/30/18 06:00 O2 Sat by Pulse Oximetry (%) 95 04/30/18 09:00 Cardiovascular: Yes: S1, S2 Respiratory: Yes: Rales (at the bases) Labs: CBC, BMP 04/28/18 06:00 04/30/18 09:30 INR, PTT INR 1.33 (0.83-1.09) H 04/26/18 05:20 Assessment/Plan - Problems (1) Chest pain Assessment/Plan: -Cardiology consult -Echo-done and reviewed--poor lv function -Observed on tele -trops elevated-previously elevated as well -stress test as outpatient per cardio Code(s): R07.9 - CHEST PAIN, UNSPECIFIED Qualifiers: Chest pain type: unspecified Qualified Code(s): R07.9 - Chest pain, unspecified (2) CAD (coronary artery disease) Assessment/Plan: -Cardiology on board -On asa + statin -stress test Code(s): I25.10 - ATHSCL HEART DISEASE OF [place] CORONARY ARTERY W/O ANG PCTRS (3) Diabetes mellitus Assessment/Plan: -Last A1c 5.3 in 04/2016 -recheck A1C -BGM AC HS -Diabetic/low sodium diet -Novolog sliding scale Code(s): E11.9 - TYPE 2 DIABETES MELLITUS WITHOUT COMPLICATIONS (4) Dyspnea--COPD/CHF Assessment/Plan: -CxR -Pulm Consult -on nebs and -lasix ivp -ct (5) Bradycardia Assessment/Plan: -Ekg -Monitor rate--pt on coreg
[2018-04-30] MEDS: ATORVASTATIN CA 40 MG TABLET (FP) PO SCH ×2 (21:13→21:15)
[2018-05-01] MEDS: INSULIN SLIDING SCALE (NOVOLOG) 1 VIAL SQ SCH ×3 (06:01→17:35)
[2018-05-01 06:54] LABS: ANION GAP 7 MMOL/L (8-16); BLOOD UREA NITROGEN 24 mg/dL (7-18); CALCIUM 8.5 mg/dL (8.5-10.1); CHLORIDE 107 mmol/L (98-107); CO2 28 mmol/L (21-32); CREATININE 0.9 mg/dL (0.55-1.3); GLUCOSE,RANDOM 91 mg/dL (74-106); POTASSIUM 4.1 mmol/L (3.5-5.1); SODIUM 142 mmol/L (136-145)
[2018-05-01] MEDS: ENOXAPARIN NA (PORCINE) 40 MG/0.4 ML DISP.SYRIN SQ SCH (09:43)
[2018-05-01] MEDS: glipiZIDE 5 MG TABLET (FP) PO SCH (09:43)
[2018-05-01] MEDS: CARVEDILOL 25 MG TABLET (FP) PO SCH ×2 (09:44→22:21)
[2018-05-01] MEDS: LISINOPRIL 5 MG TABLET (FP) PO SCH (09:44)
[2018-05-01] MEDS: SPIRONOLACTONE 25 MG TABLET (FP) PO SCH (09:45)
[2018-05-01] MEDS ORDERED: ASPIRIN 81 MG CHEWABLE TABLETS ONE (09:47)
[2018-05-01] MEDS: ASPIRIN 81 MG CHEWABLE TABLETS PO SCH (09:47)
[2018-05-01] MEDS: CEFUROXIME AXETIL 500 MG TABLET PO SCH ×2 (09:49→22:21)
[2018-05-01] MEDS: FUROSEMIDE 40 MG TABLET (FP) PO SCH (09:50)
[2018-05-01] MEDS: TIOTROPIUM BROMIDE 2.5 MCG (SPIRIVA) RESPIMAT INHALER IH SCH (09:51)
--- NOTE | 2018-05-01 11:05 | PN ---
Progress Note, Physician Chief Complaint: no chest pain says his breathing is better , no sob awaiting to go home awaiting chest CT report and troponin - Current Medication List Current Medications: Active Medications Acetaminophen (Tylenol -) 650 mg PO Q6H PRN PRN Reason: PAIN Last Admin: 04/28/18 05:44 Dose: 650 mg Albuterol Sulfate (Ventolin 0.083% Nebulizer Soln -) 1 amp NEB Q4H PRN PRN Reason: SHORT OF BREATH/WHEEZING Last Admin: 04/30/18 20:47 Dose: 1 amp Aspirin (Asa -) 81 mg PO DAILY [facility] Last Admin: 05/01/18 09:47 Dose: 81 mg Atorvastatin Calcium (Lipitor -) 40 mg PO HS [facility] Last Admin: 04/30/18 21:15 Dose: Not Given Carvedilol (Coreg -) 25 mg PO BID [facility] Last Admin: 05/01/18 09:44 Dose: 25 mg Cefuroxime Axetil (Ceftin -) 500 mg PO BID [facility] Last Admin: 05/01/18 09:49 Dose: 500 mg Enoxaparin Sodium (Lovenox -) 40 mg SQ DAILY [facility] Last Admin: 05/01/18 09:43 Dose: 40 mg Furosemide (Lasix -) 40 mg PO DAILY [facility] Last Admin: 05/01/18 09:50 Dose: Not Given Glipizide (Glucotrol -) 5 mg PO DAILY@0700 [facility] Last Admin: 05/01/18 09:43 Dose: Not Given Insulin Aspart (Novolog Vial Sliding Scale -) 1 vial SQ TIDAC [facility]; Protocol Last Admin: 05/01/18 06:01 Dose: Not Given Lisinopril (Prinivil) 2.5 mg PO DAILY [facility] Last Admin: 05/01/18 09:44 Dose: 2.5 mg Spironolactone (Aldactone -) 25 mg PO DAILY [facility] Last Admin: 05/01/18 09:45 Dose: 25 mg Tiotropium [place] (Spiriva Respimat) 1 puff IH DAILY [facility] Last Admin: 05/01/18 09:51 Dose: 1 puff - Objective Vital Signs: Vital Signs Temperature 98.3 F 05/01/18 09:00 Pulse Rate 50 L 05/01/18 09:00 Respiratory Rate 18 05/01/18 09:00 Blood Pressure 157/64 05/01/18 09:00 O2 Sat by Pulse Oximetry (%) 98 05/01/18 09:00 Constitutional: Yes: Calm Neck: Yes: Trachea Midline Cardiovascular: Yes: Regular Rate and Rhythm, S1, S2 Respiratory: Yes: CTA Bilaterally, Diminished (in bases,) Gastrointestinal: Yes: Normal Bowel Sounds, Soft Edema: No Neurological: Yes: Alert, Oriented Labs: CBC, BMP 04/28/18 06:00 05/01/18 05:00 INR, PTT INR 1.33 (0.83-1.09) H 04/26/18 05:20 Problem List - Problems (1) Acute on chronic systolic (congestive) heart failure Assessment/Plan: improved on po lasix on aldactone and acei Code(s): I50.23 - ACUTE ON CHRONIC SYSTOLIC (CONGESTIVE) HEART FAILURE (2) Atypical chest pain Code(s): R07.89 - OTHER CHEST PAIN (3) CAD (coronary artery disease) Assessment/Plan: asa, statin and coreg stress test as outpatient Code(s): I25.10 - ATHSCL HEART DISEASE OF [place] CORONARY ARTERY W/O ANG PCTRS (4) Diabetes mellitus Assessment/Plan: hgba1c 6.0 oral hypoglycemic meds Code(s): E11.9 - TYPE 2 DIABETES MELLITUS WITHOUT COMPLICATIONS Qualifiers: Diabetes mellitus type: type 2
[2018-05-01] MEDS ORDERED: FUROSEMIDE 40 MG/4 ML INJECTABLE VIAL IVPUSH ONE (11:53)
--- NOTE | 2018-05-01 14:37 | PN ---
Progress Note, Physician History of Present Illness: Patient is a 77 year old male with a past medical history of hypertension, diabetes, hyperlipidemia, h/o of [place] s/p CABG 2002, chronic systolic CHF s/p ICD , CAD (s/p 4 stents) and COPD. He presents to the ED for c/o two days of midsternal non radiating 8/10 chest pain. Patient states the chest pain began yesterday with associated shortness of breath. He tried to rest, but chest pain and shortness of breath persisted. He called then called EMS. Patient states he saw Dr. Emanuel about 2 months ago for a follow up visit. He denies any recent fevers, chills, headache or dizziness. He denies any recent travel. He is a former smoker and has quit 15 years ago, no smoking since. ER course was notable for: (1) trop 0.14 (2) ekg ventricular paced rhythm 50s (3) asa 325mg (4) chest xray: no evidence of chf, of the vessels with questionable air space opacity in the region of the right cardiophrenic angle. - Current Medication List Current Medications: Active Medications Acetaminophen (Tylenol -) 650 mg PO Q6H PRN PRN Reason: PAIN Last Admin: 04/28/18 05:44 Dose: 650 mg Albuterol Sulfate (Ventolin 0.083% Nebulizer Soln -) 1 amp NEB Q4H PRN PRN Reason: SHORT OF BREATH/WHEEZING Last Admin: 04/30/18 20:47 Dose: 1 amp Aspirin (Asa -) 81 mg PO DAILY [facility] Last Admin: 05/01/18 09:47 Dose: 81 mg Atorvastatin Calcium (Lipitor -) 40 mg PO HS [facility] Last Admin: 04/30/18 21:15 Dose: Not Given Carvedilol (Coreg -) 25 mg PO BID [facility] Last Admin: 05/01/18 09:44 Dose: 25 mg Cefuroxime Axetil (Ceftin -) 500 mg PO BID [facility] Last Admin: 05/01/18 09:49 Dose: 500 mg Enoxaparin Sodium (Lovenox -) 40 mg SQ DAILY [facility] Last Admin: 05/01/18 09:43 Dose: 40 mg Furosemide (Lasix Injection -) 40 mg IVPUSH DAILY [facility] Glipizide (Glucotrol -) 5 mg PO DAILY@0700 [facility] Last Admin: 05/01/18 09:43 Dose: Not Given Insulin Aspart (Novolog Vial Sliding Scale -) 1 vial SQ TIDAC [facility]; Protocol Last Admin: 05/01/18 12:33 Dose: Not Given Lisinopril (Prinivil) 2.5 mg PO DAILY [facility] Last Admin: 05/01/18 09:44 Dose: 2.5 mg Spironolactone (Aldactone -) 25 mg PO DAILY [facility] Last Admin: 05/01/18 09:45 Dose: 25 mg Tiotropium [place] (Spiriva Respimat) 1 puff IH DAILY [facility] Last Admin: 05/01/18 09:51 Dose: 1 puff - Objective Vital Signs: Vital Signs Temperature 97.6 F 05/01/18 13:00 Pulse Rate 50 L 05/01/18 13:00 Respiratory Rate 18 05/01/18 13:00 Blood Pressure 144/75 05/01/18 13:00 O2 Sat by Pulse Oximetry (%) 98 05/01/18 09:00 Eyes: Yes: WNL, Conjunctiva Clear, EOM Intact HENT: Yes: WNL, Atraumatic, Normocephalic Neck: Yes: WNL, Supple, Trachea Midline Cardiovascular: Yes: WNL, Regular Rate and Rhythm Respiratory: Yes: WNL, Regular, CTA Bilaterally Gastrointestinal: Yes: WNL, Normal Bowel Sounds Genitourinary: Yes: WNL Musculoskeletal: Yes: WNL Extremities: Yes: WNL Edema: No Integumentary: Yes: WNL Neurological: Yes: WNL, Alert, Oriented ...Motor Strength: WNL Psychiatric: Yes: WNL Labs: CBC, BMP 04/28/18 06:00 05/01/18 05:00 INR, PTT INR 1.33 (0.83-1.09) H 04/26/18 05:20 Assessment/Plan - Problems (1) CAD (coronary artery disease) Assessment/Plan: s/p coronary stents x 4 TNI mildly elevated (no significant change from one year ago). EKG: V pacing. Rec: Aggressive control of lipids (diet, exercise, statin). Nitrate (Imdur 30 mg dailly; s/l NTG prn) for chest discomfort. Control of severe systolic LV dysfunction (see "CHF"). Code(s): I25.10 - ATHSCL HEART DISEASE OF [place] CORONARY ARTERY W/O ANG PCTRS (2) Chronic systolic CHF (congestive heart failure) Assessment/Plan: severely reduced LVEF. On Coreg, lisinopril. Add spironolactone (Cr Clearance, K+ WNL). ICD interrogation (may be done as outpatient). F/u BUN/Cr, electrolytes, Is and Os, daily weight. Code(s): I50.22 - CHRONIC SYSTOLIC (CONGESTIVE) HEART FAILURE (3) Diabetes mellitus Code(s): E11.9 - TYPE 2 DIABETES MELLITUS WITHOUT COMPLICATIONS (4) Elevated troponin Assessment/Plan: Mildly elevated TNI; CK pending. No acute STT changes. Contributing factors of mild TNI (relatively unchanged since 04/2017) include increased demand from severe dilated cardiomyopathy. Pt is asymptomatic. From a cardiac standpoint, pt may be followed up as an outpatient (stress MIBI). Code(s): R79.89 - OTHER SPECIFIED ABNORMAL FINDINGS OF BLOOD CHEMISTRY (5) Atypical chest pain Assessment/Plan: Pt has felt chest discomfort off and on for months; it usually occurs while at rest, lasts a few seconds, may return a few times during the day, then not recur for weeks. Denies ches pain with exertion. TNI mildly elevated; unchanged for the past year. EKG : Ventricular pacing. Pt may be followed as outpatient (was scheduled for stress MIBI today, but ate breakfast). Addendum (18:00): Pt was asymptomatic all day until his family arrived in late afternoon to pick him up; he then told them (his brother, and his ex-) that he felt central chest pressure at rest. He is worried about returning home now because he will be alone in the house until the morning (has an aide during the day). EKG: unchanged (ventricular paced rhythm). CXR: congestive changes (severe systolic LV dysfunction). Rec: TNI now and in am. Add Imdur 30 mg daily, and s/l NTG prn. Spironolactone was started; continue furosemide. If TNI is unchanged or improved by the morning, and no arrhythmias or significant STT changes on telemetry, pt may be followed as an outpatient;will do stress MIBI 05/01/18. Code(s): R07.89 - OTHER CHEST PAIN
--- NOTE | 2018-05-01 14:59 | PN ---
Progress Note (short form) - Note Progress Note: PULMONARY Denies shortness of breath, cough or wheezing. Vital Signs Period Temp Pulse Resp BP Sys/Alfaro Pulse Ox Last 24 Hr 97.6 F-98.5 F 50-55 18-20 110-157/55-75 96-98 Gen: NAD at rest Heart: RRR Lung: decreased breath sounds at the bases Abd: soft, nontender Ext: no edema CBC, BMP 04/28/18 06:00 05/01/18 05:00 Active Medications Acetaminophen (Tylenol -) 650 mg PO Q6H PRN PRN Reason: PAIN Last Admin: 04/28/18 05:44 Dose: 650 mg Albuterol Sulfate (Ventolin 0.083% Nebulizer Soln -) 1 amp NEB Q4H PRN PRN Reason: SHORT OF BREATH/WHEEZING Last Admin: 04/30/18 20:47 Dose: 1 amp Aspirin (Asa -) 81 mg PO DAILY [facility] Last Admin: 05/01/18 09:47 Dose: 81 mg Atorvastatin Calcium (Lipitor -) 40 mg PO HS [facility] Last Admin: 04/30/18 21:15 Dose: Not Given Carvedilol (Coreg -) 25 mg PO BID [facility] Last Admin: 05/01/18 09:44 Dose: 25 mg Cefuroxime Axetil (Ceftin -) 500 mg PO BID [facility] Last Admin: 05/01/18 09:49 Dose: 500 mg Enoxaparin Sodium (Lovenox -) 40 mg SQ DAILY [facility] Last Admin: 05/01/18 09:43 Dose: 40 mg Furosemide (Lasix Injection -) 40 mg IVPUSH DAILY [facility] Glipizide (Glucotrol -) 5 mg PO DAILY@0700 [facility] Last Admin: 05/01/18 09:43 Dose: Not Given Insulin Aspart (Novolog Vial Sliding Scale -) 1 vial SQ TIDAC [facility]; Protocol Last Admin: 05/01/18 12:33 Dose: Not Given Lisinopril (Prinivil) 2.5 mg PO DAILY [facility] Last Admin: 05/01/18 09:44 Dose: 2.5 mg Spironolactone (Aldactone -) 25 mg PO DAILY [facility] Last Admin: 05/01/18 09:45 Dose: 25 mg Tiotropium [place] (Spiriva Respimat) 1 puff IH DAILY [facility] Last Admin: 05/01/18 09:51 Dose: 1 puff A/P Acute on Chronic Systolic Heart Failure Pulmonary HTN CAD s/p CABG HTN DM +Troponins likely Demand Ischemia - continue lasix, aldactone - monitor urine output, creatinine - beta marcy - O2 as needed - DVT prophylaxis
[2018-05-01] MEDS: ATORVASTATIN CA 40 MG TABLET (FP) PO SCH (22:21)
[2018-05-02] MEDS: INSULIN SLIDING SCALE (NOVOLOG) 1 VIAL SQ SCH ×3 (06:21→16:41)
--- NOTE | 2018-05-02 09:03 | PN ---
Progress Note, Physician - Current Medication List Current Medications: Active Medications Acetaminophen (Tylenol -) 650 mg PO Q6H PRN PRN Reason: PAIN Last Admin: 04/28/18 05:44 Dose: 650 mg Albuterol Sulfate (Ventolin 0.083% Nebulizer Soln -) 1 amp NEB Q4H PRN PRN Reason: SHORT OF BREATH/WHEEZING Last Admin: 04/30/18 20:47 Dose: 1 amp Aspirin (Asa -) 81 mg PO DAILY [facility] Last Admin: 05/01/18 09:47 Dose: 81 mg Atorvastatin [place]cium (Lipitor -) 40 mg PO HS [facility] Last Admin: 05/01/18 22:21 Dose: 40 mg Carvedilol (Coreg -) 25 mg PO BID [facility] Last Admin: 05/01/18 22:21 Dose: 25 mg Cefuroxime Axetil (Ceftin -) 500 mg PO BID [facility] Last Admin: 05/01/18 22:21 Dose: 500 mg Enoxaparin Sodium (Lovenox -) 40 mg SQ DAILY [facility] Last Admin: 05/01/18 09:43 Dose: 40 mg Furosemide (Lasix Injection -) 40 mg IVPUSH DAILY [facility] Glipizide (Glucotrol -) 5 mg PO DAILY@0700 [facility] Last Admin: 05/01/18 09:43 Dose: Not Given Insulin Aspart (Novolog Vial Sliding Scale -) 1 vial SQ TIDAC [facility]; Protocol Last Admin: 05/02/18 06:21 Dose: Not Given Lisinopril (Prinivil) 2.5 mg PO DAILY [facility] Last Admin: 05/01/18 09:44 Dose: 2.5 mg Spironolactone (Aldactone -) 25 mg PO DAILY [facility] Last Admin: 05/01/18 09:45 Dose: 25 mg Tiotropium [place] (Spiriva Respimat) 1 puff IH DAILY [facility] Last Admin: 05/01/18 09:51 Dose: 1 puff - Objective Vital Signs: Vital Signs Temperature 97.9 F 05/02/18 05:00 Pulse Rate 50 L 05/02/18 05:00 Respiratory Rate 18 05/02/18 05:00 Blood Pressure 114/67 05/02/18 05:00 O2 Sat by Pulse Oximetry (%) 98 05/01/18 09:00 Cardiovascular: Yes: S1, S2 Respiratory: Yes: Regular, CTA Bilaterally, On Nasal O2 Gastrointestinal: Yes: Normal Bowel Sounds, Soft Labs: CBC, BMP 04/28/18 06:00 05/01/18 05:00 INR, PTT INR 1.33 (0.83-1.09) H 04/26/18 05:20 Assessment/Plan - Problems (1) Chest pain Assessment/Plan: -Cardiology consult -Echo-done and reviewed--poor lv function -Observed on tele -trops elevated-previously elevated as well -stress test as outpatient per cardio Code(s): R07.9 - CHEST PAIN, UNSPECIFIED Qualifiers: Chest pain type: unspecified Qualified Code(s): R07.9 - Chest pain, unspecified (2) CAD (coronary artery disease) Assessment/Plan: -Cardiology on board -On asa + statin -stress test Code(s): I25.10 - ATHSCL HEART DISEASE OF [place] CORONARY ARTERY W/O ANG PCTRS (3) Diabetes mellitus Assessment/Plan: -Last A1c 5.3 in 04/2016 -recheck A1C -BGM AC HS -Diabetic/low sodium diet -Novolog sliding scale Code(s): E11.9 - TYPE 2 DIABETES MELLITUS WITHOUT COMPLICATIONS (4) Dyspnea--COPD/CHF Assessment/Plan: -CxR -Pulm Consult -on nebs and -lasix ivp -ct noted--fu cxr (5) Bradycardia Assessment/Plan: -Ekg -Monitor rate--pt on coreg
[2018-05-02] MEDS: ENOXAPARIN NA (PORCINE) 40 MG/0.4 ML DISP.SYRIN SQ SCH (09:35)
[2018-05-02] MEDS: TIOTROPIUM BROMIDE 2.5 MCG (SPIRIVA) RESPIMAT INHALER IH SCH (09:35)
[2018-05-02] MEDS: FUROSEMIDE 40 MG/4 ML INJECTABLE VIAL IVPUSH SCH (09:36)
[2018-05-02] MEDS: LISINOPRIL 5 MG TABLET (FP) PO SCH (09:36)
[2018-05-02] MEDS: CEFUROXIME AXETIL 500 MG TABLET PO SCH ×2 (09:36→21:11)
[2018-05-02] MEDS: SPIRONOLACTONE 25 MG TABLET (FP) PO SCH (09:38)
[2018-05-02] MEDS: glipiZIDE 5 MG TABLET (FP) PO SCH (09:38)
[2018-05-02] MEDS: CARVEDILOL 25 MG TABLET (FP) PO SCH ×2 (09:38→21:11)
[2018-05-02] MEDS ORDERED: ASPIRIN 81 MG CHEWABLE TABLETS ONE (09:40)
[2018-05-02] MEDS: ASPIRIN 81 MG CHEWABLE TABLETS PO SCH (09:40)
[2018-05-02 11:39] LABS: BASO % 0.9 % (0-2.0); EOS % 5.4 % (0-4.5); HEMATOCRIT 39.1 % (35.4-49); HEMOGLOBIN 12.6 GM/dL (11.7-16.9); LYMPH % 13.6 % (8-40); MCH 28.1 pg (25.7-33.7); MCHC 32.2 g/dl (32.0-35.9); MEAN CELL VOLUME 87.1 fl (80-96); MEAN PLT VOLUME 8.4 fl (7.5-11.1); NEUT % 72.1 % (42.8-82.8); PLATELET COUNT 284 K/MM3 (134-434); RBC 4.49 M/mm3 (4.00-5.60); RDW 14.6 % (11.9-15.9); WHITE BLOOD COUNT 6.1 K/mm3 (4.0-10.0)
[2018-05-02 12:09] LABS: ALBUMIN 2.9 g/dl (3.4-5.0); ALK PHOS 107 U/L (45-117); ANION GAP 6 MMOL/L (8-16); BILIRUBIN,TOTAL 0.8 mg/dL (0.2-1); BLOOD UREA NITROGEN 24 mg/dL (7-18); CHLORIDE 103 mmol/L (98-107); CO2 29 mmol/L (21-32); GLUCOSE,RANDOM 177 mg/dL (74-106); POTASSIUM 3.9 mmol/L (3.5-5.1); SGOT/AST 49 U/L (15-37); SGPT/ALT 79 U/L (13-61); SODIUM 139 mmol/L (136-145)
--- NOTE | 2018-05-02 12:43 | PN ---
Progress Note, Physician Chief Complaint: Pt A&Ox3; OOB in chair;asymptomatic. History of Present Illness: The patient is a 77 year old male, with a significant past medical history of hypertension, diabetes, hyperlipidemia, CAD (s/p 4 stents) , s/p ICD ([employer], single chamber; battery replaced in 2013), who presents to the emergency department with, 2 days of chest pain. As per patient, his symptoms onset early yesterday morning while he was sitting down. He notes he believed the symptoms would resolve with relaxation but, after the symptoms persisted he called for EMS. He denies any recent shortness of breath, palpitations, or diaphoresis. He denies any recent fevers, chills, headache or dizziness. He denies any recent nausea, vomit, diarrhea or constipation. He denies any recent dysuria, frequency , urgency or hematuria. Allergies: NKDA Past surgical history: Cardiac stenting x4. Social History: Nonsmoker. Denies EtOH use and recreational drug use. Primary Care Physician: Dr. Reddy - Current Medication List Current Medications: Active Medications Acetaminophen (Tylenol -) 650 mg PO Q6H PRN PRN Reason: PAIN Last Admin: 04/28/18 05:44 Dose: 650 mg Albuterol Sulfate (Ventolin 0.083% Nebulizer Soln -) 1 amp NEB Q4H PRN PRN Reason: SHORT OF BREATH/WHEEZING Last Admin: 04/30/18 20:47 Dose: 1 amp Aspirin (Asa -) 81 mg PO DAILY [facility] Last Admin: 05/02/18 09:40 Dose: 81 mg Atorvastatin Calcium (Lipitor -) 40 mg PO HS [facility] Last Admin: 05/01/18 22:21 Dose: 40 mg Carvedilol (Coreg -) 25 mg PO BID [facility] Last Admin: 05/02/18 09:38 Dose: 25 mg Cefuroxime Axetil (Ceftin -) 500 mg PO BID [facility] Last Admin: 05/02/18 09:36 Dose: 500 mg Enoxaparin Sodium (Lovenox -) 40 mg SQ DAILY [facility] Last Admin: 05/02/18 09:35 Dose: 40 mg Furosemide (Lasix Injection -) 40 mg IVPUSH DAILY [facility] Last Admin: 05/02/18 09:36 Dose: 40 mg Glipizide (Glucotrol -) 5 mg PO DAILY@0700 [facility] Last Admin: 05/02/18 09:38 Dose: 5 mg Insulin Aspart (Novolog Vial Sliding Scale -) 1 vial SQ TIDAC [facility]; Protocol Last Admin: 05/02/18 06:21 Dose: Not Given Lisinopril (Prinivil) 2.5 mg PO DAILY [facility] Last Admin: 05/02/18 09:36 Dose: 2.5 mg Spironolactone (Aldactone -) 25 mg PO DAILY [facility] Last Admin: 05/02/18 09:38 Dose: 25 mg Tiotropium [place] (Spiriva Respimat) 1 puff IH DAILY [facility] Last Admin: 05/02/18 09:35 Dose: 1 puff - Objective Vital Signs: Vital Signs Temperature 97.9 F 05/02/18 05:00 Pulse Rate 50 L 05/02/18 05:00 Respiratory Rate 18 05/02/18 05:00 Blood Pressure 114/67 05/02/18 05:00 O2 Sat by Pulse Oximetry (%) 98 05/01/18 09:00 Constitutional: Yes: Well Nourished, No Distress Eyes: Yes: WNL HENT: Yes: WNL Neck: Yes: WNL Cardiovascular: Yes: WNL Respiratory: Yes: WNL Gastrointestinal: Yes: Soft ...Rectal Exam: Yes: Deferred Genitourinary: No: Anuria Breast(s): Yes: WNL Musculoskeletal: Yes: Muscle Weakness Extremities: Yes: WNL Edema: No Peripheral Pulses WNL: Yes Integumentary: Yes: WNL Neurological: Yes: Alert, Oriented Psychiatric: Yes: Other (anxiety) Labs: CBC, BMP 05/02/18 11:15 05/02/18 11:15 INR, PTT INR 1.33 (0.83-1.09) H 04/26/18 05:20 Abnormal Lab Results 05/02/18 05/02/18 11:15 11:15 Eosinophils % 5.4 H D Anion Gap 6 L BUN 24 H Random Glucose 177 H AST 49 H ALT 79 H Albumin 2.9 L - ....Imaging X-ray: Pending Problem List - Problems (1) CAD (coronary artery disease) Assessment/Plan: s/p coronary stents x 4 TNI mildly elevated (no significant change from one year ago). EKG: V pacing. Rec: Aggressive control of lipids (diet, exercise, statin). Nitrate (Imdur 30 mg dailly; s/l NTG prn) for chest discomfort. Control of severe systolic LV dysfunction (see "CHF"). Code(s): I25.10 - ATHSCL HEART DISEASE OF [place] CORONARY ARTERY W/O ANG PCTRS (2) Chronic systolic CHF (congestive heart failure) Assessment/Plan: severely reduced LVEF. On Coreg, lisinopril; furosemide prn Added spironolactone (Cr Clearance, K+ WNL). ICD interrogation (may be done as outpatient). F/u BUN/Cr, electrolytes, Is and Os, daily weight. Addendum: CXR 05/02/2018 shows marked improvement in CHF. 11 lb wt loss since admission. Asymptomatic (no chest pain, dyspnea, or palpitations). From cardiac standpoint, pt may be followed as outpatient. Code(s): I50.22 - CHRONIC SYSTOLIC (CONGESTIVE) HEART FAILURE (3) Diabetes mellitus Code(s): E11.9 - TYPE 2 DIABETES MELLITUS WITHOUT COMPLICATIONS Qualifiers: Diabetes mellitus type: type 2 (4) Elevated troponin Assessment/Plan: Mildly (and chronically)elevated TNI; CK WNL. No acute STT changes. Contributing factors of mild TNI (relatively unchanged since 04/2017) include increased demand from severe dilated cardiomyopathy. Pt is asymptomatic. From a cardiac standpoint, pt may be followed up as an outpatient (for stress MIBI). Code(s): R79.89 - OTHER SPECIFIED ABNORMAL FINDINGS OF BLOOD CHEMISTRY (5) Atypical chest pain Assessment/Plan: Pt has felt chest discomfort off and on for months; it usually occurs while at rest, lasts a few seconds, may return a few times during the day, then not recur for weeks. Denies ches pain with exertion. TNI mildly elevated; unchanged for the past year. EKG : Ventricular pacing. Pt may be followed as outpatient (was scheduled for stress MIBI today, but ate breakfast). Addendum (18:00 on 04/28/18): Pt was asymptomatic all day until his family arrived in late afternoon to pick him up; he then told them (his brother, and his ex-) that he felt central chest pressure at rest. He was worried about returning home now because he would be alone in the house until the morning (has an aide during the day). TNI and EKG essentially unchanged overnight. EKG: unchanged (ventricular paced rhythm). Add Imdur 30 mg daily, and s/l NTG prn. Spironolactone was started; continue furosemide. Code(s): R07.89 - OTHER CHEST PAIN
--- NOTE | 2018-05-02 13:13 | PN ---
Progress Note, Physician History of Present Illness: PULMONARY ALERT,NO DISTRESS,DYSPNEA IMPROVING. - Current Medication List Current Medications: Active Medications Acetaminophen (Tylenol -) 650 mg PO Q6H PRN PRN Reason: PAIN Last Admin: 04/28/18 05:44 Dose: 650 mg Albuterol Sulfate (Ventolin 0.083% Nebulizer Soln -) 1 amp NEB Q4H PRN PRN Reason: SHORT OF BREATH/WHEEZING Last Admin: 04/30/18 20:47 Dose: 1 amp Aspirin (Asa -) 81 mg PO DAILY [facility] Last Admin: 05/02/18 09:40 Dose: 81 mg Atorvastatin Calcium (Lipitor -) 40 mg PO HS [facility] Last Admin: 05/01/18 22:21 Dose: 40 mg Carvedilol (Coreg -) 25 mg PO BID [facility] Last Admin: 05/02/18 09:38 Dose: 25 mg Cefuroxime Axetil (Ceftin -) 500 mg PO BID [facility] Last Admin: 05/02/18 09:36 Dose: 500 mg Enoxaparin Sodium (Lovenox -) 40 mg SQ DAILY [facility] Last Admin: 05/02/18 09:35 Dose: 40 mg Furosemide (Lasix Injection -) 40 mg IVPUSH DAILY [facility] Last Admin: 05/02/18 09:36 Dose: 40 mg Glipizide (Glucotrol -) 5 mg PO DAILY@0700 [facility] Last Admin: 05/02/18 09:38 Dose: 5 mg Insulin Aspart (Novolog Vial Sliding Scale -) 1 vial SQ TIDAC [facility]; Protocol Last Admin: 05/02/18 06:21 Dose: Not Given Lisinopril (Prinivil) 2.5 mg PO DAILY [facility] Last Admin: 05/02/18 09:36 Dose: 2.5 mg Spironolactone (Aldactone -) 25 mg PO DAILY [facility] Last Admin: 05/02/18 09:38 Dose: 25 mg Tiotropium [place] (Spiriva Respimat) 1 puff IH DAILY [facility] Last Admin: 05/02/18 09:35 Dose: 1 puff - Objective Vital Signs: Vital Signs Temperature 98.1 F 05/02/18 09:00 Pulse Rate 50 L 05/02/18 09:00 Respiratory Rate 18 05/02/18 09:00 Blood Pressure 131/58 L 05/02/18 09:00 O2 Sat by Pulse Oximetry (%) 98 05/02/18 09:00 Constitutional: Yes: Well Nourished, Calm Eyes: Yes: WNL HENT: Yes: WNL Neck: Yes: WNL Cardiovascular: Yes: Regular Rate and Rhythm, S1, S2 Respiratory: Yes: Rales (FEW BIBASILAR RALES) Gastrointestinal: Yes: Normal Bowel Sounds, Soft Extremities: Yes: WNL Edema: No Labs: CBC, BMP 05/02/18 11:15 05/02/18 11:15 INR, PTT INR 1.33 (0.83-1.09) H 04/26/18 05:20 - ....Imaging Chest X-ray: Report Reviewed, Image Reviewed (IMPROVED CONGESTION) Problem List - Problems (1) Acute on chronic systolic (congestive) heart failure Code(s): I50.23 - ACUTE ON CHRONIC SYSTOLIC (CONGESTIVE) HEART FAILURE (2) Chest pain Code(s): R07.9 - CHEST PAIN, UNSPECIFIED Qualifiers: Chest pain type: unspecified Qualified Code(s): R07.9 - Chest pain, unspecified (3) CAD (coronary artery disease) Code(s): I25.10 - ATHSCL HEART DISEASE OF [place] CORONARY ARTERY W/O ANG PCTRS (4) Chronic systolic CHF (congestive heart failure) Code(s): I50.22 - CHRONIC SYSTOLIC (CONGESTIVE) HEART FAILURE (5) Diabetes mellitus Code(s): E11.9 - TYPE 2 DIABETES MELLITUS WITHOUT COMPLICATIONS Qualifiers: Diabetes mellitus type: type 2 (6) Fever Code(s): R50.9 - FEVER, UNSPECIFIED (7) Hx of CABG Code(s): Z95.1 - PRESENCE OF AORTOCORONARY BYPASS GRAFT (8) Hyperlipidemia Code(s): E78.5 - HYPERLIPIDEMIA, UNSPECIFIED (9) Hypertension Code(s): I10 - ESSENTIAL (PRIMARY) HYPERTENSION (10) ICD (implantable cardioverter-defibrillator) malfunction Code(s): T82.9XXA - UNSP COMP OF CARDIAC AND VASCULAR PROSTH DEV/GRFT, INIT Assessment/Plan IMP DYSPNEA IMPROVING ACUTE ON CHRONIC CHF IMPROVING SEVERE LV DYSFUNCTION S/P ICD PULMONARY HTN CHEST PAIN ASHD S/P CABG,S/P STENTS HTN DM + TROPONIN PLAN LASIX O2 INHALED BRONCHODILATORS DAILY [facility] [place] Problem List - Problems (1) Acute on chronic systolic (congestive) heart failure Code(s): I50.23 - ACUTE ON CHRONIC SYSTOLIC (CONGESTIVE) HEART FAILURE (2) Chest pain Code(s): R07.9 - CHEST PAIN, UNSPECIFIED Qualifiers: Chest pain type: unspecified Qualified Code(s): R07.9 - Chest pain, unspecified (3) CAD (coronary artery disease) Code(s): I25.10 - ATHSCL HEART DISEASE OF [place] CORONARY ARTERY W/O ANG PCTRS (4) Chronic systolic CHF (congestive heart failure) Code(s): I50.22 - CHRONIC SYSTOLIC (CONGESTIVE) HEART FAILURE (5) Diabetes mellitus Code(s): E11.9 - TYPE 2 DIABETES MELLITUS WITHOUT COMPLICATIONS (6) Fever Code(s): R50.9 - FEVER, UNSPECIFIED (7) Hx of CABG Code(s): Z95.1 - PRESENCE OF AORTOCORONARY BYPASS GRAFT (8) Hyperlipidemia Code(s): E78.5 - HYPERLIPIDEMIA, UNSPECIFIED (9) Hypertension Code(s): I10 - ESSENTIAL (PRIMARY) HYPERTENSION (10) ICD (implantable cardioverter-defibrillator) malfunction Code(s): T82.9XXA - UNSP COMP OF CARDIAC AND VASCULAR PROSTH DEV/GRFT, INIT
[2018-05-02] MEDS: ATORVASTATIN CA 40 MG TABLET (FP) PO SCH (21:11)
[2018-05-03] MEDS: INSULIN SLIDING SCALE (NOVOLOG) 1 VIAL SQ SCH ×3 (06:07→17:04)
[2018-05-03] MEDS: glipiZIDE 5 MG TABLET (FP) PO SCH ×2 (06:07→09:18)
[2018-05-03] MEDS: SPIRONOLACTONE 25 MG TABLET (FP) PO SCH (09:18)
[2018-05-03] MEDS: CEFUROXIME AXETIL 500 MG TABLET PO SCH ×2 (09:19→21:09)
[2018-05-03] MEDS: CARVEDILOL 25 MG TABLET (FP) PO SCH ×2 (09:19→21:09)
[2018-05-03] MEDS: FUROSEMIDE 40 MG/4 ML INJECTABLE VIAL IVPUSH SCH (09:20)
[2018-05-03] MEDS: ENOXAPARIN NA (PORCINE) 40 MG/0.4 ML DISP.SYRIN SQ SCH (09:20)
[2018-05-03] MEDS: LISINOPRIL 5 MG TABLET (FP) PO SCH (09:20)
[2018-05-03] MEDS: ASPIRIN 81 MG CHEWABLE TABLETS PO SCH (09:21)
[2018-05-03] MEDS: TIOTROPIUM BROMIDE 2.5 MCG (SPIRIVA) RESPIMAT INHALER IH SCH (09:21)
[2018-05-03] MEDS ORDERED: guaiFENesin/CODEINE 5 ML UNIT-DOSE CUPS PO PRN (10:08)
--- NOTE | 2018-05-03 10:08 | PN ---
Progress Note, Physician - Current Medication List Current Medications: Active Medications Acetaminophen (Tylenol -) 650 mg PO Q6H PRN PRN Reason: PAIN Last Admin: 04/28/18 05:44 Dose: 650 mg Albuterol Sulfate (Ventolin 0.083% Nebulizer Soln -) 1 amp NEB Q4H PRN PRN Reason: SHORT OF BREATH/WHEEZING Last Admin: 04/30/18 20:47 Dose: 1 amp Aspirin (Asa -) 81 mg PO DAILY [facility] Last Admin: 05/03/18 09:21 Dose: 81 mg Atorvastatin Calcium (Lipitor -) 40 mg PO HS [facility] Last Admin: 05/02/18 21:11 Dose: 40 mg Carvedilol (Coreg -) 25 mg PO BID [facility] Last Admin: 05/03/18 09:19 Dose: 25 mg Cefuroxime Axetil (Ceftin -) 500 mg PO BID [facility] Last Admin: 05/03/18 09:19 Dose: 500 mg Enoxaparin Sodium (Lovenox -) 40 mg SQ DAILY [facility] Last Admin: 05/03/18 09:20 Dose: 40 mg Furosemide (Lasix Injection -) 40 mg IVPUSH DAILY [facility] Last Admin: 05/03/18 09:20 Dose: 40 mg Glipizide (Glucotrol -) 5 mg PO DAILY@0700 [facility] Last Admin: 05/03/18 09:18 Dose: 5 mg Insulin Aspart (Novolog Vial Sliding Scale -) 1 vial SQ TIDAC [facility]; Protocol Last Admin: 05/03/18 06:07 Dose: Not Given Lisinopril (Prinivil) 2.5 mg PO DAILY [facility] Last Admin: 05/03/18 09:20 Dose: 2.5 mg Spironolactone (Aldactone -) 25 mg PO DAILY [facility] Last Admin: 05/03/18 09:18 Dose: 25 mg Tiotropium [place] (Spiriva Respimat) 1 puff IH DAILY [facility] Last Admin: 05/03/18 09:21 Dose: 1 puff - Objective Vital Signs: Vital Signs Temperature 97.7 F 05/03/18 06:00 Pulse Rate 50 L 05/03/18 06:00 Respiratory Rate 18 05/03/18 06:00 Blood Pressure 140/72 05/03/18 06:00 O2 Sat by Pulse Oximetry (%) 98 05/02/18 19:58 Labs: CBC, BMP 05/02/18 11:15 05/02/18 11:15 INR, PTT INR 1.33 (0.83-1.09) H 04/26/18 05:20
--- NOTE | 2018-05-03 11:03 | PN ---
Progress Note, Physician History of Present Illness: Patient is a 77 year old male with a past medical history of hypertension, diabetes, hyperlipidemia, h/o of VT s/p CABG 2002, chronic systolic CHF s/p ICD , CAD (s/p 4 stents) and COPD. He presents to the ED for c/o two days of midsternal non radiating 8/10 chest pain. Patient states the chest pain began yesterday with associated shortness of breath. He tried to rest, but chest pain and shortness of breath persisted. He called then called EMS. Patient states he saw Dr. Emanuel about 2 months ago for a follow up visit. He denies any recent fevers, chills, headache or dizziness. He denies any recent travel. He is a former smoker and has quit 15 years ago, no smoking since. ER course was notable for: (1) trop 0.14 (2) ekg ventricular paced rhythm 50s (3) asa 325mg (4) chest xray: no evidence of chf, of the vessels with questionable air space opacity in the region of the right cardiophrenic angle. - Current Medication List Current Medications: Active Medications Acetaminophen (Tylenol -) 650 mg PO Q6H PRN PRN Reason: PAIN Last Admin: 04/28/18 05:44 Dose: 650 mg Albuterol Sulfate (Ventolin 0.083% Nebulizer Soln -) 1 amp NEB Q4H PRN PRN Reason: SHORT OF BREATH/WHEEZING Last Admin: 04/30/18 20:47 Dose: 1 amp Aspirin (Asa -) 81 mg PO DAILY [facility] Last Admin: 05/03/18 09:21 Dose: 81 mg Atorvastatin Calcium (Lipitor -) 40 mg PO HS [facility] Last Admin: 05/02/18 21:11 Dose: 40 mg Carvedilol (Coreg -) 25 mg PO BID [facility] Last Admin: 05/03/18 09:19 Dose: 25 mg Cefuroxime Axetil (Ceftin -) 500 mg PO BID [facility] Last Admin: 05/03/18 09:19 Dose: 500 mg Enoxaparin Sodium (Lovenox -) 40 mg SQ DAILY [facility] Last Admin: 05/03/18 09:20 Dose: 40 mg Furosemide (Lasix Injection -) 40 mg IVPUSH DAILY [facility] Last Admin: 05/03/18 09:20 Dose: 40 mg Glipizide (Glucotrol -) 5 mg PO DAILY@0700 [facility] Last Admin: 05/03/18 09:18 Dose: 5 mg Guaifenesin/Codeine Phosphate (Robitussin Ac -) 5 ml PO Q4H PRN PRN Reason: COUGH Insulin Aspart (Novolog Vial Sliding Scale -) 1 vial SQ TIDAC [facility]; Protocol Last Admin: 05/03/18 06:07 Dose: Not Given Lisinopril (Prinivil) 2.5 mg PO DAILY [facility] Last Admin: 05/03/18 09:20 Dose: 2.5 mg Spironolactone (Aldactone -) 25 mg PO DAILY [facility] Last Admin: 05/03/18 09:18 Dose: 25 mg Tiotropium [place] (Spiriva Respimat) 1 puff IH DAILY [facility] Last Admin: 05/03/18 09:21 Dose: 1 puff - Objective Vital Signs: Vital Signs Temperature 98.0 F 05/03/18 10:00 Pulse Rate 52 L 05/03/18 10:00 Respiratory Rate 18 05/03/18 10:00 Blood Pressure 135/69 05/03/18 10:00 O2 Sat by Pulse Oximetry (%) 98 05/03/18 10:00 Eyes: Yes: WNL, Conjunctiva Clear, EOM Intact HENT: Yes: WNL, Atraumatic, Normocephalic Neck: Yes: WNL, Supple, Trachea Midline Cardiovascular: Yes: WNL, Regular Rate and Rhythm Respiratory: Yes: WNL, Regular, CTA Bilaterally Gastrointestinal: Yes: WNL, Normal Bowel Sounds Genitourinary: Yes: WNL Musculoskeletal: Yes: WNL Extremities: Yes: WNL Edema: No Integumentary: Yes: WNL Neurological: Yes: WNL, Alert, Oriented ...Motor Strength: WNL Psychiatric: Yes: WNL Labs: CBC, BMP 05/02/18 11:15 05/02/18 11:15 INR, PTT INR 1.33 (0.83-1.09) H 04/26/18 05:20 Assessment/Plan (1) CAD (coronary artery disease) Assessment/Plan: s/p coronary stents x 4 TNI mildly elevated (no significant change from one year ago). EKG: V pacing. Rec: Aggressive control of lipids (diet, exercise, statin). Nitrate (Imdur 30 mg dailly; s/l NTG prn) for chest discomfort. Control of severe systolic LV dysfunction (see "CHF"). Code(s): I25.10 - ATHSCL HEART DISEASE OF [place] CORONARY ARTERY W/O ANG PCTRS (2) Chronic systolic CHF (congestive heart failure) Assessment/Plan: severely reduced LVEF. On Coreg, lisinopril; furosemide prn Added spironolactone (Cr Clearance, K+ WNL). ICD interrogation (may be done as outpatient). F/u BUN/Cr, electrolytes, Is and Os, daily weight. Addendum: CXR 05/02/2018 shows marked improvement in CHF. 11 lb wt loss since admission. Asymptomatic (no chest pain, dyspnea, or palpitations). From cardiac standpoint, pt may be followed as outpatient. Code(s): I50.22 - CHRONIC SYSTOLIC (CONGESTIVE) HEART FAILURE (3) Diabetes mellitus Code(s): E11.9 - TYPE 2 DIABETES MELLITUS WITHOUT COMPLICATIONS Qualifiers: Diabetes mellitus type: type 2 (4) Elevated troponin Assessment/Plan: Mildly (and chronically)elevated TNI; CK WNL. No acute STT changes. Contributing factors of mild TNI (relatively unchanged since 04/2017) include increased demand from severe dilated cardiomyopathy. Pt is asymptomatic. From a cardiac standpoint, pt may be followed up as an outpatient (for stress MIBI). Code(s): R79.89 - OTHER SPECIFIED ABNORMAL FINDINGS OF BLOOD CHEMISTRY (5) Atypical chest pain Assessment/Plan: Pt has felt chest discomfort off and on for months; it usually occurs while at rest, lasts a few seconds, may return a few times during the day, then not recur for weeks. Denies ches pain with exertion. TNI mildly elevated; unchanged for the past year. EKG : Ventricular pacing. Pt may be followed as outpatient (was scheduled for stress MIBI today, but ate breakfast). Addendum (18:00 on 04/28/18): Pt was asymptomatic all day until his family arrived in late afternoon to pick him up; he then told them (his brother, and his ex-) that he felt central chest pressure at rest. He was worried about returning home now because he would be alone in the house until the morning (has an aide during the day). TNI and EKG essentially unchanged overnight. EKG: unchanged (ventricular paced rhythm). Add Imdur 30 mg daily, and s/l NTG prn. Spironolactone was started; continue furosemide.
--- NOTE | 2018-05-03 12:29 | PN ---
Progress Note, Physician History of Present Illness: pulmonary alert,no distress,-cp,-sob - Current Medication List Current Medications: Active Medications Acetaminophen (Tylenol -) 650 mg PO Q6H PRN PRN Reason: PAIN Last Admin: 04/28/18 05:44 Dose: 650 mg Albuterol Sulfate (Ventolin 0.083% Nebulizer Soln -) 1 amp NEB Q4H PRN PRN Reason: SHORT OF BREATH/WHEEZING Last Admin: 04/30/18 20:47 Dose: 1 amp Aspirin (Asa -) 81 mg PO DAILY [facility] Last Admin: 05/03/18 09:21 Dose: 81 mg Atorvastatin Calcium (Lipitor -) 40 mg PO HS [facility] Last Admin: 05/02/18 21:11 Dose: 40 mg Carvedilol (Coreg -) 25 mg PO BID [facility] Last Admin: 05/03/18 09:19 Dose: 25 mg Cefuroxime Axetil (Ceftin -) 500 mg PO BID [facility] Last Admin: 05/03/18 09:19 Dose: 500 mg Enoxaparin Sodium (Lovenox -) 40 mg SQ DAILY [facility] Last Admin: 05/03/18 09:20 Dose: 40 mg Furosemide (Lasix Injection -) 40 mg IVPUSH DAILY [facility] Last Admin: 05/03/18 09:20 Dose: 40 mg Glipizide (Glucotrol -) 5 mg PO DAILY@0700 [facility] Last Admin: 05/03/18 09:18 Dose: 5 mg Guaifenesin/Codeine Phosphate (Robitussin Ac -) 5 ml PO Q4H PRN PRN Reason: COUGH Insulin Aspart (Novolog Vial Sliding Scale -) 1 vial SQ TIDAC [facility]; Protocol Last Admin: 05/03/18 11:46 Dose: Not Given Lisinopril (Prinivil) 2.5 mg PO DAILY [facility] Last Admin: 05/03/18 09:20 Dose: 2.5 mg Spironolactone (Aldactone -) 25 mg PO DAILY [facility] Last Admin: 05/03/18 09:18 Dose: 25 mg Tiotropium [place] (Spiriva Respimat) 1 puff IH DAILY [facility] Last Admin: 05/03/18 09:21 Dose: 1 puff - Objective Vital Signs: Vital Signs Temperature 98.0 F 05/03/18 10:00 Pulse Rate 52 L 05/03/18 10:00 Respiratory Rate 18 05/03/18 10:00 Blood Pressure 135/69 05/03/18 10:00 O2 Sat by Pulse Oximetry (%) 98 05/03/18 10:00 Constitutional: Yes: Well Nourished, Calm Eyes: Yes: WNL HENT: Yes: WNL Neck: Yes: WNL Cardiovascular: Yes: Regular Rate and Rhythm, S1, S2 Respiratory: Yes: Rales (few basilar rales) Gastrointestinal: Yes: Normal Bowel Sounds, Soft Extremities: Yes: WNL Edema: No Labs: CBC, BMP Problem List - Problems (1) Acute on chronic systolic (congestive) heart failure Code(s): I50.23 - ACUTE ON CHRONIC SYSTOLIC (CONGESTIVE) HEART FAILURE (2) Chest pain Code(s): R07.9 - CHEST PAIN, UNSPECIFIED Qualifiers: Chest pain type: unspecified Qualified Code(s): R07.9 - Chest pain, unspecified (3) CAD (coronary artery disease) Code(s): I25.10 - ATHSCL HEART DISEASE OF [place] CORONARY ARTERY W/O ANG PCTRS (4) Chronic systolic CHF (congestive heart failure) Code(s): I50.22 - CHRONIC SYSTOLIC (CONGESTIVE) HEART FAILURE (5) Diabetes mellitus Code(s): E11.9 - TYPE 2 DIABETES MELLITUS WITHOUT COMPLICATIONS Qualifiers: Diabetes mellitus type: type 2 (6) Fever Code(s): R50.9 - FEVER, UNSPECIFIED (7) Hx of CABG Code(s): Z95.1 - PRESENCE OF AORTOCORONARY BYPASS GRAFT (8) Hyperlipidemia Code(s): E78.5 - HYPERLIPIDEMIA, UNSPECIFIED (9) Hypertension Code(s): I10 - ESSENTIAL (PRIMARY) HYPERTENSION (10) ICD (implantable cardioverter-defibrillator) malfunction Code(s): T82.9XXA - UNSP COMP OF CARDIAC AND VASCULAR PROSTH DEV/GRFT, INIT Assessment/Plan IMP DYSPNEA IMPROVED ACUTE ON CHRONIC CHF IMPROVED SEVERE LV DYSFUNCTION S/P ICD PULMONARY HTN CHEST PAIN ASHD S/P CABG,S/P STENTS HTN DM + TROPONIN PLAN LASIX PER CARDIOLOGY O2 INHALED BRONCHODILATORS DAILY WT [facility] [place] Problem List - Problems (1) Acute on chronic systolic (congestive) heart failure Code(s): I50.23 - ACUTE ON CHRONIC SYSTOLIC (CONGESTIVE) HEART FAILURE (2) Chest pain Code(s): R07.9 - CHEST PAIN, UNSPECIFIED Qualifiers: Chest pain type: unspecified Qualified Code(s): R07.9 - Chest pain, unspecified (3) CAD (coronary artery disease) Code(s): I25.10 - ATHSCL HEART DISEASE OF [place] CORONARY ARTERY W/O ANG PCTRS (4) Chronic systolic CHF (congestive heart failure) Code(s): I50.22 - CHRONIC SYSTOLIC (CONGESTIVE) HEART FAILURE (5) Diabetes mellitus Code(s): E11.9 - TYPE 2 DIABETES MELLITUS WITHOUT COMPLICATIONS (6) Fever Code(s): R50.9 - FEVER, UNSPECIFIED (7) Hx of CABG Code(s): Z95.1 - PRESENCE OF AORTOCORONARY BYPASS GRAFT (8) Hyperlipidemia Code(s): E78.5 - HYPERLIPIDEMIA, UNSPECIFIED (9) Hypertension Code(s): I10 - ESSENTIAL (PRIMARY) HYPERTENSION (10) ICD (implantable cardioverter-defibrillator) malfunction Code(s): T82.9XXA - UNSP COMP OF CARDIAC AND VASCULAR PROSTH DEV/GRFT, INIT
[2018-05-03 14:37] VITALS: BMI 27.1
--- NOTE | 2018-05-03 17:20 | DS ---
Physical Examination Vital Signs: Vital Signs Temperature 97.7 F 05/03/18 14:00 Pulse Rate 50 L 05/03/18 14:00 Respiratory Rate 18 05/03/18 14:00 Blood Pressure 111/62 05/03/18 14:00 O2 Sat by Pulse Oximetry (%) 98 05/03/18 10:00 Findings/Remarks: Patient is a 77 y/o male admitted with complaints of non-radiating, mid chest pain. Patient has history of cardiac stents x 4 and pacemaker present. Initial CXR showed congestive changes, repeat CXR showed improvement. SPironolactone was added to med regimen as per cardiology recommendation. Patient has been followed by cardiology while inpatient. Currently denies chest pain, sob, dizziness. Constitutional: Yes: Well Nourished, No Distress, Calm Eyes: Yes: Conjunctiva Clear HENT: Yes: Atraumatic Neck: Yes: Supple Cardiovascular: Yes: Regular Rate and Rhythm Respiratory: Yes: Regular, CTA Bilaterally Gastrointestinal: Yes: Normal Bowel Sounds, Soft Musculoskeletal: Yes: WNL Extremities: Yes: WNL Edema: No Integumentary: Yes: WNL Psychiatric: Yes: Alert, Oriented Labs: CBC, BMP 05/02/18 11:15 05/02/18 11:15 Discharge Summary Reason For Visit: CHEST PAIN Current Active Problems Acute on chronic systolic (congestive) heart failure (Acute) Atypical chest pain (Acute) Chest pain (Acute) Procedures: Principal: CXR. ECG. Chest CT scan. Echocardiogram Hospital Course: Patient currently on examination denies chest pain, SOB, or dizziness. Instructed to follow up with cardiology for outpatient stress test. Follow up with cardiology for pacemaker checks every 3 months. Patient is cleared by cardiology to be followed up as outpatient. VSS and no complaints verbalized on examination. Condition: Stable - Instructions Diet, Activity, Other Instructions: cont with ceftin BID FU with Cardiology for outpatient stress test follow up with PMD 3-4 days after discharge cont with current med regimen low sodium diet if experience chest pain or SOB call 911 Referrals: Tammie Bustillo MD [Primary Care Provider] - 1 Week Galindo Mercedes MD [Staff Physician] - 2 Weeks (for stress test) Disposition: VNS/HOME HEALTH CARE - Home Medications Comprehensive Discharge Medication List: Ambulatory Orders Aspirin 81 mg PO DAILY 07/28/12 Atorvastatin Ca [Lipitor] 40 mg PO HS 07/28/12 Furosemide [Lasix -] 40 mg PO DAILY 07/28/12 Glipizide [Glucotrol -] 5 mg PO DAILY@0700 07/28/12 Acetaminophen [Tylenol .Regular Strength -] 650 mg PO Q4H PRN #0 tablet Albuterol 0.083% Nebulizer Kaycee [Ventolin 0.083% Nebulizer Soln -] 1 amp NEB Q4H PRN #1 box 05/09/16 Lisinopril [Prinivil] 2.5 mg PO DAILY #30 tablet 05/09/16 Tiotropium [place] [Spiriva] 1 puff IH DAILY #1 inh 05/09/16 Carvedilol [Coreg -] 25 mg PO BID tablet 04/28/18 Spironolactone [Aldactone -] 25 mg PO DAILY #30 tablet 04/28/18
[2018-05-03 20:10] VITALS: PULSE 50
[2018-05-03] MEDS: ATORVASTATIN CA 40 MG TABLET (FP) PO SCH (21:09)
[2018-05-04] MEDS: INSULIN SLIDING SCALE (NOVOLOG) 1 VIAL SQ SCH ×2 (06:05→12:08)
[2018-05-04] MEDS: SPIRONOLACTONE 25 MG TABLET (FP) PO SCH (09:54)
[2018-05-04] MEDS: LISINOPRIL 5 MG TABLET (FP) PO SCH (09:54)
[2018-05-04] MEDS: ENOXAPARIN NA (PORCINE) 40 MG/0.4 ML DISP.SYRIN SQ SCH (09:55)
[2018-05-04] MEDS: CARVEDILOL 25 MG TABLET (FP) PO SCH (09:55)
[2018-05-04] MEDS: FUROSEMIDE 40 MG/4 ML INJECTABLE VIAL IVPUSH SCH (09:55)
[2018-05-04] MEDS: CEFUROXIME AXETIL 500 MG TABLET PO SCH (09:56)
[2018-05-04] MEDS ORDERED: PT OWN MED DRAWER 7, Y5N ONE (10:01)
[2018-05-04] MEDS: glipiZIDE 5 MG TABLET (FP) PO SCH (10:06)
[2018-05-04] MEDS: ASPIRIN 81 MG CHEWABLE TABLETS PO SCH (10:06)
[2018-05-04] MEDS: TIOTROPIUM BROMIDE 2.5 MCG (SPIRIVA) RESPIMAT INHALER IH SCH (10:06)
--- NOTE | 2018-05-04 13:43 | PN ---
Progress Note (short form) - Note Progress Note: PULMONARY Denies shortness of breath, cough or wheezing. Vital Signs Period Temp Pulse Resp BP Sys/Alfaro Pulse Ox Last 24 Hr 97.1 F-99.3 F 50-51 18-19 108-134/49-63 97-97 Gen: NAD at rest Heart: RRR Lung: decreased breath sounds at the bases Abd: soft, nontender Ext: no edema CBC, BMP 05/02/18 11:15 05/02/18 11:15 Active Medications Acetaminophen (Tylenol -) 650 mg PO Q6H PRN PRN Reason: PAIN Last Admin: 04/28/18 05:44 Dose: 650 mg Aspirin (Asa -) 81 mg PO DAILY [facility] Last Admin: 05/04/18 10:06 Dose: 81 mg Atorvastatin Calcium (Lipitor -) 40 mg PO HS [facility] Last Admin: 05/03/18 21:09 Dose: 40 mg Carvedilol (Coreg -) 25 mg PO BID [facility] Last Admin: 05/04/18 09:55 Dose: 25 mg Cefuroxime Axetil (Ceftin -) 500 mg PO BID [facility] Last Admin: 05/04/18 09:56 Dose: 500 mg Furosemide (Lasix Injection -) 40 mg IVPUSH DAILY [facility] Last Admin: 05/04/18 09:55 Dose: 40 mg Glipizide (Glucotrol -) 5 mg PO DAILY@0700 [facility] Last Admin: 05/04/18 10:06 Dose: 5 mg Guaifenesin/Codeine Phosphate (Robitussin Ac -) 5 ml PO Q4H PRN PRN Reason: COUGH Insulin Aspart (Novolog Vial Sliding Scale -) 1 vial SQ TIDAC [facility]; Protocol Last Admin: 05/04/18 12:08 Dose: Not Given Lisinopril (Prinivil) 2.5 mg PO DAILY [facility] Last Admin: 05/04/18 09:54 Dose: 2.5 mg Spironolactone (Aldactone -) 25 mg PO DAILY [facility] Last Admin: 05/04/18 09:54 Dose: 25 mg Tiotropium [place] (Spiriva Respimat) 1 puff IH DAILY [facility] Last Admin: 05/04/18 10:06 Dose: 1 puff A/P Acute on Chronic Systolic Heart Failure Pulmonary HTN CAD s/p CABG HTN DM +Troponins likely Demand Ischemia - continue lasix, aldactone - monitor urine output, creatinine - beta marcy - O2 as needed - DVT prophylaxis - d/c planning
[2018-05-04 15:15] VITALS: BP 134/58; TEMP 98.3
--- NOTE | 2018-05-04 16:44 | PN ---
Progress Note, Physician Chief Complaint: Pt A&Ox3; lying in bed;asymptomatic. No problem sleeping last night. History of Present Illness: The patient is a 77 year old male, with a significant past medical history of hypertension, diabetes, hyperlipidemia, CAD (s/p 4 stents) , s/p ICD ([employer], single chamber; battery replaced in 2013), who presents to the emergency department with, 2 days of chest pain. As per patient, his symptoms onset early yesterday morning while he was sitting down. He notes he believed the symptoms would resolve with relaxation but, after the symptoms persisted he called for EMS. He denies any recent shortness of breath, palpitations, or diaphoresis. He denies any recent fevers, chills, headache or dizziness. He denies any recent nausea, vomit, diarrhea or constipation. He denies any recent dysuria, frequency , urgency or hematuria. Allergies: NKDA Past surgical history: Cardiac stenting x4. Social History: Nonsmoker. Denies EtOH use and recreational drug use. Primary Care Physician: Dr. eRddy - Objective Vital Signs: Vital Signs Temperature 98.3 F 05/04/18 13:30 Pulse Rate 50 L 05/04/18 13:30 Respiratory Rate 16 05/04/18 13:30 Blood Pressure 134/58 L 05/04/18 13:30 O2 Sat by Pulse Oximetry (%) 97 05/04/18 09:00 Constitutional: Yes: No Distress Eyes: Yes: WNL HENT: Yes: WNL Neck: Yes: WNL Cardiovascular: Yes: S1, S2 (split) Respiratory: Yes: WNL Gastrointestinal: Yes: Soft ...Rectal Exam: Yes: Deferred Genitourinary: Yes: Anuria Breast(s): Yes: WNL Musculoskeletal: Yes: Muscle Weakness Extremities: Yes: WNL Edema: No Peripheral Pulses WNL: Yes Integumentary: Yes: WNL Neurological: Yes: Alert, Oriented Psychiatric: Yes: Other (anxiety) Labs: CBC, BMP 05/02/18 11:15 05/02/18 11:15 INR, PTT INR 1.33 (0.83-1.09) H 04/26/18 05:20 Problem List - Problems (1) CAD (coronary artery disease) Assessment/Plan: s/p coronary stents x 4 TNI mildly elevated (no significant change from one year ago). EKG: V pacing. Rec: Aggressive control of lipids (diet, exercise, statin). Nitrate (Imdur 30 mg dailly; s/l NTG prn) for chest discomfort. Control of severe systolic LV dysfunction (see "CHF"). Code(s): I25.10 - ATHSCL HEART DISEASE OF [place] CORONARY ARTERY W/O ANG PCTRS (2) Chronic systolic CHF (congestive heart failure) Assessment/Plan: severely reduced LVEF. On Coreg, lisinopril; furosemide prn Added spironolactone (Cr Clearance, K+ WNL). ICD interrogation (may be done as outpatient). F/u BUN/Cr, electrolytes, Is and Os, daily weight. Addendum: CXR 05/02/2018 shows marked improvement in CHF. 11 lb wt loss since admission. Asymptomatic (no chest pain, dyspnea, or palpitations). From cardiac standpoint, pt may be followed as outpatient. Code(s): I50.22 - CHRONIC SYSTOLIC (CONGESTIVE) HEART FAILURE (3) Diabetes mellitus Code(s): E11.9 - TYPE 2 DIABETES MELLITUS WITHOUT COMPLICATIONS Qualifiers: Diabetes mellitus type: type 2 (4) Elevated troponin Assessment/Plan: Mildly (and chronically)elevated TNI; CK WNL. No acute STT changes. Contributing factors of mild TNI (relatively unchanged since 04/2017) include increased demand from severe dilated cardiomyopathy. Pt is asymptomatic. From a cardiac standpoint, pt may be followed up as an outpatient (for stress MIBI). Code(s): R79.89 - OTHER SPECIFIED ABNORMAL FINDINGS OF BLOOD CHEMISTRY (5) Atypical chest pain Assessment/Plan: Pt has felt chest discomfort off and on for months; it usually occurs while at rest, lasts a few seconds, may return a few times during the day, then not recur for weeks. Denies ches pain with exertion. TNI mildly elevated; unchanged for the past year. EKG : Ventricular pacing. Pt may be followed as outpatient (was scheduled for stress MIBI today, but ate breakfast). Addendum (18:00 on 04/28/18): Pt was asymptomatic all day until his family arrived in late afternoon to pick him up; he then told them (his brother, and his ex-) that he felt central chest pressure at rest. He was worried about returning home now because he would be alone in the house until the morning (has an aide during the day). TNI and EKG essentially unchanged overnight. EKG: unchanged (ventricular paced rhythm). Add Imdur 30 mg daily, and s/l NTG prn. Spironolactone was started; continue furosemide. As discussed before, pt may be followed as an outpatient from cardiac standpoint. He is reluctant to return home, saying at various points that he does not feel well, feel ready, or that he is alone at home (though he apparently has an aid every day for 8 hrs) or does not have a ride home. Code(s): R07.89 - OTHER CHEST PAIN
== END 2018-05-04 15:46 | disposition home health service (06) | DRG 190 ==
LOC: JER 02:02 → JERBED 10:52 → J4S 20:38
PROVIDERS: ADMIT Internal Medicine; ATTEND Family Medicine
DX: J44.1 Chronic obstructive pulmonary disease with (acute) exacerbation (principal); I50.23 Acute on chronic systolic (congestive) heart failure; I11.0 Hypertensive heart disease with heart failure; I25.10 Atherosclerotic heart disease of native coronary artery without angina pectoris; J44.9 Chronic obstructive pulmonary disease, unspecified; J20.9 Acute bronchitis, unspecified; I27.20 Pulmonary hypertension, unspecified; E78.5 Hyperlipidemia, unspecified; E11.9 Type 2 diabetes mellitus without complications; Z98.61 Coronary angioplasty status; R07.89 Other chest pain; R79.89 Other specified abnormal findings of blood chemistry; Z95.1 Presence of aortocoronary bypass graft; R00.1 Bradycardia, unspecified
CPT/HCPCS: 36415; 71045-TC-FY; 71046-TC-FY; 71250-TC; 80048; 80053; 80061; 81003; 82550; 82962; 83036; 83721; 83735; 83880; 84443; 84484; 85025; 85027; 85610; 85730; 87040; 87086; 87804; 87899; 90688; 93005; 93010; 93306-TC; 94640; 99282-25; G0008

== ENCOUNTER 2018-05-17 13:23 | Observation (INO) | payer OTHER ==
--- NOTE | 2018-05-17 13:56 | PDOC ---
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 Patient is slightly inconsistent with his story and difficult to get answer from but his son at bedside states that he appears weak and different and that he was complaining of left arm numbness at home along with some right shoulder pain and left arm numbness. His appetite has been decreased today but denies nausea, vomiting, fevers, chills, cough, chest pain, headache, syncope, or other symptoms. 05/17/18 14:00 Past History - Past Medical History Allergies/Adverse Reactions: Allergies Allergy/AdvReac Type Severity Reaction Status Date / Time No Known Allergies Allergy Verified 05/17/18 13:34 Home Medications: Ambulatory Orders Aspirin 81 mg PO DAILY 07/28/12 Atorvastatin Ca [Lipitor] 40 mg PO HS 07/28/12 Furosemide [Lasix -] 40 mg PO DAILY 07/28/12 Acetaminophen [Tylenol .Regular Strength -] 650 mg PO Q4H PRN #0 tablet Albuterol 0.083% Nebulizer Kaycee [Ventolin 0.083% Nebulizer Soln -] 1 amp NEB Q4H PRN #1 box 05/09/16 Tiotropium [place] [Spiriva] 1 puff IH DAILY #1 inh 05/09/16 Carvedilol [Coreg -] 25 mg PO BID tablet 04/28/18 Amlodipine Besylate 5 mg PO DAILY 05/17/18 Losartan Potassium 25 mg PO DAILY 05/17/18 Memantine HCl 10 mg PO DAILY 05/17/18 Metformin HCl [Glucophage] 500 mg PO DAILY 05/17/18 Anemia: No Asthma: No Cancer: No Cardiac Disorders: Yes (STENT, PACEMAKER) CVA: No COPD: No CHF: No Dementia: No Diabetes: Yes (NIDDM) GI Disorders: Yes (VILLOUS MASS) Disorders: No HTN: Yes Hypercholesterolemia: Yes Liver Disease: No Seizures: No Thyroid Disease: No - Surgical History Abdominal Surgery: No Appendectomy: No Cardiac Surgery: Yes (OPEN HEART SX, STENT PLACEMENT) Cholecystectomy: No Lung Surgery: No Neurologic Surgery: No Orthopedic Surgery: No - Immunization History Immunization Up to Date: Yes - Suicide/Smoking/Psychosocial Hx Smoking History: Never smoked Have you smoked in the past 12 months: No Information on smoking cessation initiated: No Hx Alcohol Use: No Drug/Substance Use Hx: No Substance Use Type: None Hx Substance Use Treatment: No Review of Systems - Review of Systems Constitutional: No: Chills, Diaphoresis, Fever HEENTM: No: Blurred Vision, Tearing Respiratory: Yes: Shortness of Breath. No: Cough, Orthopnea Cardiac (ROS): Yes: Lightheadedness. No: Chest Pain, Edema, Irregular Heart Rate, Palpitations, Chest Tightness ABD/GI: Yes: Poor Appetite, Poor Fluid Intake. No: Abdominal Distended, Diarrhea, Nausea, Vomiting : No: Burning, Dysuria, Discharge Musculoskeletal: No: Back Pain, Joint Pain Integumentary: No: Bruising, Erythema, Flushing Neurological: No: Headache, Numbness, Paresthesia Psychiatric: No: Anxiety, Depression Endocrine: No: Excessive Sweating, Intolerance to Heat, Increased Thirst, Increased Urine Hematologic/Lymphatic: No: Anemia, Blood Clots, Easy Bleeding *Physical Exam - Vital Signs Last Vital Signs Temp Pulse Resp BP Pulse Ox 97 F L 64 16 156/84 100 05/17/18 13:33 05/17/18 13:33 05/17/18 13:33 05/17/18 13:33 05/17/18 13:33 - Physical Exam General Appearance: Yes: Nourished, Appropriately Dressed. No: Apparent Distress HEENT: positive: EOMI, LOVELY, Normal ENT Inspection, Normal Voice. negative: Symmetrical, TMs Normal Neck: positive: Trachea midline, Normal Thyroid, Supple. negative: Tender, Rigid Respiratory/Chest: positive: Lungs Clear, Normal Breath Sounds. negative: Chest Tender, Respiratory Distress, Accessory Muscle Use Cardiovascular: positive: Regular Rhythm, Regular Rate, Murmur, Systolic Murmur Gastrointestinal/Abdominal: positive: Normal Bowel Sounds, Flat, Soft. negative : Tender, Pulsatile Mass Lymphatic: negative: Adenopathy, Tenderness Musculoskeletal: positive: Normal Inspection. negative: Decreased Range of Motion Extremity: positive: Normal Capillary Refill, Normal Inspection, Normal Range of Motion. negative: Tender Integumentary: positive: Normal Color, Dry, Warm Neurologic: positive: Fully Oriented, Alert, Normal Mood/Affect, Normal Response , Motor Strength 5/5 (although does appear overall very week. ) Moderate Sedation - Procedure Monitoring Vital Signs: Procedure Monitoring Vital Signs Temperature 97 F L 05/17/18 13:33 Pulse Rate 64 05/17/18 13:33 Respiratory Rate 16 05/17/18 13:33 Blood Pressure 156/84 05/17/18 13:33 O2 Sat by Pulse Oximetry (%) 100 05/17/18 13:33 ED Treatment Course - LABORATORY CBC & Chemistry Diagram: 05/17/18 14:50 05/17/18 16:45 Medical Decision Making - Medical Decision Making 77 year old male with very poor coronary arteries s/p CABG and stents presenting with with right arm pain, left arm numbness, weakness, and shortness of breath. Labs were WNL except for elevated troponin to 0.1. Spoke to Dr. Anthony kelly for [facility] and he agrees that patient should come in for a tele obs. EKG is sinus ventricularly paced rhythm that is unchanged from the previous. 05/17/18 19:11 *DC/Admit/Observation/Transfer Diagnosis at time of Disposition: Elevated troponin - Discharge Dispostion Condition at time of disposition: Stable Decision to Admit order: Yes - Referrals Referrals: Tammie Bustillo MD [Primary Care Provider] - - Patient Instructions - Post Discharge Activity
--- NOTE | 2018-05-17 15:11 | PDOC ---
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 Allergies: NKDA - Medical Decision Making 05/17/18 15:43 Documentation prepared by Cayla Ramirez, acting as medical assistant for Elisabeth Bermudez MD <Cayla Ramirez - Last Filed: 05/17/18 15:40> - Resident Resident Name: Kylah Ahumada - ED Attending Attestation I have performed the following: I have examined & evaluated the patient, The case was reviewed & discussed with the resident, I agree w/resident's findings & plan, Exceptions are as noted - Physicial Exam PE: 05/17/18 17:12 GENERAL: The patient is in no acute distress, Awake and Alert, answers questions appropriately. EYES: PERRLA, EOMI, sclera anicteric, conjunctiva clear. ENT: Ears normal, nares patent, oropharynx clear without exudates. Moist mucous membranes. NECK: Normal range of motion, supple LUNGS: Breath sounds equal, clear to auscultation bilaterally. No wheezes, and no crackles. HEART:Regular rate and rhythm, normal S1 and S2 without murmur, rub or gallop. ABDOMEN: Soft, nontender, normoactive bowel sounds. No guarding, no rebound. No masses palpable. EXTREMITIES: Normal range of motion, no edema. NEUROLOGICAL: Cranial nerves II through XII grossly intact. Normal speech. No focal neurological deficits. MUSCULOSKELETAL: Back non-tender to palpation SKIN: Warm, Dry, normal turgor, no rashes or lesions noted. - Medical Decision Making Pt brought to the ER for unclear complaints He was apparently sleepy this morning [employer] called EMS instead of the existing plan to call pt family Pt has no complaints at this time 05/17/18 17:11 EKG - Paced at 50 bpm 05/17/18 17:11 Laboratory Tests 05/17/18 05/17/18 14:50 16:00 WBC 6.6 Hgb 14.0 Hct 41.9 Plt Count 248 Urine Blood Negative Urine Nitrite Negative Ur Leukocyte Esterase Negative Laboratory Tests 05/17/18 16:45 BUN 22 H Creatinine 1.1 Alkaline Phosphatase 118 H Troponin I 0.10 H Pt at his baseline now Trop indeterminant Case reviewed with Cardiology Will plan to place on observation <Elisabeth Bermudez - Last Filed: 05/18/18 12:55>
[2018-05-17 16:29] LABS: URINE APPEARANCE SLCLOUDY; URINE BILIRUBIN NEGATIVE (<2.0 mg/dL); URINE COLOR YELLOW; URINE GLUCOSE (UA) NEGATIVE (NEGATIVE); URINE KETONE NEGATIVE (NEGATIVE); URINE LEUK ESTERASE NEGATIVE (NEGATIVE); URINE NITRITE NEGATIVE (NEGATIVE); URINE PROTEIN NEGATIVE (NEGATIVE); URINE UROBILINOGEN NEGATIVE mg/dL (0.2-1.0)
[2018-05-17 16:56] LABS: BASO % 0.6 % (0-2.0); EOS % 2.4 % (0-4.5); HEMATOCRIT 41.9 % (35.4-49); LYMPH % 22.8 % (8-40); MCH 29.3 pg (25.7-33.7); MCHC 33.5 g/dl (32.0-35.9); MEAN CELL VOLUME 87.4 fl (80-96); MEAN PLT VOLUME 9.5 fl (7.5-11.1); MONO % 7.7 % (3.8-10.2); NEUT % 66.5 % (42.8-82.8); PLATELET COUNT 248 K/MM3 (134-434); RBC 4.79 M/mm3 (4.00-5.60); RDW 14.9 % (11.9-15.9); WHITE BLOOD COUNT 6.6 K/mm3 (4.0-10.0)
[2018-05-17 17:47] LABS: GLUCOSE,RANDOM 110 mg/dL (74-106)
[2018-05-17 17:48] LABS: ANION GAP 8 MMOL/L (8-16); BLOOD UREA NITROGEN 22 mg/dL (7-18); CALCIUM 8.8 mg/dL (8.5-10.1); CHLORIDE 106 mmol/L (98-107); CO2 30 mmol/L (21-32); CREATININE 1.1 mg/dL (0.55-1.3); POTASSIUM 4.4 mmol/L (3.5-5.1); SODIUM 144 mmol/L (136-145)
[2018-05-17 17:49] LABS: ALBUMIN 3.7 g/dl (3.4-5.0); ALK PHOS 118 U/L (45-117); BILIRUBIN,TOTAL 0.7 mg/dL (0.2-1); SGOT/AST 19 U/L (15-37); SGPT/ALT 22 U/L (13-61); TOT PROT 7.6 g/dl (6.4-8.2)
[2018-05-17 17:52] LABS: N-TERMINAL BNP 2162 pg/ml (5-450)
--- NOTE | 2018-05-17 19:09 | EKG ---
Test Reason : Blood Pressure : / mmHG Vent. Rate : 050 BPM Atrial Rate : 065 BPM P-R Int : 000 ms QRS Dur : 166 ms QT Int : 538 ms P-R-T Axes : 000 -57 110 degrees QTc Int : 490 ms SINUS RHYTHM WITH COMPLETE HEART BLOCK AND Ventricular-paced rhythm ABNORMAL ECG WHEN COMPARED WITH ECG OF 29-APR-2018 12:06, PREMATURE VENTRICULAR COMPLEXES ARE NO LONGER PRESENT VENT. RATE HAS DECREASED BY 10 BPM Confirmed by DAGOBERTO ORO MD ([id number]) on 05/17/2018 7:08:43 PM Referred By: Confirmed By:DAGOBERTO ORO MD
[2018-05-17] MEDS ORDERED: ASPIRIN 81 MG CHEWABLE TABLETS PO ONE ×2 (19:28)
--- NOTE | 2018-05-17 19:51 | PN ---
Teaching Attending Note Name of Resident: Luis Diehl ATTENDING PHYSICIAN STATEMENT I saw and evaluated the patient. I reviewed the resident's note and discussed the case with the resident. I agree with the resident's findings and plan as documented. 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 He was discharged two weeks ago from [facility] after admission for acute exacerbation of CHF. His son at bedside states that he appears weak and different and that he was complaining of left arm numbness at home along with some right shoulder pain and left arm numbness. His appetite has been decreased today but denies nausea, vomiting, fevers, chills, cough, chest pain, headache or syncope. OBJECTIVE: Alert Vital Signs Period Temp Pulse Resp BP Sys/Alfaro Pulse Ox Last 24 Hr 97 F 64 16 156/84 100 HEENT: No Jaundice, eye redness or discharge, PERRLA, EOMI. Normocephalic, atraumatic. External ears are normal and hearing is grossly intact. No nasal discharge. Neck: Supple, nontender. No palpable adenopathy or thyromegaly. No JVD Chest: Good effort. Clear to auscultation and percussion. Heart: Irregular. No S3 or rub; 2/6 [place] Abdomen: Not distended, soft, nontender and no HSM. No rebound or guarding. Normoactive bowel sounds. Ext: Peripheral pulses intact. No leg edema. Skin: Warm and dry. No petechiae, rash or ecchymosis. Neuro: Alert. Oriented x3. CN 2-12 grossly intact. Sensation grossly intact in all four extremities and DTR are symmetric. Home Medications Medication Instructions Recorded Aspirin 81 mg PO DAILY 07/28/12 Atorvastatin Ca [Lipitor] 40 mg PO HS 07/28/12 Furosemide [Lasix -] 40 mg PO DAILY 07/28/12 Acetaminophen [Tylenol .Regular 650 mg PO Q4H PRN #0 tablet 05/09/16 Strength -] Albuterol 0.083% Nebulizer Kaycee 1 amp NEB Q4H PRN #1 box 05/09/16 [Ventolin 0.083% Nebulizer Soln -] Tiotropium [place] [Spiriva] 1 puff IH DAILY #1 inh 05/09/16 Carvedilol [Coreg -] 25 mg PO BID tablet 04/28/18 Amlodipine Besylate 5 mg PO DAILY 05/17/18 Losartan Potassium 25 mg PO DAILY 05/17/18 Memantine HCl 10 mg PO DAILY 05/17/18 Metformin HCl [Glucophage] 500 mg PO DAILY 05/17/18 Abnormal Lab Results 05/17/18 16:45 BUN 22 H Random Glucose 110 H Alkaline Phosphatase 118 H Troponin I 0.10 H B-Natriuretic Peptide 2162 H ASSESSMENT AND PLAN: 1. Elevated Troponin - Patient has a history of chronic troponin elevation not associated with ACS. Likely due to demand ischemia and severe CHF. No significant new changes on CXR. EKG shows complete heart block with ventricular paced rhythm - but no new significant changes. Will monitor on telemetry and trend troponin to rule out ACS. Will get a head CT scan in view of myriad nonspecific constitutional symptoms. 2. DM - For now, we will hold the home diabetes drugs and implement sliding scale insulin regimen. Provide comprehensive diabetes care with patient teaching and counseling about the importance of euglycemia, eye care and foot care. 3. DVT prophylaxis - Lovenox 40 mg SQ q 24 hours. 4. Advance directives - Full code
[2018-05-17] MEDS ORDERED: ASPIRIN 81 MG CHEWABLE TABLETS ONE (19:59)
--- NOTE | 2018-05-17 20:29 | HP ---
CHIEF COMPLAINT: Malaise PCP: Dr. Bustillo HISTORY OF PRESENT ILLNESS: The patient is a 77 yo m w/ PMH HTN, DM, CHF, [place] s/p CABG, COPD, complete heart block s/p pacemaker/AICD who c/o a 1 week hx of generalized malaise. The patient states that for the last 1 week he has been feeling "not himself." When questioned further, he was unable to provide any additional history. Patient denies chest pain, SOB, abdominal pain, fevers, chills, sick contacts, arm numbness, arm weakness, AMS or generalized weakness. Of note, the patient's son stated to the ED staff that the patient was c/o chest pressure, left arm numbness and right shoulder pain, which prompted him to take his father to the ED for evaluation. When questioned regarding these complaints, the patient states that he did not feel any of these. In the ED, the patient had an unchanged EKG, denied any chest pain/pressure/SOB , but was found to have an elevted troponin to .10. The patient had chronically elevated troponin as per EMR records. ED staff contacted Dr. 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 Recent Travel: none PAST MEDICAL HISTORY: see HPI PAST SURGICAL HISTORY: CABG ICD placement Social History: Smoking: denies Alcohol: denies Drugs: denies Family History: patient unable to recall. Allergies No Known Allergies Allergy (Verified 05/17/18 13:34) HOME MEDICATIONS: Home Medications Medication Instructions Recorded Aspirin 81 mg PO DAILY 07/28/12 Atorvastatin Ca [Lipitor] 40 mg PO HS 07/28/12 Furosemide [Lasix -] 40 mg PO DAILY 07/28/12 Acetaminophen [Tylenol .Regular 650 mg PO Q4H PRN #0 tablet 05/09/16 Strength -] Albuterol 0.083% Nebulizer [place] 1 amp NEB Q4H PRN #1 box 05/09/16 [Ventolin 0.083% Nebulizer Soln -] Tiotropium [place] [Spiriva] 1 puff IH DAILY #1 inh 05/09/16 Carvedilol [Coreg -] 25 mg PO BID tablet 04/28/18 Amlodipine Besylate 5 mg PO DAILY 05/17/18 Losartan Potassium 25 mg PO DAILY 05/17/18 Memantine HCl 10 mg PO DAILY 05/17/18 Metformin HCl [Glucophage] 500 mg PO DAILY 05/17/18 REVIEW OF SYSTEMS CONSTITUTIONAL: Absent: fever, chills, diaphoresis, generalized weakness, loss of appetite, weight change HEENT: Absent: rhinorrhea, nasal congestion, throat pain, throat swelling, difficulty swallowing, mouth swelling, ear pain, eye pain, visual changes CARDIOVASCULAR: Absent: chest pain, syncope, palpitations, irregular heart rate, lightheadedness , peripheral edema RESPIRATORY: Absent: cough, shortness of breath, dyspnea with exertion, orthopnea, wheezing, stridor, hemoptysis GASTROINTESTINAL: Absent: abdominal pain, abdominal distension, nausea, vomiting, diarrhea, constipation, melena, hematochezia GENITOURINARY: Absent: dysuria, frequency, urgency, hesitancy, hematuria, flank pain, genital pain MUSCULOSKELETAL: Absent: myalgia, arthralgia, joint swelling, back pain, neck pain SKIN: Absent: rash, itching, pallor HEMATOLOGIC/IMMUNOLOGIC: Absent: easy bleeding, easy bruising, lymphadenopathy, frequent infections ENDOCRINE: Absent: unexplained weight gain, unexplained weight loss, heat intolerance, cold intolerance NEUROLOGIC: Absent: headache, focal weakness or paresthesias, dizziness, unsteady gait, seizure, mental status changes, bladder or bowel incontinence PSYCHIATRIC: Absent: anxiety, depression, suicidal or homicidal ideation, hallucinations. PHYSICAL EXAMINATION Vital Signs - 24 hr 05/17/18 13:33 Temperature 97 F L Pulse Rate 64 Respiratory 16 Rate Blood Pressure 156/84 O2 Sat by Pulse 100 Oximetry (%) GENERAL: Awake, alert, and fully oriented, in no acute distress. HEAD: Normal with no signs of trauma. EYES: Pupils equal, round and reactive to light, extraocular movements intact, sclera anicteric, conjunctiva clear. No lid lag. NECK: Normal range of motion, supple without lymphadenopathy, JVD, or masses. LUNGS: Breath sounds equal, clear to auscultation bilaterally. No wheezes, and no crackles. No accessory muscle use. HEART: Regular rate and rhythm, normal S1 and S2. Systolic ejection murmur heard all across the precordium without discerable radiation. ABDOMEN: Soft, nontender, not distended, normoactive bowel sounds, no guarding, no rebound, no masses. No hepatomegaly or splenomegaly. LOWER EXTREMITIES: 2+ pulses, warm, well-perfused. No calf tenderness. No peripheral edema. NEUROLOGICAL: Cranial nerves II-X intact. Normal speech. Strength 5/5 in all 4 limbs SKIN: Warm, dry, normal turgor, no rashes or lesions noted, normal capillary refill. Laboratory Results - last 24 hr 05/17/18 05/17/18 05/17/18 14:50 14:50 16:00 WBC 6.6 RBC 4.79 Hgb 14.0 Hct 41.9 MCV 87.4 MCH 29.3 MCHC 33.5 RDW 14.9 Plt Count 248 MPV 9.5 D Absolute Neuts (auto) 4.4 Neutrophils % 66.5 Lymphocytes % 22.8 D Monocytes % 7.7 Eosinophils % 2.4 Basophils % 0.6 Nucleated RBC % 0 Sodium Cancelled Potassium Cancelled Chloride Cancelled Carbon Dioxide Cancelled Anion Gap Cancelled BUN Cancelled Creatinine Cancelled Creat Clearance w eGFR Cancelled Random Glucose Cancelled Calcium Cancelled Phosphorus Cancelled Magnesium Cancelled Total Bilirubin Cancelled AST Cancelled ALT Cancelled Alkaline Phosphatase Cancelled Troponin I Cancelled B-Natriuretic Peptide Cancelled Total Protein Cancelled Albumin Cancelled Urine Color Yellow Urine Appearance Slcloudy Urine pH 6.0 Ur Specific [place] 1.023 Urine Protein Negative Urine Glucose (UA) Negative Urine Ketones Negative Urine Blood Negative Urine Nitrite Negative Urine Bilirubin Negative Urine Urobilinogen Negative Ur Leukocyte Esterase Negative 05/17/18 16:45 WBC RBC Hgb Hct MCV MCH MCHC RDW Plt Count MPV Absolute Neuts (auto) Neutrophils % Lymphocytes % Monocytes % Eosinophils % Basophils % Nucleated RBC % Sodium 144 Potassium 4.4 Chloride 106 Carbon Dioxide 30 Anion Gap 8 BUN 22 H Creatinine 1.1 Creat Clearance w eGFR > 60 Random Glucose 110 H Calcium 8.8 Phosphorus Magnesium Total Bilirubin 0.7 AST 19 ALT 22 Alkaline Phosphatase 118 H Troponin I 0.10 H B-Natriuretic Peptide 2162 H Total Protein 7.6 Albumin 3.7 Urine Color Urine Appearance Urine pH Ur Specific Soso Urine Protein Urine Glucose (UA) Urine Ketones Urine Blood Urine Nitrite Urine Bilirubin Urine Urobilinogen Ur Leukocyte Esterase ASSESSMENT/PLAN: The patient is a 77 yo f w/ PMH HTN, DM, HLD, CAD s/p IA & CABG who comes into the ED c/o a 1 week history of "not feeling himself." #Generalized malaise -will observe overnight and trend trop and EKG as per cardiology r/o ACS -As this patient with multiple comorbidities comes in c/o vague complaints, will order head CT r/o intracranial pathology -Cardiology eval in the AM: Dr. Alvarez #DM -BGM ACHS -ISS ACHS #HTN -c/w home amlodipine 5mg daily -c/w home losartan 25mg daily #CHF -c/w home lasix 40mg daily #CAD -c/w home coreg 25mg BID -c/w home ASA 81mg daily #COPD -c/w home albuterol and spiriva #FEN -no fluids indicated -lytes wnl -diabetic sodium controlled diet #Prophy -SCDs; patient anticipated to stay in hospital less than 48 hrs #Dispo -observe on tele, cards eval in am Visit type - Emergency Visit Emergency Visit: Yes ED Registration Date: 05/17/18 Care time: The patient presented to the Emergency Department on the above date and was hospitalized for further evaluation of their emergent condition. - New Patient This patient is new to me today: Yes Date on this admission: 05/17/18 - Critical Care Critical Care patient: No
--- NOTE | 2018-05-17 20:42 | CON.CARD ---
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 He was discharged two weeks ago from [facility] after admission for acute exacerbation of CHF. His son at bedside states that he appears weak and different and that he was complaining of left arm numbness at home along with some right shoulder pain and left arm numbness. His appetite has been decreased today but denies nausea, vomiting, fevers, chills, cough, chest pain, headache or syncope. - Past Medical History Cardio/Vascular: Yes: CAD (Stent placement.), CHF, HTN, Hyperlipdemia. No: AFIB Pulmonary: Yes: Bronchitis, Pneumonia - Past Surgical History Past Surgical History: Yes: AICD, CABG, Stent (coronary) - Alcohol/Substance Use Hx Alcohol Use: No History of Substance Use: reports: None - Smoking History Smoking history: Never smoked Have you smoked in the past 12 months: No - Social History Usual Living Arrangement: Alone Home Medications - Allergies Allergies/Adverse Reactions: Allergies Allergy/AdvReac Type Severity Reaction Status Date / Time No Known Allergies Allergy Verified 05/17/18 13:34 - Home Medications Home Medications: Ambulatory Orders Acetaminophen [Tylenol .Regular Strength -] 650 mg PO Q4H PRN #0 tablet Albuterol 0.083% Nebulizer Kaycee [Ventolin 0.083% Nebulizer Soln -] 1 amp NEB Q4H PRN #1 box 05/09/16 Tiotropium [place] [Spiriva] 1 puff IH DAILY #1 inh 05/09/16 Aspirin 81 mg PO DAILY #30 tab.chew 05/18/18 Atorvastatin Ca [Lipitor] 40 mg PO HS #30 tablet 05/18/18 Carvedilol [Coreg -] 25 mg PO BID #60 tablet 05/18/18 Furosemide [Lasix -] 40 mg PO DAILY #30 tablet 05/18/18 Losartan Potassium 25 mg PO DAILY #30 tablet 05/18/18 Memantine HCl 10 mg PO DAILY #30 tablet 05/18/18 Metformin HCl [Glucophage] 500 mg PO DAILY #30 tablet 05/18/18 Spironolactone [Aldactone -] 25 mg PO DAILY #30 tablet 05/18/18 Review of Systems - Review of Systems Constitutional: reports: No Symptoms Eyes: reports: No Symptoms HENT: reports: No Symptoms Neck: reports: No Symptoms Cardiovascular: reports: Chest Pain Gastrointestinal: reports: No Symptoms Genitourinary: reports: No Symptoms Breasts: reports: No Symptoms Reported Musculoskeletal: reports: No Symptoms Integumentary: reports: No Symptoms Neurological: reports: No Symptoms Endocrine: reports: No Symptoms Hematology/Lymphatic: reports: No Symptoms Psychiatric: reports: No Symptoms Vital Signs: Vital Signs Temperature 97 F L 05/17/18 13:33 Pulse Rate 64 05/17/18 13:33 Respiratory Rate 16 05/17/18 13:33 Blood Pressure 156/84 05/17/18 13:33 O2 Sat by Pulse Oximetry (%) 100 05/17/18 13:33 Constitutional: Yes: Well Nourished, No Distress, Calm Eyes: Yes: WNL, Conjunctiva Clear, EOM Intact HENT: Yes: WNL, Atraumatic, Normocephalic Neck: Yes: WNL, Supple, Trachea Midline Respiratory: Yes: WNL, Regular, CTA Bilaterally Gastrointestinal: Yes: WNL, Normal Bowel Sounds Renal/: Yes: WNL Cardiovascular: Yes: WNL, Regular Rate and Rhythm Musculoskeletal: Yes: WNL Extremities: Yes: WNL Integumentary: Yes: WNL Neurological: Yes: WNL, Alert, Oriented ...Motor Strength: WNL Psychiatric: Yes: WNL, Alert, Oriented - Other Data Labs, Other Data: CBC, BMP 05/17/18 14:50 05/17/18 16:45 Troponin, BNP 05/17/18 05/17/18 14:50 16:45 Troponin I Cancelled 0.10 H B-Natriuretic Peptide Cancelled 2162 H Troponin, BNP 05/17/18 05/17/18 14:50 16:45 Troponin I Cancelled 0.10 H B-Natriuretic Peptide Cancelled 2162 H Imaging - Results Chest X-ray: Pending EKG: Pending Assessment/Plan - Problems (1) Elevated troponin Assessment/Plan: Mild elevation, essentially unchanged since 2017. Pt with hx severely reduced LVEF. S/p CABG and coronary stents. From a cardiac standpoint, pt may be followed as an outpatient. An outpatient stress MIBI will be arranged for next week. Code(s): R79.89 - OTHER SPECIFIED ABNORMAL FINDINGS OF BLOOD CHEMISTRY (2) CAD (coronary artery disease) Code(s): I25.10 - ATHSCL HEART DISEASE OF [place] CORONARY ARTERY W/O ANG PCTRS (3) Chronic systolic CHF (congestive heart failure) Assessment/Plan: On carvedilol, losartan; furosemide prn. Consider stopping amlodipine and starting spironolactone; f/u BUN/Cr and electrolytes carefully if this change is made. Is and Os, daily weight. Code(s): I50.22 - CHRONIC SYSTOLIC (CONGESTIVE) HEART FAILURE (4) Hx of CABG Code(s): Z95.1 - PRESENCE OF AORTOCORONARY BYPASS GRAFT (5) Hyperlipidemia Code(s): E78.5 - HYPERLIPIDEMIA, UNSPECIFIED (6) Hypertension Code(s): I10 - ESSENTIAL (PRIMARY) HYPERTENSION (7) ICD (implantable cardioverter-defibrillator) malfunction Code(s): T82.9XXA - UNSP COMP OF CARDIAC AND VASCULAR PROSTH DEV/GRFT, INIT
[2018-05-17] MEDS ORDERED: ALBUTEROL SO4 0.083% IH SOL 2.5 MG/3 ML VIAL.NEB. NEB PRN (21:56)
[2018-05-17] MEDS ORDERED: ATORVASTATIN CA 40 MG TABLET (FP) PO SCH (22:00)
[2018-05-17] MEDS ORDERED: ATORVASTATIN CA 40 MG TABLET (FP) ONE (22:08)
[2018-05-17] MEDS ORDERED: CARVEDILOL 12.5 MG TABLET (FP) ONE (22:08)
[2018-05-17] MEDS: CARVEDILOL 25 MG TABLET (FP) PO SCH (22:16)
[2018-05-17] MEDS: INSULIN SLIDING SCALE (NOVOLOG) 1 VIAL SQ SCH (22:16)
[2018-05-18 04:40] VITALS: BMI 27.8
[2018-05-18] MEDS: INSULIN SLIDING SCALE (NOVOLOG) 1 VIAL SQ SCH ×2 (06:24→11:32)
[2018-05-18 06:27] LABS: HEMATOCRIT 37.8 % (35.4-49); HEMOGLOBIN 12.7 GM/dL (11.7-16.9); MCH 29.1 pg (25.7-33.7); MCHC 33.5 g/dl (32.0-35.9); MEAN CELL VOLUME 86.8 fl (80-96); MEAN PLT VOLUME 8.8 fl (7.5-11.1); PLATELET COUNT 221 K/MM3 (134-434); RBC 4.36 M/mm3 (4.00-5.60); RDW 14.7 % (11.9-15.9); WHITE BLOOD COUNT 7.8 K/mm3 (4.0-10.0)
[2018-05-18 06:40] LABS: INR 1.07 (0.83-1.09); PROTHROMBIN TIME (PATIENT) 12.6 SEC (9.7-13.0)
[2018-05-18 06:43] LABS: ACTIVATED PTT 28.9 SECONDS (25.2-36.5)
[2018-05-18 07:35] LABS: ANION GAP 7 MMOL/L (8-16); BLOOD UREA NITROGEN 26 mg/dL (7-18); CALCIUM 8.5 mg/dL (8.5-10.1); CHLORIDE 110 mmol/L (98-107); CO2 30 mmol/L (21-32); CREATININE 1.1 mg/dL (0.55-1.3); GLUCOSE,RANDOM 94 mg/dL (74-106); MAGNESIUM 1.8 mg/dL (1.8-2.4); PHOSPHOROUS 3.5 mg/dL (2.5-4.9); POTASSIUM 4.3 mmol/L (3.5-5.1); SODIUM 147 mmol/L (136-145)
[2018-05-18] MEDS ORDERED: TIOTROPIUM BROMIDE 2.5 MCG (SPIRIVA) RESPIMAT INHALER IH SCH (10:00)
[2018-05-18] MEDS ORDERED: MEMANTINE HCL 10 MG TABLET (FP) PO SCH (10:00)
[2018-05-18] MEDS: CARVEDILOL 25 MG TABLET (FP) PO SCH (10:00)
[2018-05-18] MEDS ORDERED: ASPIRIN 81 MG CHEWABLE TABLETS PO SCH (10:00)
[2018-05-18] MEDS ORDERED: FUROSEMIDE 40 MG TABLET (FP) PO SCH (10:00)
[2018-05-18] MEDS ORDERED: amLODIPine BESYLATE 5 MG TABLET (FP) PO SCH (10:00)
[2018-05-18] MEDS ORDERED: LOSARTAN POTASSIUM 25 MG TABLET PO SCH (10:00)
--- NOTE | 2018-05-18 13:27 | PN ---
Progress Note, Physician Chief Complaint: Pt alert; knows he is at [facility]; says he has no problems, but that some people brought him her for an unknown reason. Denies chest pai9n, dyspnea, palpitations, dizzienss. 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 Patient is slightly inconsistent with his story and difficult to get answer from but his son at bedside states that he appears weak and different and that he was complaining of left arm numbness at home along with some right shoulder pain and left arm numbness. His appetite has been decreased today but denies nausea, vomiting, fevers, chills, cough, chest pain, headache, syncope, or other symptoms. - Current Medication List Current Medications: Active Medications Albuterol Sulfate (Ventolin 0.083% Nebulizer Soln -) 1 amp NEB Q4H PRN PRN Reason: SHORT OF BREATH/WHEEZING Amlodipine Besylate (Norvasc -) 5 mg PO DAILY [facility] Last Admin: 05/18/18 10:00 Dose: 5 mg Aspirin (Asa -) 81 mg PO DAILY [facility] Last Admin: 05/18/18 10:00 Dose: 81 mg Atorvastatin Calcium (Lipitor -) 40 mg PO HS [facility] Last Admin: 05/17/18 22:16 Dose: 40 mg Carvedilol (Coreg -) 25 mg PO BID [facility] Last Admin: 05/18/18 10:00 Dose: 25 mg Furosemide (Lasix -) 40 mg PO DAILY [facility] Last Admin: 05/18/18 10:00 Dose: 40 mg Insulin Aspart (Novolog Vial Sliding Scale -) 1 vial SQ ACHS [facility]; Protocol Last Admin: 05/18/18 11:32 Dose: Not Given Losartan Potassium (Cozaar -) 25 mg PO DAILY [facility] Last Admin: 05/18/18 10:00 Dose: 25 mg Memantine (Namenda -) 10 mg PO DAILY [facility] Last Admin: 05/18/18 10:00 Dose: 10 mg Tiotropium [place] (Spiriva Respimat) 2 puff IH DAILY [facility] Last Admin: 05/18/18 10:00 Dose: 2 puff - Objective Vital Signs: Vital Signs Temperature 98.8 F 05/18/18 10:00 Pulse Rate 50 L 05/18/18 10:00 Respiratory Rate 20 05/18/18 10:00 Blood Pressure 148/72 05/18/18 10:00 O2 Sat by Pulse Oximetry (%) 97 05/18/18 09:00 Constitutional: Yes: No Distress Eyes: Yes: WNL HENT: Yes: WNL Neck: Yes: WNL Cardiovascular: Yes: S1, S2 (split) Labs: CBC, BMP 05/18/18 05:30 05/18/18 05:30 INR, PTT INR 1.07 (0.83-1.09) 05/18/18 05:30 Problem List - Problems (1) Elevated troponin Assessment/Plan: Mild elevation, essentially unchanged since 2017. Pt with hx severely reduced LVEF. S/p CABG and coronary stents. From a cardiac standpoint, pt may be followed as an outpatient. An outpatient stress MIBI will be arranged for next week. Code(s): R79.89 - OTHER SPECIFIED ABNORMAL FINDINGS OF BLOOD CHEMISTRY (2) CAD (coronary artery disease) Code(s): I25.10 - ATHSCL HEART DISEASE OF [place] CORONARY ARTERY W/O ANG PCTRS (3) Chronic systolic CHF (congestive heart failure) Assessment/Plan: On carvedilol, losartan; furosemide prn. Consider stopping amlodipine and starting spironolactone; f/u BUN/Cr and electrolytes carefully if this change is made. Is and Os, daily weight. Code(s): I50.22 - CHRONIC SYSTOLIC (CONGESTIVE) HEART FAILURE (4) Hx of CABG Code(s): Z95.1 - PRESENCE OF AORTOCORONARY BYPASS GRAFT (5) Hyperlipidemia Code(s): E78.5 - HYPERLIPIDEMIA, UNSPECIFIED (6) Hypertension Code(s): I10 - ESSENTIAL (PRIMARY) HYPERTENSION (7) ICD (implantable cardioverter-defibrillator) malfunction Code(s): T82.9XXA - UNSP COMP OF CARDIAC AND VASCULAR PROSTH DEV/GRFT, INIT
--- NOTE | 2018-05-18 14:15 | EKG ---
Test Reason : Blood Pressure : / mmHG Vent. Rate : 050 BPM Atrial Rate : 072 BPM P-R Int : 000 ms QRS Dur : 162 ms QT Int : 536 ms P-R-T Axes : 000 -64 110 degrees QTc Int : 488 ms SINUS RHYTHM WITH COMPLETE HEART BLOCK AND Ventricular-paced rhythm ABNORMAL ECG WHEN COMPARED WITH ECG OF 17-MAY-2018 13:40, NO SIGNIFICANT CHANGE WAS FOUND Confirmed by AMANDA RICKS, FLAKO ([id number]) on 05/18/2018 2:15:13 PM Referred By: Confirmed By:FLAKO PATEL MD
[2018-05-18] MEDS ORDERED: PT OWN MED DRAWER 7, Y5N ONE (14:27)
--- NOTE | 2018-05-18 14:49 | DS ---
Physical Examination Vital Signs: Vital Signs Temperature 98.8 F 05/18/18 10:00 Pulse Rate 50 L 05/18/18 10:00 Respiratory Rate 20 05/18/18 10:00 Blood Pressure 148/72 05/18/18 10:00 O2 Sat by Pulse Oximetry (%) 97 05/18/18 09:00 Findings/Remarks: Patient is a 77 y/o male resident with past medical history of HTN, DM, hyperlipidemia, hx of [place] s/p CABG 2002, combined CHF (RVSP 30-40, echo 05/06), s/ p ICD, and COPD. Patient presented to ER with complaints of L arm numbness, R shoulder pain, and feeling weak. IN ER Head CT neg for ischemia or hemorrhage. Elevated troponin x 2 (0.10, 0.12), patient has history of elevated troponin level. EKG performed and cardiology consult was made. Evaluated by cardiology and recommendations appreciated. Denies chest pain, dizziness, SOB. Constitutional: Yes: No Distress, Calm Eyes: Yes: Conjunctiva Clear Neck: Yes: Supple Cardiovascular: Yes: Bradycardia Respiratory: Yes: Regular, CTA Bilaterally Gastrointestinal: Yes: Normal Bowel Sounds, Soft Musculoskeletal: Yes: WNL Extremities: Yes: WNL Edema: No Integumentary: Yes: WNL Neurological: Yes: Alert, Oriented Psychiatric: Yes: Alert, Oriented Labs: CBC, BMP 05/18/18 05:30 05/18/18 05:30 Troponin, BNP 05/17/18 05/17/18 05/18/18 14:50 16:45 04:00 Troponin I Cancelled 0.10 H 0.12 H B-Natriuretic Peptide Cancelled 2162 H Discharge Summary Reason For Visit: RULED OUT FOR MYOCARDIAL INFARCTION Current Active Problems Elevated troponin (Acute) Procedures: Principal: EKG, CXR, Head CT scan Hospital Course: see progress notes Troponin, BNP 05/17/18 05/17/18 05/18/18 14:50 16:45 04:00 Troponin I Cancelled 0.10 H 0.12 H B-Natriuretic Peptide Cancelled 2162 H CBC, BMP 05/18/18 05:30 05/18/18 05:30 Active Medications Generic Name Dose Route Start Last Admin Trade Name Freq PRN Reason Stop Dose Admin Albuterol Sulfate 1 amp 05/17/18 21:56 Ventolin 0.083% Nebulizer Soln - NEB Q4H PRN SHORT OF BREATH/WHEEZING Amlodipine Besylate 5 mg 05/18/18 10:00 05/18/18 10:00 Norvasc - PO 5 mg DAILY [facility] Administration Aspirin 81 mg 05/18/18 10:00 05/18/18 10:00 Asa - PO 81 mg DAILY [facility] Administration Atorvastatin Calcium 40 mg 05/17/18 22:00 05/17/18 22:16 Lipitor - PO 40 mg HS [facility] Administration Carvedilol 25 mg 05/17/18 22:00 05/18/18 10:00 Coreg - PO 25 mg BID [facility] Administration Furosemide 40 mg 05/18/18 10:00 05/18/18 10:00 Lasix - PO 40 mg DAILY [facility] Administration Insulin Aspart 1 vial 05/17/18 22:00 05/18/18 11:32 Novolog Vial Sliding Scale - SQ Not Given ACHS [facility] Protocol Losartan Potassium 25 mg 05/18/18 10:00 05/18/18 10:00 Cozaar - PO 25 mg DAILY [facility] Administration Memantine 10 mg 05/18/18 10:00 05/18/18 10:00 Namenda - PO 10 mg DAILY [facility] Administration Tiotropium [place] 2 puff 05/18/18 10:00 05/18/18 10:00 Spiriva Respimat IH 2 puff DAILY [facility] Administration Condition: Stable - Instructions Diet, Activity, Other Instructions: Patient to follow up with PMD in 3-4 days Patient to follow up with overlay plastician on Tuesday for stress test and monitor lft after starting spironolactone continue with current med regimen if chest pain develops call pmd or go to ER 1L fluid restriction patient monitor weight daily, if more than 5lb weight gain in 1 day call [facility] or pmd Referrals: Tammie Bustillo MD [Primary Care Provider] - Disposition: HOME - Home Medications Comprehensive Discharge Medication List: Ambulatory Orders Aspirin 81 mg PO DAILY 07/28/12 Atorvastatin Ca [Lipitor] 40 mg PO HS 07/28/12 Furosemide [Lasix -] 40 mg PO DAILY 07/28/12 Acetaminophen [Tylenol .Regular Strength -] 650 mg PO Q4H PRN #0 tablet Albuterol 0.083% Nebulizer [place] [Ventolin 0.083% Nebulizer Soln -] 1 amp NEB Q4H PRN #1 box 05/09/16 Tiotropium [place] [Spiriva] 1 puff IH DAILY #1 inh 05/09/16 Carvedilol [Coreg -] 25 mg PO BID tablet 04/28/18 Amlodipine Besylate 5 mg PO DAILY 05/17/18 Losartan Potassium 25 mg PO DAILY 05/17/18 Memantine HCl 10 mg PO DAILY 05/17/18 Metformin HCl [Glucophage] 500 mg PO DAILY 05/17/18
[2018-05-18 15:01] VITALS: BP 109/57; PULSE 58; TEMP 98.2
[2018-05-19] MEDS ORDERED: SPIRONOLACTONE 25 MG TABLET (FP) PO SCH (10:00)
== END 2018-05-18 16:00 | disposition home or self-care (01) ==
LOC: JER 13:23 → JERBED 19:07 → J4W 05-18 03:19
PROVIDERS: ADMIT Internal Medicine; ATTEND Family Medicine
PROC: 3E0F7GC Introduction of Other Therapeutic Substance into Respiratory Tract, Via Natural or Artificial Opening (ICD-10-PCS; principal; 2018-05-17)
DX: R77.8 Other specified abnormalities of plasma proteins (principal); R53.81 Other malaise; I50.22 Chronic systolic (congestive) heart failure; I11.0 Hypertensive heart disease with heart failure; E78.5 Hyperlipidemia, unspecified; E11.9 Type 2 diabetes mellitus without complications; I25.2 Old myocardial infarction; I25.10 Atherosclerotic heart disease of native coronary artery without angina pectoris; J44.9 Chronic obstructive pulmonary disease, unspecified; Z95.1 Presence of aortocoronary bypass graft; Z95.5 Presence of coronary angioplasty implant and graft; Z95.810 Presence of automatic (implantable) cardiac defibrillator; Z79.82 Long term (current) use of aspirin; Z79.84 Long term (current) use of oral hypoglycemic drugs; T82.9XXA Unspecified complication of cardiac and vascular prosthetic device, implant and graft, initial encounter; Y71.1 Therapeutic (nonsurgical) and rehabilitative cardiovascular devices associated with adverse incidents; Y92.9 Unspecified place or not applicable
CPT/HCPCS: 36415; 70450-TC; 71045-TC-FY; 80048; 80053; 81003; 82962; 83735; 83880; 84100; 84484; 85025; 85027; 85610; 85730; 93005; 93010; 94640; 99285-25; G0378